=== PATIENT | female | born 1990 | race Caucasian/White ===

== ENCOUNTER → 2021-01-08 14:53 | Outpatient (CLI) | payer OTHER, SELFPAY ==
[2021-01-08 10:39] VITALS: BMI 29.3
[2021-01-08 16:30] LABS: Amphetamine Urine VISTA NEGATIVE (<1000 ng/mL); Barbiturate Urine VISTA NEGATIVE (< 200 ng/mL); Benzodiazepine Urine VISTA NEGATIVE (< 200 ng/mL); Cocaine Urine VISTA NEGATIVE (< 300 ng/mL); Ecstacy Urine VISTA NEGATIVE (< 500 ng/mL); Methadone Urine VISTA NEGATIVE (< 300 ng/mL); PCP Urine VISTA NEGATIVE (< 25 ng/mL); THC Urine VISTA NEGATIVE (< 50 ng/mL); Vista UDS pH Range 6
[2021-01-11 03:07] LABS: Chlamydia By Nucleic Acid AMP Negative (Negative)
[2021-01-11 13:29] LABS: Gonococcus By Nucleic Acid AMP Negative (Negative)
[2021-01-16 12:41] LABS: HPV APTIMA, High Risk Negative (Negative)
== END ==
PROVIDERS: Referring Provider Obstetrics & Gynecology; Visit Provider Obstetrics & Gynecology
DX: Z34.00 Encounter for supervision of normal first pregnancy, unspecified trimester (principal); Z12.4 Encounter for screening for malignant neoplasm of cervix
CPT/HCPCS: 80307; 87086; 87491; 87591; 87624; 88175; G0145

== ENCOUNTER → 2021-01-24 11:09 | Outpatient (CLI) | payer OTHER, SELFPAY ==
[2021-01-08 10:39] VITALS: BMI 29.3
[2021-01-24 11:37] LABS: Absolute Lymphocyte Count 1.15 X10^3/uL (0.83-4.51); Absolute Neutrophil Count 5.1 X10^3/uL (2.0-7.7); Basophil# 0.02 X10^3/uL; Basophil% 0.3 % (0-1); Eosinophil# 0.02 X10^3/uL; Eosinophils% 0.3 % (0-5); Hematocrit 39.3 % (37-47); Hemoglobin 13.4 g/dL (12.0-15.0); Lymphocyte # 1.15 X10^3/ul (0.83-4.51); Mean Corp Hgb Conc 34.1 g/dL (32-36); Mean Corpuscular Hgb 29.8 pg (27.0-32.0); Mean Corpuscular Volume 87.3 fL (81-99); Mean Platelet Vol. 9.5 fl (6.2-12.0); Monocyte# 0.46 X10^3/uL; Monocyte% 6.8 % (0-10); NRBC Flagged by Analyzer 0 % (0-5); Neutrophil % 75.2 % (47-70); Platelet Count 258 K/mm3 (150-450); RBC Distribution Width CV 12.1 % (11.6-14.6); RBC Distribution Width SD 38.8 fl (35.1-43.9); White Blood Count 6.8 K/mm3 (4.4-11.0)
[2021-01-24 12:20] LABS: NATERA MAILED SPECIMEN
[2021-01-24 12:38] LABS: HIV - WCH Non-Reactive (Nonreactive); Hepatitis B Surface Antigen Non-Reactive (Nonreactive); Hepatitis C Antibody Non-Reactive (Nonreactive); Rubella IgG Reactive (Nonreactive); Syphilis Antibodies Non-reactive
== END ==
PROVIDERS: Referring Provider Obstetrics & Gynecology; Visit Provider Obstetrics & Gynecology
DX: Z34.81 Encounter for supervision of other normal pregnancy, first trimester (principal)
CPT/HCPCS: 36415; 85025; 86703; 86762; 86780; 86803; 86850; 86900; 86901; 87340

== ENCOUNTER → 2021-05-17 09:03 | Outpatient (CLI) | payer OTHER, SELFPAY ==
[2021-05-17 09:23] LABS: Absolute Neutrophil Count 10.8 X10^3/uL (2.0-7.7); Basophil# 0.02 X10^3/uL; Basophil% 0.2 % (0-1); Eosinophil# 0.05 X10^3/uL; Eosinophils% 0.4 % (0-5); Hematocrit 36.3 % (37-47); Hemoglobin 12.4 g/dL (12.0-15.0); Mean Corp Hgb Conc 34.2 g/dL (32-36); Mean Corpuscular Hgb 30.8 pg (27.0-32.0); Mean Corpuscular Volume 90.3 fL (81-99); Mean Platelet Vol. 10.2 fl (6.2-12.0); Monocyte# 0.74 X10^3/uL; Monocyte% 5.7 % (0-10); NRBC Flagged by Analyzer 0 % (0-5); Neutrophil # 10.78 X10^3/uL (2.7-7.7); Neutrophil % 82.9 % (47-70); Platelet Count 214 K/mm3 (150-450); RBC Distribution Width CV 12.7 % (11.6-14.6); RBC Distribution Width SD 41.7 fl (35.1-43.9); Red Blood Count 4.02 M/mm3 (4.2-5.4)
[2021-05-17 09:32] LABS: Glucose Challenge Gest 1H 50g 91 mg/dL (70-140)
== END ==
PROVIDERS: Referring Provider Obstetrics & Gynecology; Visit Provider Obstetrics & Gynecology
DX: Z34.01 Encounter for supervision of normal first pregnancy, first trimester (principal)
CPT/HCPCS: 36415; 82950; 85025

== ENCOUNTER 2021-07-18 20:43 | Outpatient (CLI) | payer OTHER, MEDICAID, SELFPAY | END 2021-07-18 23:59 | disposition home or self-care (01) | LOC: LABSPEC 10-10 20:43 | PROVIDERS: Visit Provider Obstetrics & Gynecology | DX: Z34.93 Encounter for supervision of normal pregnancy, unspecified, third trimester (principal); Z3A.36 36 weeks gestation of pregnancy | CPT/HCPCS: 87081 ==

== ENCOUNTER 2021-07-23 16:28 | Inpatient (IN) | payer OTHER, MEDICAID, SELFPAY ==
[2021-07-23] VITALS (8 sets, daily range): BP systolic 119–134; BP diastolic 63–66; PULSE 73–127; TEMP 36.6–36.8; O2SAT 80–98; BMI 33.0
[2021-07-23 16:26] LABS: ROM Internal Control Test YES-OK TO RESULT pt. (Internal QC)
[2021-07-23 16:27] LABS: ROM Patient Test POSITIVE (Negative)
[2021-07-23] MEDS: Lactated Ringers 1,000 ML 50 ML IV (16:55)
[2021-07-23 17:29] LABS: Absolute Neutrophil Count 8.1 X10^3/uL (2.0-7.7); Basophil# 0.04 X10^3/uL; Basophil% 0.4 % (0-1); Eosinophil# 0.04 X10^3/uL; Eosinophils% 0.4 % (0-5); Hematocrit 33.7 % (37-47); Hemoglobin 11.2 g/dL (12.0-15.0); Lymphocyte % 9.3 % (19-41); Mean Corp Hgb Conc 33.2 g/dL (32-36); Mean Corpuscular Hgb 29.4 pg (27.0-32.0); Mean Corpuscular Volume 88.5 fL (81-99); Mean Platelet Vol. 11.7 fl (6.2-12.0); Monocyte# 0.46 X10^3/uL; Monocyte% 4.7 % (0-10); NRBC Flagged by Analyzer 0 % (0-5); Neutrophil # 8.13 X10^3/uL (2.7-7.7); Neutrophil % 83.7 % (47-70); Platelet Count 247 K/mm3 (150-450); RBC Distribution Width CV 13.3 % (11.6-14.6); RBC Distribution Width SD 42.7 fl (35.1-43.9); Red Blood Count 3.81 M/mm3 (4.2-5.4); White Blood Count 9.7 K/mm3 (4.4-11.0)
--- NOTE | 2021-07-23 17:57 | HP.PCM.OB_ITS ---
HPI - General General Date of Admission: 07/23/21 HPI Narrative RAYA AMANDA, is a 31 @ 36 weeks 5 days F who presents to L&D with permature rupture of membranes. Maternal Data Information SALMA Calculator Estimated Delivery Date Method Current WG Current Estimate 08/15/21 LMP (Certain) 36w 5d Other Estimates 08/11/21 Ultrasound #1 37w 2d PFSH PFSH Medical History (Updated 07/23/21 @ 17:[address] Mable Wong, DO) History of cleft lip Home Medications prenat.vits,franck,zcz-efse-vicid 1 tab PO DAILY 12/19/20 [History Last Taken 07/22/21 08:00] famotidine 20 mg tablet 20 mg PO BID #30 tab 06/27/21 [Rx Last Taken Unknown] Allergy/AdvReac Type Severity Reaction Status Date / Time No Known Allergies Allergy Verified 07/23/21 15:52 Family History Grandfather Cancer Surgical History (Updated 07/23/21 @ 17:10 by Roopa Francisco) H/O bone graft H/O cleft lip repair Social History adopted: No household members: significant other current occupational status: employed current occupation: [employer] pets and animals: Yes pets and animals: dog(s) and ferret(s) Smoking Status: Never smoker alcohol intake: current details: not while substance use type: does not use History 1 Elective abortions Hx Para 0 Spontaneous abortions Hx # Term Pregnancies Ectopic pregnancies Hx # Pregnancies Multiple births # of living children Visit Details Expected Delivery Route/Plan Labor Preferences- CB/BF classes: enc labor support person: Chris labor intervention preferences: [] pain management options preferred: epidural cut cord/dad catch: yes : yes PP control planned: discussed discussed possible routes of delivery and associated risks: [] special requests: [] Plans covid status: counseled regarding risk of covid in vs vaccination and declined vaccination flu vaccine: declines tdap vaccine: given rhogam: NA LARC form signed: yes movement and labor precautions reviewed. Problem list reviewed and updated with the most current plan of care details and appropriate orders placed. Relevant counseling for the gestational age provided. Continue routine care and follow up unless otherwise noted in visit notes/problem list details OB Flowsheet Initial Weight: 176 lb Date -?-?-?-?-?-?-?-?-?-?-?-?- EGA Weight BP Urine Prot -?-?-?-?-?-?-?-?-?-?-?-?- Glucose FHR FuHt Pres Dilation -?-?-?-?-?-?-?-?-?-?-?-?- Effaced St Visit Note 01/08/21 -?-?-?-?-?-?-?-?-?-?-?-?- 8w 5d 176 lb 6 oz (+6 oz) 144/92 -?-?-?-?-?-?-?-?-?-?-?-?- 168 -?-?-?-?-?-?-?-?-?-?-?-?- GP - CRL consist ent with LMP 02/05/21 -?-?-?-?-?-?-?-?-?-?-?-?- 12w 5d 175 lb 8 oz (-8 oz) 126/80 Negative -?-?-?-?-?-?-?-?-?-?-?-?- Negative 160 -?-?-?-?-?-?-?-?-?-?-?-?- GP - no cramping or bleeding. Anatomy ordered. Having a boy! 03/07/21 -?-?-?-?-?-?-?-?-?-?-?-?- 17w 0d 179 lb (+3 lb) 120/80 Negative -?-?-?-?-?-?-?-?-?-?-?-?- Negative 155 -?-?-?-?-?-?-?-?-?-?-?-?- GP - no cramping or bleeding. +FM. Has not heard from MFM about anatomy scan - order re-sent 03/30/21 -?-?-?-?-?-?-?-?-?-?-?-?- 20w 2d 182 lb (+6 lb) 112/62 Negative -?-?-?-?-?-?-?-?-?-?-?-?- Negative 140 -?-?-?-?-?-?-?-?-?-?-?-?- SM- no vb lof cr amping needs fu views for anatomy 04/25/21 -?-?-?-?-?-?-?-?-?-?-?-?- 24w 0d 189 lb 9 oz (+13 lb 9 oz) 122/80 Negative -?-?-?-?-?-?-?-?-?-?-?-?- Negative 150 -?-?-?-?-?-?-?-?-?-?-?-?- GP - no ctx, LOF , VB, DFM. Anatomy nl. GCT next visit. 05/17/21 -?-?-?-?-?-?-?-?-?-?-?-?- 27w 1d 193 lb 6 oz (+17 lb 6 oz) 136/84 Negative -?-?-?-?-?-?-?-?-?-?-?-?- Negative 154 28 -?-?-?-?-?-?-?-?-?-?-?-?- MH-No VB, LOF. G ood Fm. 28 wk labs reviewed-nl. Larc done. Considering tdap. declines flu vaccine 06/01/21 -?-?-?-?-?-?-?-?-?-?-?-?- 29w 2d 194 lb 4 oz (+18 lb 4 oz) 114/80 Negative -?-?-?-?-?-?-?-?-?-?-?-?- Negative -?-?-?-?-?-?-?-?-?-?-?-?- 06/14/21 -?-?-?-?-?-?-?-?-?-?-?-?- 31w 1d 198 lb 2 oz (+22 lb 2 oz) 120/78 Negative -?-?-?-?-?-?-?-?-?-?-?-?- Negative 155 32 -?-?-?-?-?-?-?-?-?-?-?-?- JV- no lof, vagi nal bleeding or dec fm. JV- no lof, vaginal bleeding or dec fm. normal GCT. (note from last week was erased, no conerns last visit) 06/27/21 -?-?-?-?-?-?-?-?-?-?-?-?- 33w 0d 198 lb (+22 lb) 100/80 Negative -?-?-?-?-?-?-?-?-?-?-?-?- Negative 159 33 -?-?-?-?-?-?-?-?-?-?-?-?- JV- no lof, vagi nal bleeding, or dec fm. pepcid for heart burn. pt has referred pain to middle of back. 07/12/21 -?-?-?-?-?-?-?-?-?-?-?-?- 35w 1d 195 lb 8 oz (+19 lb 8 oz) 118/72 Trace -?-?-?-?-?-?-?-?-?-?-?-?- Negative 154 35 -?-?--?-?-?-?-?-?-?-?-?-?- MH-No VB, LOF. G ood FM. tdap given. 07/18/21 -?-?-?-?-?-?-?-?-?-?-?-?- 36w 0d 199 lb 6 oz (+23 lb 6 oz) 118/88 -?-?-?-?-?-?-?-?-?-?-?-?- 140 36 Cephalic 1 -?-?-?-?-?-?-?-?-?-?-?-?- 20 -4 SM- no vb lof good fm no reuglar ctx gbs done 07/23/21 -?-?-?-?-?-?-?--?-?-?-?-?- 36w 5d 198 lb 3.129 oz (+22 lb 3.129 oz) 130/66 -?-?-?-?-?-?-?-?-?-?-?-?- -?-?-?-?-?-?-?-?-?-?-?-?- ROS Constitutional Constitutional: Denies change in weight, fatigue, fever(s), headache(s), poor a ppetite or weakness Eyes Eyes: Denies blurry vision, change in vision, seeing flashes or spots in vision ENT HEENT: Denies dizziness, headache(s), loss taste/smell or sore throat Cardiovascular Cardiovascular: Denies chest pain, dizziness, dyspnea, irregular heart rhythm, leg edema, palpitations, rapid heart rate or vomiting Respiratory/Chest Respiratory/Chest: Denies chest tightness, cough, dyspnea or breast pain Gastrointestinal Gastrointestinal: Denies abdominal pain, anorexia, constipation, cramping, diarrhea, hemorrhoids, vomiting or weight changes Genitourinary Genitourinary: Denies dysuria, flank pain, genital lesions, genital pain, urinary frequency or urinary urgency Musculoskeletal Musculoskeletal: Denies back pain, difficulty walking, joint pain, limited range of motion, muscle cramps or numbness Integumentary Integumentary: Denies lesions or unusual bruising Neurologic Neurologic: Denies abnormal movements, abnormal speech, dizziness, numbness, seizure-like activity or syncope Psychiatric Psychiatric: Denies anxiety, behavioral changes, change in appetite, change in libido, cognitive impairment, confusion, depression, difficulty concentrating, hallucinations or suicidal thoughts Endocrine Endocrinology: Denies excessive sweating, polydipsia or polyuria Hematologic/Lymphatic Hematologic/Lymphatic: Denies easy bleeding, easy bruising or lymphadenopathy Allergic/Immunologic Allergic/Immunologic: Denies itchy eyes, lip swelling, seasonal rhinorrhea, rhinitis, throat swelling, tongue swelling, eczemia, wheezing or asthma Vital Signs Vital Signs Vital Signs: 07/23/21 15:51 Pulse Rate 79 Blood Pressure 130/66 H BP Systolic 130 BP Diastolic 66 Pulse Ox 98 Weight Weight: 198 lb 3.129 oz Body Mass Index (BMI) 33.0 Physical Exam Const alert, oriented x3, no apparent distress and healthy appearing General Appearance: cooperative; Negative for anxious HEENT normocephalic Face and Sinus: normal facial exam Eyes EOMs intact bilaterally and no scleral icterus General Eye: normal appearance of both eyes Neck full ROM and supple Lymph Lymphatic: no lymphadenopathy noted Chest Chest: abnormal inspection of the chest Resp normal respiratory effort Effort and Inspection: able to speak in complete sentences Cardio regular rate GI soft to palpation and non-tender Inspection: gravid Palpation: soft; Negative for tender external exam normal Amniotic Fluid: ROM+plus positive + Back/Spine no CVA tenderness Extremity normal to inspection, full ROM and no clubbing, cyanosis or edema General Extremity: Negative for calf tenderness or edema Skin Lesions: no lesions Rashes: no rashes Psych mental status grossly normal Labs Labs Labs: Blood Type O POSITIVE Antibody Screen NEGATIVE Hct 33.7 % (37-47) L Hgb 11.2 g/dL (12.0-15.0) L Syphilis Total Ab Non-reactive Rubella IgG Antibody Reactive (Nonreactive) Hep Bs Antigen Non-Reactive (Nonreactive) Neisseria gonorrhoeae DNA (VAMSI) Negative (Negative) HIV 1&2 Antibody Non-Reactive (Nonreactive) Glucose 1 Hr 50 gm 91 mg/dL (70-140) Assessment & Plan (1) PROM (premature rupture of membranes): PLAN: Patient presents IOL, plan management for with cytoted (buccal) pitocin/AROM. Pain management: plans epidural. GBS negative. Management of any complications: none I have reviewed the [facility] and made any clinically relevant updates. (2) Supervision of normal first : QUALIFIERS: Trimester: first trimester Qualified Code(s): Z34.01 - Encounter for supervision of normal first , first trimester COMMENT: PRR SALMA 08/15/21 boy BF: Keri) (3) : QUALIFIERS: Weeks of gestation: 36 weeks Qualified Code(s): Z3A.36 - 36 weeks gestation of COMMENT: declines carrier and AFP, LR genetics Male; NL anatomy, nml 1 hr GCT (4) History of tetanus, diphtheria, and acellular pertussis booster vaccination (Tdap): COMMENT: 07/12/21 (5) History of cleft lip: COMMENT: unilateral with repair as , offered genetic counseling - declined
[2021-07-23] MEDS: miSOPROStol 25 MCG TABLET PO (20:06)
[2021-07-23] MEDS: 0.9% Saline Lock 10 ML Syringe IV (20:07)
[2021-07-24] VITALS (58 sets, daily range): BP systolic 100–153; BP diastolic 52–76; PULSE 44–116; RESP 16; TEMP 35.9–38.6; O2SAT 78–100
[2021-07-24] MEDS: miSOPROStol 25 MCG TABLET PO (00:07)
[2021-07-24] MEDS: 0.9% Saline Lock 10 ML Syringe IV (04:12)
[2021-07-24] MEDS: Oxytocin 30 units/NS 500 ml 30 UNITS/500 ML IV.SOLN IV (04:17)
[2021-07-24] MEDS: Lactated Ringers 500 ML 999 ML IV ×4 (06:35→16:47)
[2021-07-24] MEDS: Ondansetron 4 MG/2 ML Vial IV (06:47)
[2021-07-24] MEDS: fentaNYL-bupivacaine (epidural) 100 ML BAG EPIDURAL ×3 (09:00→17:29)
[2021-07-24] MEDS: Amnioinfusion- 0.9% NS 1,000 ML IV.SOLN. 1000 ML INTRA-UTER (10:39)
[2021-07-24] MEDS: Lactated Ringers 1,000 ML 200 ML IV (12:43)
[2021-07-24] MEDS: Acetaminophen 500 MG Tablet PO (13:31)
--- NOTE | 2021-07-24 17:47 | PLAC_PTH ---
PATIENT: RAYA AMANDA LOC: [facility] U#:[id number] AGE/SX: 31/F ROOM: WP017 RE07/23/[address]: Dr. Mable Wong DO : 1990 BED: 1 DIS: 07/26/2021 SPEC #: [id number] RECD: 07/24/21 21:16 STATUS: ROCKY BRIAN #: [id number] RE: 07/24/21 17:[address]: Mable Wong DEPT: SURGICAL PATHOLOGY RECD BY: Luann Guadarrama ENTERED: 07/25/21 09:29 SP TYPE: PLACENTA OTHR DR: No Primary Care Phys Tissues: Placenta, NOS Procedures: Surgery Specimen Level V HEADER OPERATION: Vaginal delivery PRE-OP DIAGNOSIS: Triple I TISSUE SUBMITTED: Placenta MICROSCOPIC DIAGNOSIS Placenta: Placental disc - third trimester placenta (511 gm). - A focal area of infarction (1 cm in diameter). - Focal acute vasculitis of subamniotic blood vessels. Membranes ? moderate acute chorioamnionitis. Umbilical cord - three blood vessels and moderate acute funisitis. TANYA:rebecca 07/27/2021 MICROSCOPIC DESCRIPTION Slides are reviewed. GROSS DESCRIPTION SPECIMEN: PLACENTA / CLINICAL INFORMATION: A. Weight: 3.13 kg B. Gestational Age: 36 weeks C. Sex: Male PLACENTAL WEIGHT (POST FIXATION): 511 gm PLACENTAL DIMENSIONS: 19 x 15 x 2.8 cm PLACENTAL SHAPE: Usual ovoid PLACENTAL WEIGHT FOR GESTATIONAL AGE: Within 10-99th percentile MEMBRANES - Present A. Insertion: Marginal B. Site of rupture from edge: 8 cm from edge of placental disc C. Color of membrane: Joshi-caballero D. Abnormalities: None UMBILICAL CORD - Present A. Color: Joshi-caballero B. Insertion: Paracentral C. Length: 31 cm D. Diameter: 1.2 cm E. Number of vessels: Three F. Abnormalities: None PLACENTAL DISC - Present A. Color of surface: Joshi-caballero B. surface abnormalities: None C. Maternal cotyledons: Intact with minimal tears D. Attached retro placental clot: No clot E. Cut surface: Dark red and spongy F. Lesions: Sections reveal a joshi, hemorrhagic lesion measuring 1 cm in diameter. G. Separate clot: Absent SECTIONS SUBMITTED: 1. Membrane roll 2. Cord, maternal end 3. Cord, end 4. Placental disc, and maternal surfaces, lesion 5. Placental disc, and maternal surfaces 6. Placental disc, and maternal surfaces SJ:rebecca 07/26/2021 TC:2 CPT: 88940
[2021-07-24] MEDS: Oxytocin 30 units/NS 500 ml 30 UNITS/500 ML IV.SOLN 334 UNITS IV (17:53)
--- NOTE | 2021-07-24 18:01 | OP.PCM_ITS ---
Assessment & Plan (1) Chorioamnionitis in third trimester: COMMENT: amp and gent given x 1 (2) PROM (premature rupture of membranes): (3) Supervision of normal first : QUALIFIERS: Trimester: first trimester Qualified Code(s): Z34.01 - Encounter for supervision of normal first , first trimester COMMENT: PRR SALMA 08/15/21 boy BF: Chris(Adelfo) (4) : QUALIFIERS: Weeks of gestation: 36 weeks Qualified Code(s): Z3A.36 - 36 weeks gestation of COMMENT: declines carrier and AFP, LR genetics Male; NL anatomy, nml 1 hr GCT (5) History of tetanus, diphtheria, and acellular pertussis booster vaccination (Tdap): COMMENT: 07/12/21 (6) History of cleft lip: COMMENT: unilateral with repair as infant, offered genetic counseling - declined (7) Vaginal delivery: COMMENT: SM PROM 36 boy davon chorio Maternal Data Information SALMA Calculator Estimated Delivery Date Method Current WG Current Estimate 08/15/21 LMP (Certain) 36w 6d Other Estimates 08/11/21 Ultrasound #1 37w 3d Vaginal Delivery Operative Information Date of Procedure: 07/24/21 Pre-Operative Diagnosis: IAL Post-Operative Diagnosis: same Surgery / Procedure Performed: Spontaneous Vaginal Delivery Type of Anesthesia: Epidural Special Medications: none Estimated Blood Loss: 100 Fluids Replaced: crystalloid Findings Description of Procedure: Patient began pushing and delivered the head in the L OA presentation. The head was delivered atraumatically and a loose nuchal cord ?1 was identified and the infant delivered through without complication. The anterior and posterior shoulders delivered without complication followed by the rest of the infant and the was placed on the maternal abdomen. body cord tight x 2 unraveled. Delayed cord clamping was employed for approximately 60 seconds. Cord was clamped and cut and gentle traction was applied to the cord and the placenta delivered spontaneously immediately following it was noted to be intact with three-vessel cord. The perineum and vagina were inspected and noted to have a small 1st degree perineal laceration repaired in the usual fashion 3-0 rapide. EBL was 100 cc. Patient and tolerated delivery well. Presentation: KARAN Amniotic Membrane Rupture Type: Artificial Amniotic Fluid Description: Clear Placental Delivery Description: Spontaneous Placenta Disposition: [facility] Cord Vessel Description: 3 Vessels Cord Entanglement: None Delayed Cord Clamping: Yes Post Vaginal Delivery Medications Given After Delivery: IV Pitocin Episiotomy Description: None Laceration: Perineal Extension/lac and 1st degree Complication Complications: None Procedures Urinary/Genital [id number]: [id number] Vaginal Delivery [facility]
--- NOTE | 2021-07-24 18:03 | PCM.DC ---
Discharge Instructions Diet Discharge Diet: No restrictions Activity Discharge Activity: Return to Normal Activity, May Not Drive (while taking narcotic pain medications.) and May Shower May resume sexual activity in: 4-6 weeks Dressing / Incision Call your doctor if your incision/area has: Continuous Slow Oozing, Sudden Increased Bleeding, Increased Pain/ Swelling, Increased Redness and Foul Smelling Discharge Follow Up Care Please Follow Up With: Stacey Hammonds MD When: Call [phone] to make an appointment with your doctor in 6 weeks. If you had elevated blood pressure or 4th degree laceration, you will need to be seen in 2 weeks. Test Results: Test results from this visit will be discussed in further detail at your follow-up appointment, if applicable. Discharge Plan Admission Admit Date/Time: 07/23/21 16:28 Attending Provider: Mable Wong Primary Care Provider: Care Rina Haines Primary Discharge Orders/Prescriptions Prescriptions: No Action prenat.vits,franck,ydl-xdvo-svcwc Tablet 1 tab PO DAILY RF: 0 famotidine [Pepcid] 20 mg tablet 20 mg PO BID Qty: 30 RF: 6 Referrals / Follow Up: Care Physician,No Primary [Primary Care Provider] - Disposition Disposition (needs filled in before D/C Order can be placed): Home, Self Care
[2021-07-24] MEDS: Naproxen 500 MG Tablet PO (19:32)
[2021-07-24 22:02] LABS: Pathology Specimen OB SEE PATHOLOGY REPORT
[2021-07-25] VITALS (11 sets, daily range): BP systolic 101–118; BP diastolic 54–60; PULSE 68–82; RESP 16–18; TEMP 36.2–36.6; O2SAT 93–98
[2021-07-25] MEDS: Naproxen 500 MG Tablet PO ×3 (04:27→21:05)
[2021-07-25] MEDS: Lactated Ringers 1,000 ML 999 ML IV (07:51)
--- NOTE | 2021-07-25 07:51 | PCM.PN.OB ---
Subjective Subjective Patient doing well without complaints. Tolerating PO. Ambulating and voiding without difficulty. Feeding well. Denies chest pain, shortness of breath, calf pain/swelling, fevers, chills, lightheadedness. Afebrile since delivery Objective Data Objective Data Vital Signs: Vital Signs Temp Pulse Resp BP Pulse Ox 97.2 F L 68 18 106/54 L 96 07/25/21 04:23 07/25/21 04:24 07/25/21 04:23 07/25/21 04:24 07/25/21 00:54 Oxygen Delivery Method Room Air Weight: 198 lb 3.129 oz Body Mass Index (BMI) 33.0 Intake & Output: Intake and Output for Last 24 Hours 07/23/21 07/24/21 07/25/21 23:59 23:59 23:59 Intake Total 162.5 / 162.5 4482.92 / 4482.92 Output Total 450 / 450 400 / 400 Balance 162.5 / 162.5 4032.92 / 4032.92 -400 / -400 Lab / Micro Data Result Diagrams: 07/23/21 16:55 Micro: Microbiology 07/23/21 16:55 Nasal Secretion SARS-CoV-2 Antigen (Rapid) - Final Physical Exam Const alert and oriented x3 HEENT normocephalic Eyes PERRL Neck full ROM Resp normal respiratory effort GI soft to palpation GI Narrative: FF below U Assessment & Plan (1) Vaginal delivery: COMMENT: SM PROM 36 boy davon chorio (2) Chorioamnionitis in third trimester: QUALIFIERS: Fetus number: single or unspecified fetus Qualified Code(s): O41.1230 - Chorioamnionitis, third trimester, not applicable or unspecified COMMENT: amp and gent given x 1 PLAN: s/p PPD #1 1. routine post delivery care 2. breast feeding- support given 3. rh positive 4. rubella immune 5. CBC, lactate and also give IV bolus LR.
[2021-07-25] MEDS: Acetaminophen 500 MG Tablet 1000 MG PO (08:13)
[2021-07-25 08:21] LABS: Absolute Lymphocyte Count 1.17 X10^3/uL (0.83-4.51); Absolute Neutrophil Count 27.8 X10^3/uL (2.0-7.7); Basophil# 0.05 X10^3/uL; Basophil% 0.2 % (0-1); Eosinophil# 0.01 X10^3/uL; Hematocrit 29.1 % (37-47); Hemoglobin 9.8 g/dL (12.0-15.0); Lymphocyte # 1.17 X10^3/ul (0.83-4.51); Lymphocyte % 3.8 % (19-41); Mean Corp Hgb Conc 33.7 g/dL (32-36); Mean Corpuscular Hgb 30.2 pg (27.0-32.0); Mean Corpuscular Volume 89.8 fL (81-99); Mean Platelet Vol. 11.9 fl (6.2-12.0); Monocyte# 1.34 X10^3/uL; Monocyte% 4.4 % (0-10); NRBC Flagged by Analyzer 0 % (0-5); Neutrophil # 27.82 X10^3/uL (2.7-7.7); Neutrophil % 90.8 % (47-70); POSITIVE COUNT YES; POSITIVE DIFFERENTIAL YES; Platelet Count 193 K/mm3 (150-450); RBC Distribution Width SD 45.3 fl (35.1-43.9); Red Blood Count 3.24 M/mm3 (4.2-5.4)
[2021-07-25 08:34] LABS: Differential Indicated SCAN CRITERIA MET; White Blood Count 30.6 K/mm3 (4.4-11.0)
[2021-07-25 08:59] LABS: Differential Comment SCANNED
[2021-07-25 09:21] LABS: Lactic Acid 1.5 mmol/L (0.4-1.9)
[2021-07-25] MEDS: Senna/Docusate Sodium 1 Tablet PO (11:12)
[2021-07-26 02:13] VITALS: BP 103/52; PULSE 77; RESP 18; TEMP 36.3
[2021-07-26 02:15] VITALS: BP 103/52; PULSE 77
[2021-07-26 07:55] VITALS: TEMP 36.4
[2021-07-26 07:56] VITALS: BP 115/55; PULSE 74
--- NOTE | 2021-07-26 07:56 | PCM.PN.OB ---
Subjective Subjective Patient doing well without complaints. Tolerating PO. Ambulating and voiding without difficulty. Feeding well. Denies chest pain, shortness of breath, calf pain/swelling, fevers, chills, lightheadedness. Noting elevated WBC today but afebrile. BP still slightly low. Objective Data Objective Data Vital Signs: Vital Signs Temp Pulse Resp BP Pulse Ox 97.3 F L 77 18 103/52 L 98 07/26/21 02:13 07/26/21 02:15 07/26/21 02:13 07/26/21 02:15 07/25/21 07:59 Oxygen Delivery Method Room Air Weight: 198 lb 3.129 oz Body Mass Index (BMI) 33.0 Intake & Output: Intake and Output for Last 24 Hours 07/24/21 07/25/21 07/26/21 23:59 23:59 23:59 Intake Total 4482.92 / 4482.92 Output Total 450 / 450 400 / 400 Balance 4032.92 / 4032.92 -400 / -400 Lab / Micro Data Result Diagrams: 07/25/21 07:45 Labs: Laboratory Results - last 24 hr 07/25/21 07:45: WBC 30.6 H*, RBC 3.24 L, Hgb 9.8 L, Hct 29.1 L, MCV 89.8, MCH 30.2, MCHC 33.7, RDW Std Deviation 45.3 H, RDW Coeff of Candice 14.0, Plt Count 193, MPV 11.9, Immature Gran % (Auto) 0.800, Neut % (Auto) 90.8 H, Lymph % (Auto) 3.8 L, [place] % (Auto) 4.4, Eos % (Auto) 0.0, Baso % (Auto) 0.2, Absolute Neuts (auto) 27.8 H, Absolute Lymphs (auto) 1.17, Nucleated RBC % 0, Differential Comment SCANNED, Diff Path Review November07/25/21 08:39: Lactic Acid 1.5 Micro: Microbiology 07/23/21 16:55 Nasal Secretion SARS-CoV-2 Antigen (Rapid) - Final Physical Exam Const alert and oriented x3 HEENT normocephalic Eyes PERRL Neck full ROM Resp normal respiratory effort GI soft to palpation GI Narrative: FF below U Assessment & Plan (1) Vaginal delivery: COMMENT: SM PROM 36 boy davon chorio (2) Chorioamnionitis in third trimester: QUALIFIERS: Fetus number: single or unspecified fetus Qualified Code(s): O41.1230 - Chorioamnionitis, third trimester, not applicable or unspecified COMMENT: amp and gent given x 1 PLAN: s/p PPD # 2 1. routine post delivery care 2. breast feeding- support given 3. rh positive 4. rubella immune 5. will recheck CBC and lactate 6. plans home today
[2021-07-26 08:15] VITALS: BP 115/55; PULSE 74; RESP 16; TEMP 36.4
[2021-07-26 08:28] LABS: Absolute Lymphocyte Count 1.38 X10^3/uL (0.83-4.51); Absolute Neutrophil Count 14.1 X10^3/uL (2.0-7.7); Basophil# 0.04 X10^3/uL; Basophil% 0.2 % (0-1); Eosinophil# 0.09 X10^3/uL; Eosinophils% 0.5 % (0-5); Hematocrit 27.6 % (37-47); Hemoglobin 9.2 g/dL (12.0-15.0); Lymphocyte # 1.38 X10^3/ul (0.83-4.51); Lymphocyte % 8.4 % (19-41); Mean Corp Hgb Conc 33.3 g/dL (32-36); Mean Corpuscular Hgb 30.2 pg (27.0-32.0); Mean Corpuscular Volume 90.5 fL (81-99); Mean Platelet Vol. 11.1 fl (6.2-12.0); Monocyte# 0.63 X10^3/uL; Monocyte% 3.8 % (0-10); NRBC Flagged by Analyzer 0 % (0-5); Neutrophil # 14.06 X10^3/uL (2.7-7.7); Neutrophil % 85.2 % (47-70); Platelet Count 195 K/mm3 (150-450); RBC Distribution Width CV 13.9 % (11.6-14.6); RBC Distribution Width SD 45.1 fl (35.1-43.9); Red Blood Count 3.05 M/mm3 (4.2-5.4); White Blood Count 16.5 K/mm3 (4.4-11.0)
[2021-07-26 08:53] LABS: Lactic Acid 1.3 mmol/L (0.4-1.9)
[2021-07-26 13:01] LABS: Pathologist Review Reviewed
== END 2021-07-26 12:07 | disposition home or self-care (01) | DRG 805 ==
LOC: WP 07-24 17:56 → WPOUT 07-27 12:37
PROVIDERS: Nurse Practitioner Women's Health; Obstetrics & Gynecology; Admitting Provider Obstetrics & Gynecology; Visit Provider Obstetrics & Gynecology
DX: O42.913 Preterm premature rupture of membranes, unspecified as to length of time between rupture and onset of labor, third trimester (principal); Z37.0 Single live birth; O41.1230 Chorioamnionitis, third trimester, not applicable or unspecified; O70.0 First degree perineal laceration during delivery; Z3A.36 36 weeks gestation of pregnancy
CPT/HCPCS: 59025; 59050; 83605; 84112; 85025; 86850; 86900; 86901; 87426; 88307; 99218; J7030; J7120; A4216; G0378; J2405

== ENCOUNTER → 2022-11-08 | Outpatient (CLI) | payer MEDICAID, SELFPAY | END | disposition home or self-care (01) | LOC: LABSPEC 16:53 | PROVIDERS: Referring Provider Obstetrics & Gynecology; Visit Provider Obstetrics & Gynecology | DX: N91.2 Amenorrhea, unspecified (principal) ==

== ENCOUNTER → 2022-11-09 | Outpatient (CLI) | payer MEDICAID, SELFPAY ==
[2022-11-09 12:05] LABS: hCG Titer Quant., Serum 1017 mIU/mL (1-3)
== END | disposition home or self-care (01) ==
LOC: LAB 11:03
PROVIDERS: Obstetrics & Gynecology; Referring Provider Nurse Practitioner Women's Health; Visit Provider Nurse Practitioner Women's Health
DX: N91.2 Amenorrhea, unspecified (principal)
CPT/HCPCS: 36415; 84702

== ENCOUNTER → 2022-11-15 | Outpatient (CLI) | payer MEDICAID, SELFPAY ==
--- NOTE | 2022-11-15 13:29 | US_ITS ---
STUDY: FIRST TRIMESTER OBSTETRICAL ULTRASOUND REASON FOR EXAM: Female, 32 years old RLQ pain w/early LMP: October 05, 2022 TECHNIQUE: Transvaginal TECHNICAL QUALITY: Adequate. PRIOR ULTRASOUND: None. FINDINGS: There is visualization of a single gestational sac in a normal intrauterine position. The mean sac diameter (MSD) measures 1.13 cm, indicating an estimated gestational age (EGA) of 5 weeks, 6 days. The gestational sac shape is within normal limits. There is a visualized yolk sac. The yolk sac measures 3.6. The placenta is non-visualized. There is no demonstrated embryo ( pole). The estimated gestation age (EGA) by LMP is 5 weeks, 6 days. The estimated date of delivery (SALMA) by LMP is July 12, 2023. The estimated gestation age (EGA) by US is 5 weeks, 6 days. The estimated date of delivery (SALMA) by US is July 12, 2023. The uterus measures 9.1 cm x 5.7 cm x 4.8 cm. There is no demonstrated uterine fibroid. The cervix is closed. The right ovary measures 3.2 cm x 2.9 cm x 2.9 cm. There is a 2.1 cm x 1.8 cm x 1.9 cm dominant follicle in the right ovary. There is no visualized right adnexal mass or complex lesion. The left ovary measures 2.9 cm x 2.6 cm x 1.6 cm.. There is no left ovarian cyst. There is no visualized left adnexal mass or complex lesion. There is no fluid in the cul de sac. US/Transvaginal w/Preg US IMPRESSION: Intrauterine gestation with a mean gestational age of 5 weeks and 6 days. No pole is seen at this time. Electronically Signed: Won Etienne MD at 14:46 EDT ,
== END | disposition home or self-care (01) ==
LOC: US 13:28
PROVIDERS: Referring Provider Nurse Practitioner Women's Health; Visit Provider Nurse Practitioner Women's Health
DX: R10.2 Pelvic and perineal pain (principal)
CPT/HCPCS: 76817

== ENCOUNTER → 2022-11-29 | Outpatient (CLI) | payer MEDICAID, SELFPAY ==
--- NOTE | 2022-11-29 14:06 | US_ITS ---
INDICATION: viability COMPARISON: ultrasound 11/15/2022. FINDINGS: 85 caballero scale ultrasound images demonstrate single live intrauterine measuring at 8 weeks +0 days average ultrasound age. This gives estimated date of delivery by current ultrasound of 07/11/2023. However, crown-rump length measures at 7 weeks +5 days. heart rate 150 bpm. Yolk sac is identified. Adequate amniotic fluid for gestational age. Placenta cannot be definitively identified at this gestational age. Uterine myometrium is unremarkable. Right ovarian hypoechoic lesion measuring up to 2.7 cm, consistent with corpus luteum cyst. Left ovary is suboptimally visualized, although no obvious abnormality. No significant free fluid. US/Transvaginal w/Preg US IMPRESSION: Single live intrauterine measuring at 8 weeks +0 days average ultrasound age. This gives estimated date of delivery by current ultrasound of 07/11/2023. However, crown-rump length measures at 7 weeks +5 days. Electronically Signed: Harsha Maurice MD at 4:04 EDT ,
== END | disposition home or self-care (01) ==
LOC: OPUS 14:05
PROVIDERS: Referring Provider Nurse Practitioner Women's Health; Visit Provider Nurse Practitioner Women's Health
DX: N91.2 Amenorrhea, unspecified (principal)
CPT/HCPCS: 76817

== ENCOUNTER → 2022-12-16 | Outpatient (CLI) | payer MEDICAID, SELFPAY ==
[2022-12-16 14:29] LABS: Absolute Lymphocyte Count 1.98 X10^3/uL (0.83-4.51); Absolute Neutrophil Count 5.1 X10^3/uL (2.0-7.7); Basophil# 0.03 X10^3/uL; Basophil% 0.4 % (0-1); Eosinophil# 0.04 X10^3/uL; Eosinophils% 0.5 % (0-5); Hematocrit 35.5 % (37-47); Hemoglobin 12.4 g/dL (12.0-15.0); Lymphocyte # 1.98 X10^3/ul (0.83-4.51); Lymphocyte % 26.2 % (19-41); Mean Corp Hgb Conc 34.9 g/dL (32-36); Mean Corpuscular Hgb 30.3 pg (27.0-32.0); Mean Corpuscular Volume 86.8 fL (81-99); Mean Platelet Vol. 9.4 fl (6.2-12.0); Monocyte# 0.42 X10^3/uL; Monocyte% 5.5 % (0-10); NRBC Flagged by Analyzer 0 % (0-5); Neutrophil # 5.07 X10^3/uL (2.7-7.7); Platelet Count 228 K/mm3 (150-450); RBC Distribution Width CV 12.3 % (11.6-14.6); RBC Distribution Width SD 38.8 fl (35.1-43.9); Red Blood Count 4.09 M/mm3 (4.2-5.4); White Blood Count 7.6 K/mm3 (4.4-11.0)
[2022-12-16 15:15] LABS: NATERA MAILED SPECIMEN
[2022-12-16 15:37] LABS: HIV - WCH Non-Reactive (Nonreactive); Hepatitis B Surface Antigen Non-Reactive (Nonreactive); Hepatitis C Antibody Non-Reactive (Nonreactive); Rubella IgG Reactive (Nonreactive); Syphilis Antibodies Non-reactive
[2022-12-18 22:06] LABS: Chlamydia By Nucleic Acid AMP Negative (Negative); Gonococcus By Nucleic Acid AMP Negative (Negative)
== END | disposition home or self-care (01) ==
PROVIDERS: Referring Provider Obstetrics & Gynecology; Visit Provider Obstetrics & Gynecology
DX: O09.90 Supervision of high risk pregnancy, unspecified, unspecified trimester (principal); Z3A.00 Weeks of gestation of pregnancy not specified
CPT/HCPCS: 36415; 85025; 86703; 86762; 86780; 86803; 86850; 86900; 86901; 87086; 87088; 87340; 87491; 87591

== ENCOUNTER → 2023-04-07 | Outpatient (CLI) | payer MEDICAID, SELFPAY ==
[2023-04-07 11:21] LABS: Absolute Lymphocyte Count 1.18 X10^3/uL (0.83-4.51); Absolute Neutrophil Count 6.2 X10^3/uL (2.0-7.7); Basophil# 0.02 X10^3/uL; Basophil% 0.3 % (0-1); Eosinophil# 0.05 X10^3/uL; Eosinophils% 0.6 % (0-5); Hematocrit 35.9 % (37-47); Lymphocyte # 1.18 X10^3/ul (0.83-4.51); Lymphocyte % 14.8 % (19-41); Mean Corp Hgb Conc 33.4 g/dL (32-36); Mean Corpuscular Hgb 30.7 pg (27.0-32.0); Mean Corpuscular Volume 91.8 fL (81-99); Mean Platelet Vol. 10.5 fl (6.2-12.0); Monocyte# 0.53 X10^3/uL; Monocyte% 6.6 % (0-10); NRBC Flagged by Analyzer 0 % (0-5); Neutrophil # 6.15 X10^3/uL (2.7-7.7); Neutrophil % 76.8 % (47-70); Platelet Count 194 K/mm3 (150-450); RBC Distribution Width CV 12.7 % (11.6-14.6); RBC Distribution Width SD 41.7 fl (35.1-43.9); Red Blood Count 3.91 M/mm3 (4.2-5.4)
[2023-04-07 11:48] LABS: Glucose Challenge Gest 1H 50g 77 mg/dL (70-140)
[2023-04-07 18:55] LABS: HIV - WCH Non-Reactive (Nonreactive); Syphilis Antibodies Non-reactive
== END | disposition home or self-care (01) ==
PROVIDERS: Referring Provider Obstetrics & Gynecology; Visit Provider Obstetrics & Gynecology
DX: Z34.90 Encounter for supervision of normal pregnancy, unspecified, unspecified trimester (principal)
CPT/HCPCS: 36415; 82950; 85025; 86703; 86780

== ENCOUNTER → 2023-06-17 | Outpatient (CLI) | payer MEDICAID, SELFPAY | END | disposition home or self-care (01) | PROVIDERS: Referring Provider Obstetrics & Gynecology; Visit Provider Obstetrics & Gynecology | DX: O09.90 Supervision of high risk pregnancy, unspecified, unspecified trimester (principal); Z3A.00 Weeks of gestation of pregnancy not specified | CPT/HCPCS: 87081 ==

== ENCOUNTER 2023-07-09 07:10 | Inpatient (IN) | payer MEDICAID, SELFPAY ==
[2023-07-09] VITALS (44 sets, daily range): BP systolic 103–138; BP diastolic 55–82; PULSE 62–102; RESP 16; TEMP 36.3–37.2; O2SAT 94–100; BMI 34.9
[2023-07-09 08:07] LABS: Absolute Lymphocyte Count 1.03 X10^3/uL (0.83-4.51); Absolute Neutrophil Count 8.1 X10^3/uL (2.0-7.7); Basophil# 0.02 X10^3/uL; Basophil% 0.2 % (0-1); Eosinophil# 0.03 X10^3/uL; Eosinophils% 0.3 % (0-5); Hematocrit 34.2 % (37-47); Hemoglobin 11.4 g/dL (12.0-15.0); Lymphocyte # 1.03 X10^3/ul (0.83-4.51); Lymphocyte % 10.5 % (19-41); Mean Corp Hgb Conc 33.3 g/dL (32-36); Mean Corpuscular Hgb 28.7 pg (27.0-32.0); Mean Corpuscular Volume 86.1 fL (81-99); Mean Platelet Vol. 11.2 fl (6.2-12.0); Monocyte% 5.1 % (0-10); NRBC Flagged by Analyzer 0 % (0-5); Platelet Count 193 K/mm3 (150-450); RBC Distribution Width CV 13.2 % (11.6-14.6); RBC Distribution Width SD 41.3 fl (35.1-43.9); Red Blood Count 3.97 M/mm3 (4.2-5.4); White Blood Count 9.8 K/mm3 (4.4-11.0)
[2023-07-09] MEDS: Oxytocin 15 Units/NS 250ml 15 UNITS/250 ML IV.SOLN 2 UNITS IV (08:07)
[2023-07-09] MEDS: Lactated Ringers 1,000 ML 50 ML IV (08:07)
--- NOTE | 2023-07-09 08:38 | HP.PCM.OB_ITS ---
HPI - General General Date of Admission: 07/09/23 HPI Narrative RAYA AMANDA, is a 33 F who presents for elective IOL. at 39+4. uncomplicated course. good fm. no consistent ctx, lof or vb. Maternal Data Information SALMA Calculator Estimated Delivery Date Method Current WG Current Estimate 07/12/23 LMP (Certain) 39w 4d Other Estimates 07/10/23 Ultrasound #1 39w 6d PFSH PFS Medical History (Updated 07/09/23 @ 08:43 by Flory Fernández CNM) History of cleft lip History of pre-term labor History of premature rupture of membranes (PPROM) Prolonged rupture of membranes, delivered Home Medications vitamin no.180-ferrous fumarate 27 mg-folic acid 1 mg tablet ( Plus Vitamin-Mineral) 1 tab PO DAILY 12/16/22 [History Last Taken 07/08/23 08:00] Allergy/AdvReac Type Severity Reaction Status Date / Time No Known Allergies Allergy Verified 07/09/23 07:42 Family History Grandfather Cancer Surgical History H/O bone graft H/O cleft lip repair Social History adopted: No household members: significant other current occupational status: employed current occupation: [employer] pets and animals: Yes pets and animals: dog(s) and ferret(s) Smoking Status: Never smoker alcohol intake: current details: not while substance use type: does not use History 2 Elective abortions Hx Para 1 Spontaneous abortions Hx # Term Pregnancies Ectopic pregnancies Hx # Pregnancies Multiple births # of living children 1 Past Pregnancies Del. Date Name GA/Weeks Outcome Route Bth Weight Gen Labor Lgth Anesthesia Del Locatn Provider FOB 07/24/21 Gulshan 36 live - full term Male [facility] Delivery Date: 07/24/21 Last Updated by: Geneva Pruitt PPROM [place] Visit Details Expected Delivery Route/Plan Labor Preferences- CB/BF classes: no labor support person: Chris labor intervention preferences: [] pain management options preferred: epidural cut cord/dad catch: cord : yes PP control planned: discussed discussed possible routes of delivery and associated risks: [] special requests: [] Plans Covid status: discussed Flu vaccine: discussed Tdap vaccine: given Rhogam: NA LARC form signed: yes Problem list reviewed and updated with the most current plan of care details and appropriate orders placed. Relevant counseling for the gestational age provided. Continue routine care and follow up unless otherwise noted in visit notes/problem list details OB Flowsheet Initial Weight: Not Recorded Date -?-?-?-?-?--?-?-?-?-?-?-?- EGA Weight BP Urine Prot -?-?-?-?-?-?-?-?-?-?-?-?- Glucose FHR FuHt Pres Dilation -?-?-?-?-?-?-?-?-?-?-?-?- Effaced St Visit Note 12/16/22 -?-?-?-?-?-?-?-?-?-?-?-?- 10w 2d 179 lb 2 oz 117/75 -?-?-?-?-?-?-?-?-?-?-?-?- 160 -?-?-?-?-?-?-?-?-?-?-?-?- Sm- CRL 3.3cm co ns with LMP 01/17/23 -?-?-?-?-?-?-?-?-?-?-?-?- 14w 6d 182 lb 6 oz 120/76 Trac e -?-?-?-?-?-?-?-?-?-?-?-?- Negative 160 -?-?-?-?-?-?-?-?-?-?-?-?- KW- +fm. no vb/c tx. discussed AFP. US ordered 02/13/23 -?-?-?-?-?-?-?-?-?-?-?-?- 18w 5d 185 lb 6 oz 120/76 Nega tive -?-?-?-?-?-?-?-?-?-?-?-?- Negative 149 -?-?-?-?-?-?-?-?-?-?-?-?- JV- no complaint s today had anatomy scan that was overall normal. final a/p mentioned coming back for additional views. pt states that the last time this happened it cost them $1500. They will call [facility] and ask what they need looked at and we can see if [facility] can do it 03/13/23 -?-?-?-?-?-?-?-?-?-?-?-?- 22w 5d 190 lb 6 oz 130/84 Nega tive -?-?-?-?-?-?-?-?-?-?-?-?- Negative 150 -?-?-?-?-?-?-?-?-?-?-?-?- JV- no lof, vagi nal bleeding. or cramping. no complaints. plans to do glucola at next visit. pt has decided not to do follow up with mfm. 04/07/23 -?-?-?-?-?-?-?-?-?-?-?-?- 26w 2d 196 lb 8 oz 106/69 -?-?-?-?-?-?-?-?-?-?-?-?- 138 26 -?-?-?-?-?-?-?-?-?-?-?-?- LC-no lof/vb/ctx . good fm. 28 week labs pending. 05/08/23 -?-?-?-?-?-?-?-?-?-?-?-?- 30w 5d 199 lb 4 oz 130/82 Nega tive -?-?-?-?-?-?-?-?-?-?-?-?- Negative 148 31 -?-?-?-?-?-?-?-?-?-?-?-?- MH-No VB, LOF. G ood FM. Larc, tdap 05/22/23 -?-?-?-?-?-?-?-?-?-?-?-?- 32w 5d 205 lb 120/84 Negative -?-?-?-?-?-?-?-?-?-?-?-?- Negative 141 33 -?-?-?-?-?-?-?-?-?-?-?-?- MH-No VB, LOF. G ood FM. Denies concerns 06/04/23 -?-?-?-?-?-?-?-?-?-?-?-?- 34w 4d 204 lb 8 oz 120/79 Nega tive -?-?-?-?-?-?-?-?-?-?-?-?- Negative 142 35 Cephalic -?-?-?-?-?-?-?-?-?-?-?-?- KW-no vb/lof/ctx . good fm. denies concerns 06/17/23 -?-?-?-?-?-?-?-?-?-?-?-?- 36w 3d 210 lb 2 oz 113/76 Nega tive -?-?-?-?-?-?-?-?-?-?-?-?- Negative 129 36 Cephalic 1 -?-?-?-?-?-?-?-?-?-?-?-?- 50 -2 JV- no lof , vaginal bleeding, or dec fm. gbs collected. 06/25/23 -?-?-?-?-?-?-?-?-?-?-?-?- 37w 4d 209 lb 104/76 Negative -?-?-?-?-?-?-?-?-?-?-?-?- Negative 135 37 Cephalic 2 -?-?-?-?-?-?-?-?-?-?-?-?- 70 -2 JV- no lof , vaginal bleeding, or dec fm. gbs is negative. 07/02/23 -?-?-?-?-?-?-?-?-?-?-?-?- 38w 4d 210 lb 128/84 Negative -?-?-?-?-?-?-?-?-?-?-?-?- Negative 140 38 Cephalic 2 .5 -?-?-?-?-?-?-?-?-?-?-?-?- 70 -2 JV- no lof vaginal bleeding, or dec fm. son having tonsillectomy on 07/20 and wondering if could have an elective IOL at 39 weeks. NST FHR Rate Baby A Baseline: 145 Variability:: Moderate Accelerations:: 15 x 15 Decelerations:: None NST Reactive:: Yes ROS Cardiovascular Cardiovascular: Denies abdominal pain, chest pain, diaphoresis or dyspnea Respiratory/Chest Respiratory/Chest: Denies change in mental status, chest congestion, chest tightness, cough, shortness of breath at rest, shortness of breath with exertion, breast mass, breast pain, breast skin changes, breast swelling, change in breast shape or nipple discharge Genitourinary Genitourinary: Reports change in urinary stream Musculoskeletal Musculoskeletal: Reports none Integumentary Integumentary: Reports none Neurologic Neurologic: Reports none Psychiatric Psychiatric: Reports none Endocrine Endocrinology: Reports none Hematologic/Lymphatic Hematologic/Lymphatic: Reports none Allergic/Immunologic Allergic/Immunologic: Reports none Vital Signs Vital Signs Vital Signs: 07/09/23 07:35 07/09/23 07:35 07/09/23 07:35 Temperature Temperature Source Temporal Pulse Rate 95 Blood Pressure 138/67 H BP Systolic 138 BP Diastolic 67 Pulse Ox 07/09/23 07:36 07/09/23 07:36 07/09/23 07:35 Temperature 97.6 F L Temperature Source Pulse Rate 102 H Blood Pressure BP Systolic BP Diastolic Pulse Ox 98 Weight Weight: 210 lb Body Mass Index (BMI) 34.9 Physical Exam Const alert, oriented x3 and no apparent distress General Appearance: cooperative, comfortable and well kempt Orientation / Consciousness: awake and oriented to person Exam Limitations: no limitations HEENT normocephalic Neck full ROM Chest inspection of chest normal Resp normal respiratory effort, normal air movement and no retractions Effort and Inspection: able to speak in complete sentences and symmetric chest movement Cardio regular rate Peripheral Pulses: pulses 2+ throughout GI normal to inspection, nondistended, normoactive bowel sounds Inspection: gravid no CVA tenderness and appearance of the vagina normal External Female Exam: normal appearance of the urethra; Negative for external lesion OB / External & Speculum: external exam normal Manual OB Exam: estimated gestational size appropriate and presentation cephalic Uterus Palpation: Negative for uterus tender Extremity normal to inspection Skin no rashes or lesions noted Neuro deep tendon reflexes 2+ bilaterally and gait normal Motor Exam: strength 5/5 throughout and clonus absent Psych Activity / Motor Behavior: appropriate eye contact Speech: normal speech Labs Labs Labs: Blood Type O POSITIVE Antibody Screen NEGATIVE Hct 34.2 % (37-47) L Hgb 11.4 g/dL (12.0-15.0) L Obstetrics Ultrasound Syphilis Total Ab Non-reactive Rubella IgG Antibody Reactive (Nonreactive) Hep Bs Antigen Non-Reactive (Nonreactive) Hepatitis C Antibody Non-Reactive (Nonreactive) Chlamydia DNA ([facility]SI) Negative (Negative) N.gonorrhoeae DNA ([facility]) Negative (Negative) HIV 1&2 Antibody Non-Reactive (Nonreactive) Glucose 1 Hr 50 gm 77 mg/dL (70-140) Assessment & Plan (1) Encounter for elective induction of labor: COMMENT: favorable cervix. PLAN: pitocin induction plan AROM once cervical change/consistent ctx. epidural when desires for pain management. (2) : QUALIFIERS: Weeks of gestation: 38 weeks Qualified Code(s): Z3A.38 - 38 weeks gestation of COMMENT: GBS neg, NIPT low risk, carrier and NTD screening declined, nl GCT (3) Supervision of high-risk : QUALIFIERS: Trimester: third trimester Qualified Code(s): O09.93 - Supervision of high risk , unspecified, third trimester COMMENT: [id number] SALMA 07/12/23 PC Gulshan Chris (4) History of cleft lip: COMMENT: unilateral with repair as infant, offered genetic counseling - declined. nl MFM anatomy US- limited views has fu ordered in 2 weeks which pt cancelled on 03/04 and did not reschedule PLAN: Plan Dr. Roberts updated on admission, exam and poc. agrees with iol method.
[2023-07-09 09:35] LABS: Syphilis Antibodies Non-reactive
[2023-07-09] MEDS: LACTATED RINGERS 500 ML 999 ML IV (12:24)
[2023-07-09] MEDS: fentaNYL-bupivacaine (epidural) 100 ML BAG EPIDURAL (14:01)
[2023-07-09] MEDS: Ondansetron 4 MG/2 ML Vial IV (15:34)
--- NOTE | 2023-07-09 17:02 | EX.PCM.OBRPT ---
Assessment & Plan (1) Vaginal delivery: COMMENT: LC 39weeks girl. adely (2) Encounter for elective induction of labor: COMMENT: favorable cervix. pitocin Maternal Data Information SALMA Calculator Estimated Delivery Date Method Current WG Current Estimate 07/12/23 LMP (Certain) 39w 4d Other Estimates 07/10/23 Ultrasound #1 39w 6d Final SALMA: 07/12/23 Final SALMA Source: LMP Vaginal Delivery Maternal Presentation Maternal Presentation: Elective Induction Maternal Presentation: at 39.4 presents for elective IOL. pitocin augmentation. AROMd and progressed quickly to fully dilated with urge to push Type of Induction: Pitocin Operative Information Date of Procedure: 07/09/23 Pre-Operative Diagnosis: see problem list Post-Operative Diagnosis: Surgery / Procedure Performed: Spontaneous Vaginal Delivery Type of Anesthesia: Epidural Drain: Cid to straight drain Estimated Blood Loss: 150 Time of Delivery: 16:43 Findings Description of Procedure: Patient began pushing and delivered the head in the KARAN presentation. The head was delivered atraumatically. The anterior and posterior shoulders delivered without complication followed by the rest of the and the was placed on the maternal abdomen. Delayed cord clamping was employed for approximately 5 minutes. Cord was clamped and cut and gentle traction was applied to the cord and the placenta delivered spontaneously immediately following it was noted to be intact with three-vessel cord. The perineum and vagina were inspected and noted to have no laceration. EBL was 150cc. Patient and infant tolerated delivery well, entered recovery phase bonding skin to skin. Presentation: Vertex Amniotic Membrane Rupture Type: Artificial Time of Membrane Rupture: 1447 Amniotic Fluid Description: Clear Placental Delivery Description: Spontaneous Placenta Disposition: [facility] Cord Vessel Description: 3 Vessels Cord Entanglement: None Infant A Gender: Female (1 minute): 9 (5 minute): 9 Delayed Cord Clamping: Yes Post Vaginal Delivery Medications Given After Delivery: IV Pitocin Episiotomy Description: None Laceration: None Complication Complications: None Procedures Urinary/Genital [id number]: [id number] Vaginal Delivery [facility]
[2023-07-09] MEDS: Oxytocin 15 Units/NS 250ml 15 UNITS/250 ML IV.SOLN 83 UNITS IV (17:28)
--- NOTE | 2023-07-09 19:19 | DCINST_ITS ---
Discharge Instructions Diet Discharge Diet: No restrictions Activity Discharge Activity: May Not Drive and May Shower May resume sexual activity in: 6 weeks Weight Bearing Status: Full weight bearing Dressing / Incision Call your doctor if your incision/area has: Sudden Increased Bleeding, Increased Pain/ Swelling and Foul Smelling Discharge Call your doctor if you observe: Fever of 101 or Higher, Numbness or Tingling, Change in Color, Inability to urinate, Inability to have a bowel movement, Using more than 1 pad per hour, Shortness of breath, Dizziness, Fainting spells, Chest pain, Calf discomfort and Uncontrolled pain Follow Up Care Please Follow Up With: Flory Fernández CNM When: 6 weeks , please call office to make an appointment. Congratulations on the of your baby! Test Results: Test results from this visit will be discussed in further detail at your follow- up appointment, if applicable. Discharge Plan Admission Admit Date/Time: 07/09/23 07:10 Attending Provider: Flory Fernández Primary Care Provider: Care Physician,No Primary Discharge Orders/Prescriptions Prescriptions: No Action Plus Vitamin-Mineral 27 mg iron- 1 mg tablet 1 tab PO DAILY Referrals / Follow Up: Care Physician,No Primary [Primary Care Provider] - Disposition Disposition (needs filled in before D/C Order can be placed): Home, Self Care
[2023-07-09] MEDS: Naproxen 500 MG Tablet PO (20:23)
[2023-07-10] VITALS (9 sets, daily range): BP systolic 116–126; BP diastolic 57–60; PULSE 72–97; RESP 15–17; TEMP 36.3–36.8; O2SAT 96–97
[2023-07-10] MEDS: Acetaminophen 500 MG Tablet 1000 MG PO (01:47)
[2023-07-10] MEDS: Naproxen 500 MG Tablet PO ×2 (07:52→16:48)
--- NOTE | 2023-07-10 07:59 | PN.OBGYN_ITS ---
Subjective Subjective Patient doing well without complaints. Tolerating PO. Ambulating and voiding without difficulty. Feeding well. Denies chest pain, shortness of breath, calf pain/swelling, fevers, chills, lightheadedness. Objective Data Objective Data Vital Signs: Vital Signs Temp Pulse Resp BP Pulse Ox O2 Del Method 97.4 F L 72 15 119/59 L 97 Room Air 07/10/23 04:30 07/10/23 07:37 07/10/23 04:30 07/10/23 07:37 07/10/23 04:30 07/10/23 04:30 Oxygen Delivery Method Room Air Weight: 210 lb Body Mass Index (BMI) 34.9 Intake & Output: Intake and Output for Last 24 Hours 07/08/23 07/09/23 07/10/23 23:59 23:59 23:59 Intake Total 2207.50 / 2207.50 Output Total 1150 / 1150 200 / 200 Balance 1057.50 / 1057.50 -200 / -200 Lab / Micro Data 07/09/23 07:45 Labs: Laboratory Results - last 24 hr 07/09/23 07:45: WBC 9.8, RBC 3.97 L, Hgb 11.4 L, Hct 34.2 L, MCV 86.1, MCH 28.7, MCHC 33.3, RDW Std Deviation 41.3, RDW Coeff of Candice 13.2, Plt Count 193, MPV 11.2, Immature Gran % (Auto) 0.900, Neut % (Auto) 83.0 H, Lymph % (Auto) 10.5 L, [place] % (Auto) 5.1, Eos % (Auto) 0.3, Baso % (Auto) 0.2, Absolute Neuts (auto) 8.1 H, Absolute Lymphs (auto) 1.03, Nucleated RBC % 0, Syphilis Total Ab Non- reactive, Blood Type O POSITIVE, Antibody Screen NEGATIVE Physical Exam Const alert and oriented x3 HEENT normocephalic Eyes PERRL Neck full ROM Resp normal respiratory effort GI soft to palpation GI Narrative: FF below U Assessment & Plan (1) Vaginal delivery: COMMENT: DAT 39weeks girl. adley PLAN: Plan s/p PPD # 1 1. routine post delivery care 2. breast feeding- support given 3. rh positive 4. rubella immune 5. home today
== END 2023-07-10 17:50 | disposition home or self-care (01) | DRG 560 ==
PROVIDERS: Admitting Provider Registered Nurse; Visit Provider Registered Nurse
DX: O75.89 Other specified complications of labor and delivery (principal); Z37.0 Single live birth; Z3A.39 39 weeks gestation of pregnancy; Z87.730 Personal history of (corrected) cleft lip and palate; Z87.51 Personal history of pre-term labor
CPT/HCPCS: 59025; 59050; 85025; 86780; 86850; 86900; 86901; 99221; J7120; G0378; J2405

== ENCOUNTER → 2023-08-20 | Outpatient (CLI) | payer MEDICAID, SELFPAY ==
[2023-08-27 11:08] LABS: HPV APTIMA, High Risk Positive (Negative)
== END | disposition home or self-care (01) ==
LOC: LABSPEC 15:59
PROVIDERS: Referring Provider Nurse Practitioner Women's Health; Visit Provider Nurse Practitioner Women's Health
DX: Z12.4 Encounter for screening for malignant neoplasm of cervix (principal)
CPT/HCPCS: 87624; 88175; G0145

== ENCOUNTER → 2024-12-15 | Outpatient (CLI) | payer MEDICAID, SELFPAY ==
--- OUTSIDE RECORDS SUMMARY | 2024-12-15 20:38 | XMS RPT_ITS | CCD ---
Author Organization [facility] Care Team Providers Care Floor Mechanic Name Role Phone Care Physician, No Primary Primary Care Provider Unavailable Care Physician, No Primary Referring Provider Un available Dr. Mable Wong Attending Provider 1([phone] Jese NESS, THI-Poncho Munroe Attending Provider 1(330 [phone] Dr. Stacey Barragan Attending Provider 1(330 [phone] Dr. Mable Wong Admit Provider Dr. Mable Wong Other Provider Indra SITE PROMOTION AGENT, THI-Poncho Fuller Attending Provider Care Physician, No Primary Primary Care Provider Unavailable Care Physician, No Primary Referring Provider Un available FUENTES Sawant NP Attending Provider 1(330 [phone] NO PRIMARY CARE, MD Primary Care Unavailable STACEY BARRAGAN Referring UnavailSTACEY Nicholas Attending Unavailabl e Care Physician, No Primary Primary Care Provider Unavailable Care Physician, No Primary Referring Provider Un available Dr. Stacey Barragan Attending Provider 1(330 [phone] ERIN Vera Attending Provider 1(330) Dr. Mable Wong Attending Provider 1(3 30) ERIN Fernández Attending Provider Care Physician, No Primary Primary Care Provider Unavailable Care Physician, No Primary Referring Provider Un available Dr. Mable Wong Attending Provider [phone] ERIN Fernández Attending Provider FUENTES Sawant NP Attending Provider 1(330 [phone] ERIN Vera Attending Provider [phone] Dr. Mable Wong Admit Provider Dr. Mable Wong Other Provider ERIN Fernández Admit Provider [phone] ERIN Fernández Other Provider Care Physician, No Primary Primary Care Provider Unavailable Care Physician, No Primary Referring Provider Un available Dr. Mable Wong Attending Provider [phone] ERIN Fernández Attending Provider [id number] Care Physician, No Primary Primary Care Unava ilable Care Physician, No Primary Referring Unava ilable Mobile SITE PROMOTION AGENT, Shaneka Attending Unavailable Care Physician, No Primary Referring Unava ilable Care Physician, No Primary Primary Care Unava ilable Stacey Barragan Attending Unavailable Care Physician, No Primary Referring Unava ilable Care Physician, No Primary Primary Care Unava ilable Jeanne Vera Attending Unavailable Care Physician, No Primary Primary Care Unava ilable Mable Wong Consulting Unavailabl e Mable Wong Admitting Unavailabl e Flory Fernández Attending Unavailable Care Physician, No Primary Primary Care Unava ilable Flory Fernández Attending Unavailable Flory Fernández Admitting Unavailable Care Physician, No Primary Primary Care Unava ilable Mobile SITE PROMOTION AGENT, Shaneka Referring Unavailable Mobile SITE PROMOTION AGENT, Shaneka Attending Unavailable Care Physician, No Primary Primary Care Unava ilable Jese SITE PROMOTION AGENT, Shaneka Attending Unavailable Jese SITE PROMOTION AGENT, Shaneka Referring Unavailable Care Physician, No Primary Primary Care Unava ilable Mable Wong Consulting Unavailabl e Mobile SITE PROMOTION AGENT, Shaneka Attending Unavailable Jese SITE PROMOTION AGENT, Shaneka Referring Unavailable Mable Wong Attending Unavailabl e Care Physician, No Primary Primary Care Unava ilable Care Physician, No Primary Referring Unava ilable Flory Fernández Consulting Unavailable Flory Fernández Admitting Unavailable Jese SITE PROMOTION AGENT, Shaneka Attending Unavailable Care Physician, No Primary Primary Care Unava ilable Care Physician, No Primary Referring Unava ilable Stacey Barragan Attending Unavailable Mable Wong Attending Unavailabl e Care Physician, No Primary Primary Care Unava ilable Care Physician, No Primary Referring Unava ilable Care Physician, No Primary Referring Unava ilable Mable Wong Attending Unavailabl e Care Physician, No Primary Primary Care Unava ilable Care Physician, No Primary Referring Unava ilable Care Physician, No Primary Primary Care Unava ilable Mobile SITE PROMOTION AGENT, Shaneka Attending Unavailable Care Physician, No Primary Referring Unava ilable Care Physician, No Primary Primary Care Unava ilable Jeanne Vera Attending Unavailable Care Physician, No Primary Referring Unava ilable Juliáne Mable Melendez Attending Unavailabl e Care Physician, No Primary Primary Care Unava ilable Care Physician, No Primary Primary Care Unava ilable Care Physician, No Primary Referring Unava ilable Jese SITE PROMOTION AGENT, Shaneka Attending Unavailable Care Physician, No Primary Primary Care Unava ilable Jese SITE PROMOTION AGENT, Shaneka Attending Unavailable Mobile SITE PROMOTION AGENT, Shaneka Referring Unavailable VandMable Ward Attending Unavailabl e Vande Velde, Mable Referring Unavailabl e Care Physician, No Primary Primary Care Unava ilable Care Physician, No Primary Primary Care Unava ilable Stacey Barragan Attending Unavailable MarcanthStacey ayers Referring Unavailable Vande VeldeMable Referring Unavailabl e Vande Velmelvin, Mable Attending Unavailabl e Care Physician, No Primary Primary Care Unava ilable Care Physician, No Primary Primary Care Unava ilable Juliáne VeldeMable Referring Unavailabl e Vande Velde, Mable Attending Unavailabl e Care Physician, No Primary Primary Care Unava ilable Care Physician, No Primary Referring Unava ilable Mable Wong Attending Unavailabl e Care Physician, No Primary Referring Unava ilable Flory Fernández Attending Unavailable Care Physician, No Primary Primary Care Unava ilable Care Physician, No Primary Referring Unava ilable Care Physician, No Primary Primary Care Unava ilable Jese SITE PROMOTION AGENT, Shaneka Attending Unavailable Medications Current Medications Medication Drug Class(es) Dates Sig (Normalized) Sig (Original) norethindrone 0.35 mg oral tablet (14 sources) Start: 08-20-2023 take 1 tablet by mouth once daily Norethindrone (Contraceptive) (Oumou) 0.35 mg tablet Active 0.35 MG PO daily August 20, 2023 12:00am start day 1 of menstrual cycle Start: 09-04-2021 End: 11-07-2022 take 1 tablet by mouth once daily Norethindrone (Contraceptive) (Ortho Micronor) 0.35 mg tablet Discontinued 0.35 MG PO DAILY September 18, 2022 10:52am November 07, 2022 8:30am start day 1 of menstrual cycle Prenat.Vits,Thompson,Ajg-Foam-Rbw ic (7 sources) Start: 12-19-2020 take 1 tablet by mouth once daily Prenat.Vits,Thompson,Yjn-Hoyz-Jajta Active 1 TABLET PO DAILY December 19, 2020 9:27am Start: 12-19-2020 End: 11-07-2022 take 1 tablet by mouth once daily Prenat.Vits,Thompson,Zne-Qcii-Ridnn Discontin ued 1 TABLET PO DAILY December 18, 2020 11:00pm November 07, 2022 8:17am Start: 12-19-2020 End: 11-07-2022 take 1 tablet by mouth once daily Prenat.Vits,Thompson,Mky-Wyar-Iargy Discontin ued 1 TABLET PO DAILY December 19, 2020 12:00am November 07, 2022 9:17am Vit No.953-Fyhz-Dfeys ( Plus Vitamin-Mineral) 27 mg iron- 1 mg tablet (3 sources) Start: 12-16-2022 take 1 tablet by mouth once daily Vit No.131-Hgwb-Qmehr ( Plus Vitamin-Mineral) 27 mg iron- 1 mg tablet Active 1 TABLET PO DAILY December 15, 2022 11:00pm Start: 12-16-2022 Vit N o.469-Fdqz-Emfef ( Plus Vitamin- Mineral) 27 mg iron- 1 mg tablet Active TABLET PO December 16, 2022 12:00am Completed/Discontinued Medications Medication Drug Class(es) Dates Sig (Normalized) Sig (Original) Norgestimate-Ethin yl Estradiol (6 sources) Progestin, Estrogen Start: 11-07-2022 End: 12-16-2022 take 1 tablet by mouth once daily Norgestimate-Ethiny l Estradiol (Sprintec (28)) 0.25-35 mg-mcg tablet Discontinued 1 TABLET PO daily November 06, 2022 11:00pm December 16, 2022 12:42pm Start: 11-07-2022 End: 12-16-2022 take 1 tablet by mouth once daily Norgestimate-Ethinyl Estradiol (Sprintec (28)) 0.25-35 mg-mcg tablet Discontinued 1 TABLET PO daily November 07, 2022 12:00am December 16, 2022 1:42pm Start: 11-07-2022 take 1 tablet by zuly th once daily Norgestimate-Ethinyl Estradiol (Sprintec (28)) 0.25-35 mg-mcg tablet Active 1 TABLET PO daily November 07, 2022 12:00am famotidine 20 mg oral tablet (7 sources) Histamine-2 Receptor Antagonist Start: 06-27-2021 End: 09-04-2021 take 1 tablet by mouth twice daily Famotidine (Pepcid) 20 mg tablet Discontinued 20 MG PO TWICE A DAY June 27, 2021 12:00am September 04, 2021 10:45am prochlorperazine 10 mg oral tablet (3 sources) Phenothiazine Start: 12-03-2022 End: 12-16-2022 take 1 tablet by mouth every eight hours Prochlorperazine Maleate (Compazine) 10 mg tablet Discontinued 10 MG PO Q8H December 02, 2022 11:00pm December 16, 2022 12:42pm promethazine hydrochloride 12.5 mg oral tablet (7 sources) Phenothiazine Start: 01-08-2021 End: 06-27-2021 take 12.5 mg by mouth every six hours Promethazine Discontinued 12.5 MG PO EVERY 6 HOURS January 07, 2021 11:00pm June 27, 2021 10:00am Problems Active Problems Problem Classification Problem Date Documented Date Episodic/Chronic Menstrual disorders (7 sources) Amenorrhea; Translations: [Amenorrhea, unspecified] Onset: 12-02-2022 11-08-2022 Chronic Other complications of (3 sources) High risk ; Translations: [Supervision of high risk , unspecified, unspecified trimester] 04-07-2023 Episodic Other complications of (6 sources) Supervision of high risk , unspecified, unspecified trimester; Translations: [Supervision of unspecified high-risk ] Onset: 06-20-2023 12-16-2022 Episodic Other complications of (2 sources) Supervision of high risk , unspecified, third trimester; Translations: [Supervision of high risk , unspecified, third trimester] Onset: 07-21-2023 Episodic Other congenital anomalies (7 sources) H/O: cleft lip; Translations: [Personal history of (corrected) cleft lip and palate] 03-30-2021 Episodic Other congenital anomalies (20 sources) Personal history of (corrected) cleft lip and palate; Translations: [Personal history of (corrected) congenital malformations of eye, ear, face and neck] Onset: 06-25-2023 Episodic Other and delivery including normal (20 sources) Vaginal delivery; Translations: [Encounter for full-term uncomplicated delivery] Onset: 04-11-2023 Episodic Other screening for suspected conditions (not mental disorders or infectious disease) (1 source) Encounter for screening for malignant neoplasm of cervix; Translations: [Encounter for screening for malignant neoplasm of cervix] Onset: 08-26-2023 Episodic Polyhydramnios and other problems of amniotic cavity (16 sources) Premature rupture of membranes; Translations: [Premature rupture of membranes, unspecified as to length of time between rupture and onset of labor, unspecified weeks of gestation] Episodic Residual codes; unclassified (1 source) 38 weeks gestation of ; Translations: [38 weeks gestation of ] Onset: 07-21-2023 Episodic Residual codes; unclassified (1 source) 37 weeks gestation of ; Translations: [37 weeks gestation of ] Onset: 06-25-2023 Episodic Residual codes; unclassified (1 source) 36 weeks gestation of ; Translations: [36 weeks gestation of ] Onset: 06-17-2023 Episodic Residual codes; unclassified (1 source) 34 weeks gestation of ; Translations: [34 weeks gestation of ] Onset: 06-04-2023 Episodic Past or Other Problems Problem Classification Problem Date Documented Da te Episodic/Chronic Abdominal pain (10 sources) Pain in pelvis; Translations: [Pelvic and perineal pain] Onset: 11-20-2022 11-07-2022 Episodic Immunizations and screening for infectious disease (1 source) Encounter for immunization; Translations: [Encounter for immunization] Onset: 05-08-2023 Episodic Residual codes; unclassified (1 source) 26 weeks gestation of ; Translations: [26 weeks gestation of ] Onset: 05-08-2023 Episodic Residual codes; unclassified (1 source) 22 weeks gestation of ; Translations: [22 weeks gestation of ] Onset: 03-13-2023 Episodic Residual codes; unclassified (1 source) 14 weeks gestation of ; Translations: [14 weeks gestation of ] Onset: 01-17-2023 Episodic Results Test Name Value Interpretation Reference Range Facility PAP IG HPV APTIMA 16/18,45on 08-27-2023 ADEQ Comment Normal . [facility] Comment on above: Order Comment: Speci men Comment: [id number] Comment: Source.............CervixSpecimen Comment: No. of containers..01 ThinPrep Vial Result Comment: Sati sfactory for evaluation. Endocervical and/or squamous metaplastic cells (endocervical component) are present. Performed By: #### L 7400.0280 ####[facility] [address] [place], [place], [id number] COMM . Normal . [facility] Comment on above: Order Comment: Speci men Comment: [id number] Comment: Source.............CervixSpecimen Comment: No. of containers..01 ThinPrep Vial Performed By: #### L 7400.0280 ####[facility] [address] [place], [place], [id number] COMMENT Comment Normal . [facility] Comment on above: Order Comment: Speci men Comment: [id number] Comment: Source.............CervixSpecimen Comment: No. of containers..01 ThinPrep Vial Result Comment: This liquid based ThinPrep(R) pap test was screened with the use of an image guided system. Performed By: #### L 7400.0280 ####[facility] [address] [place], [place], [id number] DIAG Comment Abnormal . [facility] Comment on above: Order Comment: Speci men Comment: [id number] Comment: Source.............CervixSpecimen Comment: No. of containers..01 ThinPrep Vial Result Comment: EPIT HELIAL CELL ABNORMALITY. ATYPICAL SQUAMOUS CELLS OF UNDETERMINED SIGNIFICANCE (ASC-US). Performed By: #### L 7400.0280 ####[facility] [address] [place], [place], [id number] HPV APTIMA, HR Positive Abnormal Negative [facility] Comment on above: Order Comment: Speci men Comment: [id number] Comment: Source.............CervixSpecimen Comment: No. of containers..01 ThinPrep Vial Result Comment: This nucleic acid amplification test detects fourteen high- risk HPV types (16,18,31,33,35,39,45,51,52,56,58,59,66,68) without differentiation. Performed By: #### L 7400.0280 ####[facility] [address] [place], [address] HPV [place] Rfx Comment Normal . [facility] Comment on above: Order Comment: Speci men Comment: [id number] Comment: Source.............CervixSpecimen Comment: No. of containers..01 ThinPrep Vial Result Comment: Crit eria not met, HPV Genotype not performed. Performed at: - [facility] [id number] Glaze Supervisor: Bella Douglas MD, Phone: [phone] Performed at: = - [facility] [id number] Glaze Supervisor: Bella Douglas MD, Phone: [phone] Performed By: #### L 7400.0280 ####[facility] [address] [place], [place], [id number] PAPSMR Comment Normal . [facility] Comment on above: Order Comment: Speci men Comment: [id number] Comment: Source.............CervixSpecimen Comment: No. of containers..01 ThinPrep Vial Result Comment: The Pap smear is a screening test designed to aid in the detection of premalignant and malignant conditions of the uterine cervix. It is not a diagnostic procedure and should not be used as the sole means of detecting cervical cancer. Both false-positive and false-negative reports do occur. Performed By: #### L 7400.0280 ####[facility] [address] [place], [place], [id number] Path.prov.IDC-9 Comment Normal . [facility] Comment on above: Order Comment: Lizzette cruz Comment: [id number] Comment: Source.............CervixSpecimen Comment: No. of containers..01 ThinPrep Vial Result Comment: [id number] Performed By: #### L 7400.0280 ####[facility] [address] [place], [place], [id number] PERFORM Comment Normal . [facility] Comment on above: Order Comment: Joaquini men Comment: [id number] Comment: Source.............CervixSpecimen Comment: No. of containers..01 ThinPrep Vial Result Comment: Terrell Avery Paper Plate Machine Tender (ASCP) Performed By: #### L 7400.0280 ####[facility] [address] [place], [place], [id number] RECOMM Comment Abnormal . [facility] Comment on above: Order Comment: Speci men Comment: [id number] Comment: Source.............CervixSpecimen Comment: No. of containers..01 ThinPrep Vial Result Comment: Sugg est follow up as clinically appropriate. Performed By: #### L 7400.0280 ####[facility] [address] [place], [address] SIGN Comment Normal . [facility] Comment on above: Order Comment: Speci men Comment: [id number] Comment: Source.............CervixSpecimen Comment: No. of containers..01 ThinPrep Vial Result Comment: Elana Douglas MD, Pathologist Performed By: #### L 7400.0280 ####[facility] [address] [place], [address] Coin Teller Office Visit Reporton 08-20-2023 Coin [facility]eller Office Visit Report [facility] [address] [place] [address] OFFICE VISIT Date of Service: 08/20/23 MR#: [id number] Acct: [id number] Name: RAYA AMANDA Rep #: [id number] : 1990 Provider: FUENTES cabrera Age/Sex: 33/F [place] [facility] [place]: [place] Intake Vital Signs 07/09/23 07:44 08/20/23 10:43 08/20/23 10:50 Height 5 ft 5 in 5 ft 5 in 5 ft 5 in Weight: 193 lb 2 oz BMI 32.1 BP 130/72 H Intake Visit Reasons: visit (obstetrics) Chief Complaint: 6 Week PP Duty Manager Required: No Is patient in pain?: No Allergies No Known Allergies Allergy (Verified 08/20/23 10:43) Medications vitamin no.180-ferrous fumarate 27 mg-folic acid 1 mg tablet ( Plus Vitamin- Mineral) 1 tab PO DAILY 12/16/22 [History Confirmed 08/20/23] norethindrone (contraceptive) 0.35 mg tablet (Oumou) 0.35 mg PO QDAY #84 tabs 08/20/23 [Rx Confirmed 08/20/23] Last Menstrual Period: 08/12/23 : [facility] History (Updated 08/20/23 @ 12:16 by Shaneka Sawant SITE PROMOTION AGENT, SITE PROMOTION AGENT-C) Encounter for elective induction of labor History of cleft lip History of pre-term labor History of premature rupture of membranes (PPROM) Prolonged rupture of membranes, delivered Supervision of high-risk Vaginal delivery Surgical History H/O bone graft H/O cleft lip repair Family History Grandfather Cancer Social History adopted: No household members: significant other current occupational status: employed current occupation: [employer] pets and animals: Yes pets and animals: dog(s) and ferret(s) Smoking Status: Never smoker alcohol intake: current details: not while substance use type: does not use History 2 Elective abortions Hx Para 2 Spontaneous abortions Hx # Term Pregnancies Ectopic pregnancies Hx # Pregnancies Multiple births # of living children 2 Past Pregnancies Del. 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 nthony 08/09/23 Blancaey 39 live - full term 7lbs 3oz Female epidural [facility] LC Chris Delivery Date: 07/24/21 Last Updated by: Geneva Pruitt PPROM [place] Delivery Date: 08/09/23 Last Updated by: Eileen Mccarty, RN see problem list for complications Depression Screen PHQ-2/9 PHQ-2 Over the last 2 weeks, how often have you been bothered by any of the following problems? 1. Little interest or pleasure in doing things: not at all 2. Feeling down, depressed, or hopeless: not at all Total score: 0 Post HPI Routine Follow-Up: Details: RAYA AMANDA is a 33 year old who presents for her post visit. Feeding: Both Menses resumed: Yes [place] since delivery: Yes (condoms) Emotional Support: Yes Last Pap:: 2020 ROS Const Reports system reviewed and no additional complaints, except as documented Eyes Reports system reviewed and no additional complaints, except as documented GI Denies abdominal pain and Denies change in bowel habits Reports as per HPI Exam Const General: cooperative, no acute distress and well developed Nutritional Appearance: average body habitus Orientation: oriented x3 Chest Chest palpation inspection: abnormal inspection of the chest Breast inspection: normal inspection of the breasts Breast palpation: normal palpation of the breasts, normal palpation of the axillae and no axillary lymphadenopathy GI Palpation: soft, no masses and nontender General: bladder normal to palpation External Female Exam: normal external appearance and normal appearance of the urethra Urethra: normal appearance of the urethra Speculum Exam - Vagina: normal appearance of the vagina and normal vaginal discharge Speculum Exam - Cervix: normal appearance of the cervix Bimanual Exam- Vagina Uterus: normal bimanual exam, uterine size normal, bladder normal to palpation, uterine shape normal, uterine mobility normal and non-tender Bimanual Exam- Adnexa, other: normal adnexae, no masses, normal and non-tender Pelvic Support: normal Coding Level of Care Code Off vis,est,level 3 Diagnoses Routine Follow-Up Z39.2 Assessment and Plan Assessment and Plan (1) Routine Follow-Up: Orders: Orders PAP IG HPV APTIMA 16/18,45 Today Medications: New norethindrone (contraceptive) (Oumou) start day 1 of menstrual cycle 0.35 mg PO QDAY 84 tabs 4RF (more content not included)... Normal [facility] Absolute lymphocyte countOrd ered By: Flory Fernández on 07-09-2023 Lymphocytes Auto (Unsp spec) [#/Vol] 1.03 10*3/uL 0.83-4.51 [facility] Basophil percentageOrdered B y: Flory Fernández on 07-09-2023 Basophils/100 WBC (Bld) 0.2 % 0-1 [facility] Eosinophils/100 WBC (Bld) 0.3 % 0-5 [facility] Neutrophils (Bld) [#/Vol] 8.1 10*3/uL 2.0-7.7 [facility] Neutrophils/100 WBC (Bld) 83.0 % 47-70 [facility] WBC (Bld) [#/Vol] 9.8 10*3/uL 4.4-11.0 [facility] Blood erythrocytes count (nu mber/volume)Ordered By: Flory Fernández on 07-09-2023 RBC (Bld) [#/Vol] 3.97 10*6/uL 4.2-5.4 [facility] Blood hemoglobin measurement (mass/volume)Ordered By: Flory Fernández on 07-09-2023 Hemoglobin (Bld) [Mass/Vol] 11.4 g/dL 12.0-15.0 [facility] Blood lymphocytes/100 leukoc ytesOrdered By: Flory Fernández on 07-09-2023 Lymphocytes/100 WBC (Bld) 10.5 % 19-41 [facility] Blood monocytes/100 leukocyt esOrdered By: Flory Fernández on 07-09-2023 Monocytes/100 WBC (Bld) 5.1 % 0-10 [facility] Blood platelet mean volumeOr dered By: Flory Fernández on 07-09-2023 Platelet mean volume (Bld) [Entitic vol] 11.2 fL 6.2-12.0 [facility] CBC W/Diff, Automatedon 06-14 Absolute Lymph 1.03 X10 3/uL Normal 0.83-4.51 [facility] Comment on above: Performed By: #### L 100.0100, BTS ####[facility] [address] [place], [address] Absolute Neut 8.1 X10 3/uL High 2.0-7.7 [facility] Comment on above: Performed By: #### L 100.0100, BTS ####[facility] [address] [place], [address] Basophils/100 WBC (Bld) 0.2 % Normal 0-1 [facility] Comment on above: Performed By: #### L 100.0100, BTS ####[facility] [address] [place], [address] Eosinophils/100 WBC (Bld) 0.3 % Normal 0-5 [facility] Comment on above: Performed By: #### L 100.0100, BTS ####[facility] [address] [place], [address] Erythrocyte distribution width (RBC) [Ratio] 13.2 % Normal 11.6-14.6 [facility] Comment on above: Performed By: #### L 100.0100, BTS ####[facility] [address] [place], [address] Hematocrit (Bld) [Volume fraction] 34.2 % Low 37-47 [facility] Comment on above: Performed By: #### L 100.0100, BTS ####[facility] [address] [place], [address] Hemoglobin (Bld) [Mass/Vol] 11.4 g/dL Low 12.0-15.0 [facility] Comment on above: Performed By: #### L 100.0100, BTS ####[facility] [address] [place], [address] IG% 0.900 Normal 0.0-0.9 [facility] Comment on above: Result Comment: IG% - Immature Granulocytes (promyelocytes, myelocytes and metamyelocytes) > 1% indicates that a LEFT SHIFT is Present. Performed By: #### L 100.0100, BTS ####[facility] [address] [place], [address] Lymphocytes/100 WBC (Bld) 10.5 % Low 19-41 [facility] Comment on above: Performed By: #### L 100.0100, BTS ####[facility] [address] [place], [address] MCH (RBC) [Entitic mass] 28.7 pg Normal 27.0-32.0 [facility] Comment on above: Performed By: #### L 100.0100, BTS ####[facility] [address] [place], [address] MCHC (RBC) [Mass/Vol] 33.3 g/dL Normal 32-36 [facility] Comment on above: Performed By: #### L 100.0100, BTS ####[facility] [address] [place], [address] MCV (RBC) [Entitic vol] 86.1 fL Normal 81-99 [facility] Comment on above: Performed By: #### L 100.0100, BTS ####[facility] [address] [place], [address] Monocytes/100 WBC (Bld) 5.1 % Normal 0-10 [facility] Comment on above: Performed By: #### L 100.0100, BTS ####[facility] [address] [place], [address] Neutrophils/100 WBC (Bld) 83.0 % High 47-70 [facility] Comment on above: Performed By: #### L 100.0100, BTS ####[facility] [address] [place], [address] Nucleated RBC (Bld) [#/Vol] 0 10*3/uL Normal 0-5 [facility] Comment on above: Performed By: #### L 100.0100, BTS ####[facility] [address] [place], [address] Platelet mean volume (Bld) [Entitic vol] 11.2 fL Normal 6.2-12.0 [facility] Comment on above: Performed By: #### L 100.0100, BTS ####[facility] [address] [place], [address] Platelets (Bld) [#/Vol] 193 10*3/uL Normal 150-450 [facility] Comment on above: Performed By: #### L 100.0100, BTS ####[facility] [address] [place], [address] RBC (Bld) [#/Vol] 3.97 10*6/uL Low 4.2-5.4 [facility] Comment on above: Performed By: #### L 100.0100, BTS ####[facility] [address] [place], [address] RDW SD 41.3 fl Normal 35.1-43.9 [facility] Comment on above: Performed By: #### L 100.0100, BTS ####[facility] [address] [place], [address] WBC (Bld) [#/Vol] 9.8 10*3/uL Normal 4.4-11.0 [facility] Comment on above: Performed By: #### L 100.0100, BTS ####[facility] [address] [place], [address] Determination of erythrocyte mean corpuscular volume (MCV)Ordered By: Flory Fernández on 07-09-2023 MCV (RBC) [Entitic vol] 86.1 fL 81-99 [facility] Discharge Instructionon 06-14 Discharge Instruction [facility] Medical Records Department [address] [place] [address] Instructions for Home/Discharge Instructions 07/09/231918 MR#: [id number] Acct: [id number] Name: RAYA AMANDA Rep #: [id number] : 1990 33 From: Flory Fernández CNM PCP: Care Physician,No Primary Status:ADM IN Discharge Instructions Diet Discharge Diet: No restrictions Activity Discharge Activity: May Not Drive and May Shower May resume sexual activity in: 6 weeks Weight Bearing Status: Full weight bearing Dressing / Incision Call your doctor if your incision/area has: Sudden Increased Bleeding, Increased Pain/ Swelling and Foul Smelling Discharge Call your doctor if you observe: Fever of 101 or Higher, Numbness or Tingling, Change in Color, Inability to urinate, Inability to have a bowel movement, Using more than 1 pad per hour, Shortness of breath, Dizziness, Fainting spells, Chest pain, Calf discomfort and Uncontrolled pain Follow Up Care Please Follow Up With: Flory Fernández CNM When: 6 weeks , please call office to make an appointment. Congratulations on the of your baby! Test Results: Test results from this visit will be discussed in further detail at your follow-up appointment, if applicable. Discharge Plan Admission Admit Date/Time: 07/09/23 07:10 Attending Provider: Flory Fernández Primary Care Provider: Care Physician,Rina Primary Discharge Orders/Prescriptions Prescriptions: No Action Plus Vitamin-Mineral 27 mg iron- 1 mg tablet 1 tab PO DAILY Referrals / Follow Up: Care Physician,No Primary [Primary Care Provider] - Disposition Disposition (needs filled in before D/C Order can be placed): Home, Self Care 07/09/231918 Flory Fernández CNM CC: No Primary Care Physician Signed Normal [facility] H AND P Exam - OB/GYNon 06-14 H&P Exam - [facility] Medical Records Department [address] [place] [address] H P Exam - [facility] 07/09/23 0838 MR#: [id number] Acct: [id number] Name: RAYA AMANDA Rep #: [id number] : 1990 33 From: Flory Fernández CNM PCP: Care Physician,No Primary Status:ADM IN Location: [id number] [facility] - General General Date of Admission: 07/09/23 HPI Narrative RAYA AMANDA, is a 33 F who presents for elective IOL. at 39+4. uncomplicated course. good fm. no consistent ctx, lof or vb. Maternal Data Information SALMA Calculator Estimated Delivery Date Method Current WG Current Estimate 07/12/23 LMP (Certain) 39w 4d Other Estimates 07/10/23 Ultrasound #1 39w 6d PFSH PFSH Medical History (Updated 07/09/23 @ 08:43 by Flory Fernández CNM) History of cleft lip History of pre-term labor History of premature rupture of membranes (PPROM) Prolonged rupture of membranes, delivered Home Medications vitamin no.180-ferrous fumarate 27 mg-folic acid 1 mg tablet ( Plus Vitamin- Mineral) 1 tab PO DAILY 12/16/22 [History Last Taken 07/08/23 08:00] Allergy/AdvReac Type Severity Reaction Status Date / Time No Known Allergies Allergy Verified 07/09/23 07:42 Family History Grandfather Cancer Surgical History H/O bone graft H/O cleft lip repair Social History adopted: No household members: significant other current occupational status: employed current occupation: [employer] pets and animals: Yes pets and animals: dog(s) and ferret(s) Smoking Status: Never smoker alcohol intake: current details: not while substance use type: does not use History 2 Elective abortions Hx Para 1 Spontaneous abortions Hx # Term Pregnancies Ectopic pregnancies Hx # Pregnancies Multiple births # of living children 1 Past Pregnancies Del. 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 Delivery Date: 07/24/21 Last Updated by: Geneva Pruitt PPROM [facility] Visit Details Expected Delivery Route/Plan Labor Preferences- CB/BF classes: no labor support person: Chris labor intervention preferences: [] pain management options preferred: epidural cut cord/dad catch: cord : yes PP control planned: discussed discussed possible routes of delivery and associated risks: [] special requests: [] Plans Covid status: discussed Flu vaccine: discussed Tdap vaccine: given Rhogam: NA LARC form signed: yes Problem list reviewed and updated with the most current plan of care details and appropriate orders placed. Relevant counseling for the gestational age provided. Continue routine care and follow up unless otherwise noted in visit notes/problem list details OB Flowsheet Initial Weight: Not Recorded Date -???-???-???-???-??? -???-???-???-???-??? -???-???- EGA Weight BP Urine Prot -???-???-???-???-??? -???-???-???-???-??? -???-???- Glucose FHR FuHt Pres Dilation -???-???-???-???-??? -???-???-???-???-??? -???-???- Effaced St Visit Note 12/16/22 -???-???-???-???-??? -???-???-???-???-??? -???-???- 10w 2d 179 lb 2 oz 117/75 -???-???-???-???-??? -???-???-???-???-??? -???-???- 160 -???-???-???-???-??? -???-???-???-???-??? -???-???- Sm- CRL 3.3c m cons with LMP 01/17/23 -???-???-???-???-??? -???-???-???-???-??? -???-???- 14w 6d 182 lb 6 oz 120/76 Trace -???-???-???-???-??? -???-???-???-???-??? -???-???- Negative 160 -???-???-???-???-??? -???-???-???-???-??? -???-???- KW- +fm. no vb/ctx. discussed AFP. US ordered 02/13/23 -???-???-???-???-??? -???-???-???-???-??? -???-???- 18w 5d 185 lb 6 oz 120/76 Negative -???-???-???-???-??? -???-???-???-???-??? -???-???- Negative 149 -???-???-???-???-??? -???-???-???-???-??? -???-???- JV- no compl aints today had anatomy scan that was overall normal. final a/p mentioned coming back for additional views. pt states that the last time this happened it cost them $1500. They will call mfm and ask what they need looked at and we can see if [facility] can do it 03/13/23 -???-???-???-???-??? -???-???-???-???-??? -???-???- 22w 5d 190 lb 6 oz 130/84 Negative -???-???-???-???-??? -???-???-???-???-??? -???-???- Negative 150 -???-???-???-???-??? -???-???-???-???-??? -???-???- JV- no lof, vaginal bleeding. or cramping. no complaints. plans to do glucola at next visit. pt has decided not to do follow up with mfm. 04/07/23 -???-???-???-???-??? -???-???-???-???-??? -???-???- 26w 2d 196 lb 8 o (more content not included)... Normal [facility] Hematocrit Auto (Bld) [Volum e fraction]Ordered By: Flory Fernández on 07-09-2023 Hematocrit (Bld) [Volume fraction] 34.2 % 37-47 [facility] L509.8000on 07-09-2023 Syphilis Abs Non-Reactive Normal [facility] Comment on above: Performed By: #### L 509.8000 #### [facility] [address] [place], [address] Laboratory - Hematology and Cell countsOrdered By: Flory Fernández on 07-09-2023 Erythrocyte distribution width (RBC) [Entitic vol] 41.3 fL 35.1-43.9 [facility] Erythrocyte distribution width (RBC) [Ratio] 13.2 % 11.6-14.6 [facility] Immature granulocytes/100 WBC (Bld) 0.900 % 0.0-0.9 [facility] Comment on above: IG% - Immature Granu locytes (promyelocytes, myelocytes and metamyelocytes) > 1% indicates that a LEFT SHIFT is Present. MCH (RBC) [Entitic mass] 28.7 pg 27.0-32.0 [facility] Nucleated RBC/100 WBC (Bld) [Ratio] 0 % 0-5 [facility] MCHC Auto (RBC) [Mass/Vol]Or dered By: Flory Fernández on 07-09-2023 MCHC (RBC) [Mass/Vol] 33.3 g/dL 32-36 [facility] Operative Reporton 3 Operative Report [facility] Medical Records Department [address] [place] [address] Operative Report 07/09/23 1702 MR#: [id number] Acct: [id number] Name: RAYA AMANDA Rep #: [id number] : 1990 33 From: Flory Fernández CNM PCP: Care Physician,No Primary Status:ADM IN Location: [id number] Assessment Plan (1) Vaginal delivery: COMMENT: LC 39weeks girl. adely (2) Encounter for elective induction of labor: COMMENT: favorable cervix. pitocin Maternal Data Information SALMA Calculator Estimated Delivery Date Method Current WG Current Estimate 07/12/23 LMP (Certain) 39w 4d Other Estimates 07/10/23 Ultrasound #1 39w 6d Final SALMA: 07/12/23 Final SALMA Source: LMP Vaginal Delivery Maternal Presentation Maternal Presentation: Elective Induction Maternal Presentation: at 39.4 presents for elective IOL. pitocin augmentation. AROMd and progressed quickly to fully dilated with urge to push Type of Induction: Pitocin Operative Information Date of Procedure: 07/09/23 Pre-Operative Diagnosis: see problem list Post-Operative Diagnosis: Surgery / Procedure Performed: Spontaneous Vaginal Delivery Type of Anesthesia: Epidural Drain: Cid to straight drain Estimated Blood Loss: 150 Time of Delivery: 16:43 Findings Description of Procedure: Patient began pushing and delivered the head in the KARAN presentation. The head was delivered atraumatically. The anterior and posterior shoulders delivered without complication followed by the rest of the and the was placed on the maternal abdomen. Delayed cord clamping was employed for approximately 5 minutes. Cord was clamped and cut and gentle traction was applied to the cord and the placenta delivered spontaneously immediately following it was noted to be intact with three-vessel cord. The perineum and vagina were inspected and noted to have no laceration. EBL was 150cc. Patient and tolerated delivery well, entered recovery phase bonding skin to skin. Presentation: Vertex Amniotic Membrane Rupture Type: Artificial Time of Membrane Rupture: 1447 Amniotic Fluid Description: Clear Placental Delivery Description: Spontaneous Placenta Disposition: [facility] Cord Vessel Description: 3 Vessels Cord Entanglement: None A Gender: Female (1 minute): 9 (5 minute): 9 Delayed Cord Clamping: Yes Post Vaginal Delivery Medications Given After Delivery: IV Pitocin Episiotomy Description: None Laceration: None Complication Complications: None Procedures Urinary/Genital 52xxx-59xxx: [id number] Vaginal Delivery [facility] 07/09/23 1717 Cosigner Signature (if applicable): CC: ERIN Fernández; No Primary Care Physician Signed Normal [facility] Platelets bldOrdered By: Jessica Fernández on 07-09-2023 Platelets (Bld) [#/Vol] 193 10*3/uL 150-450 [facility] Serum Treponema species anti body detectionOrdered By: Flory Fernández on 07-09-2023 Treponema sp Ab Ql (S) Non-Reactive [facility] Type AND Screenon 07-09-2023 ABO and Rh group Nom (Bld) Blood group O Rh(D) positive Normal [facility] Comment on above: Order Comment: Labor Performed By: #### L 100.0100, BTS ####[facility] [address] [place], [address] Laboratory - Chemistry and C hemistry - challengeon 07-02-2023 Glucose Ql (U) Negative [facility] - Urinalysison Protein Ql (U) Negative [facility] Office Visit Reporton 07-02-2023 [facility] Office Visit Report [facility] [address] [place] [address] OFFICE VISIT Date of Service: 07/02/23 MR#: [id number] Acct: [id number] Name: RAYA AMANDA Rep #: [id number] : 1990 Provider: Dr. Mable Abrams DO Age/Sex: 33/F [place] [facility] [place]: Signed Intake Vital Signs 05/08/23 10:40 06/25/23 09:47 07/02/23 09:37 07/02/23 09:38 Height 5 ft 5 in 5 ft 5 in 5 ft 5 in 5 ft 5 in Weight: 210 lb BMI 34.9 BP 128/84 H Intake Visit Reasons: 38 WK OB Duty Manager Required: No Is patient in pain?: No Allergies No Known Allergies Allergy (Verified 07/02/23 09:37) Medications vitamin no.180-ferrous fumarate 27 mg-folic acid 1 mg tablet ( Plus Vitamin- Mineral) tab PO 12/16/22 [History Confirmed 07/02/23] Last Menstrual Period: 10/06/22 Zika: Zika virus screening: Negative : No PFSH PFSH Medical History History of cleft lip Surgical History H/O bone graft H/O cleft lip repair Family History Grandfather Cancer Social History adopted: No household members: significant other current occupational status: employed current occupation: [employer] pets and animals: Yes pets and animals: dog(s) and ferret(s) Smoking Status: Never smoker alcohol intake: current details: not while substance use type: does not use History 2 Elective abortions Hx Para 1 Spontaneous abortions Hx # Term Pregnancies Ectopic pregnancies Hx # Pregnancies Multiple births # of living children 1 Past Pregnancies Del. Date Name GA/Weeks Outcome Route Bth Weight Gen Labor Lgth Anesthesia Del Locatn Provider FOB 07/24/21 Gulshan 36 live - full term Male [facility] Jaclyn painter Delivery Date: 07/24/21 Last Updated by: Geneva Pruitt PPROM [facility] HPI 38 WK OB Details: RAYA AMANDA is a 33 year old who presents for routine OB visit. OB Visit SALMA Calculator Estimated Delivery Date Method Current WG Current Estimate 07/12/23 LMP (Certain) 38w 4d Other Estimates 07/10/23 Ultrasound #1 38w 6d Expected Delivery Route/Plan Labor Preferences- CB/BF classes: no labor support person: Chris labor intervention preferences: [] pain management options preferred: epidural cut cord/dad catch: cord : yes PP control planned: discussed discussed possible routes of delivery and associated risks: [] special requests: [] Specific Issue/Plans Covid status: discussed Flu vaccine: discussed Tdap vaccine: given Rhogam: NA LARC form signed: yes Problem list reviewed and updated with the most current plan of care details and appropriate orders placed. Relevant counseling for the gestational age provided. Continue routine care and follow up unless otherwise noted in visit notes/problem list details Initial Weight: Not Recorded Date -???-???-???-???-??? -???-???-???-???-??? -???-???- EGA Weight BP Urine Prot -???-???-???-???-??? -???-???-???-???-??? -???-???- Glucose FHR FuHt Pres Dilation -???-???-???-???-??? -???-???-???-???-??? -???-???- Effaced St Visit Note 12/16/22 -???-???-???-???-??? -???-???-???-???-??? -???-???- 10w 2d 179 lb 2 oz 117/75 -???-???-???-???-??? -???-???-???-???-??? -???-???- 160 -???-???-???-???-??? -???-???-???-???-??? -???-???- Sm- CRL 3.3c m cons with LMP 01/17/23 -???-???-???-???-??? -???-???-???-???-??? -???-???- 14w 6d 182 lb 6 oz 120/76 Trace -???-???-???-???-??? -???-???-???-???-??? -???-???- Negative 160 -???-???-???-???-??? -???-???-???-???-??? -???-???- KW- +fm. no vb/ctx. discussed AFP. US ordered 02/13/23 -???-???-???-???-??? -???-???-???-???-??? -???-???- 18w 5d 185 lb 6 oz 120/76 Negative -???-???-???-???-??? -???-???-???-???-??? -???-???- Negative 149 -???-???-???-???-??? -???-???-???-???-??? -???-???- JV- no compl aints today had anatomy scan that was overall normal. final a/p mentioned coming back for additional views. pt states that the last time this happened it cost them $1500. They will call mfm and ask what they need looked at and we can see if [facility] can do it 03/13/23 -???-???-???-???-??? -???-???-???-???-??? -???-???- 22w 5d 190 lb 6 oz 130/84 Negative -???-???-???-???-??? -???-???-???-???-??? -???-???- Negative 150 -???-???-???-???-??? -???-???-???-???-??? -???-???- JV- no lof, vaginal bleeding. or cramping. no complaints. plans to do glucola at next visit. pt has decided not to do follow up with mfm. 04/07/23 -???-???-???-???-??? -???-???-? (more content not included)... Normal [facility] Laboratory - Chemistry and C hemistry - challengeon 06-25-2023 Glucose Ql (U) Negative [facility] - Urinalysison Protein Ql (U) Negative [facility] Office Visit Reporton 06-25-2023 Coin Teller Office Visit Report [facility] [address] [place] [address] OFFICE VISIT Date of Service: 06/25/23 MR#: [id number] Acct: [id number] Name: TREASURERAYA MANDIE Rep #: [id number] : 1990 Provider: Dr. Mable Abrams, DO Age/Sex: 33/F [place] [facility] [place]: Signed Intake Vital Signs 05/08/23 10:40 06/17/23 09:40 06/25/23 09:45 06/25/23 09:47 Height 5 ft 5 in 5 ft 5 in 5 ft 5 in 5 ft 5 in Weight: 209 lb BMI 34.7 BP 104/76 Intake Visit Reasons: 37 WK OB Duty Manager Required: No Is patient in pain?: No Allergies No Known Allergies Allergy (Verified 06/25/23 09:46) Medications vitamin no.180-ferrous fumarate 27 mg-folic acid 1 mg tablet ( Plus Vitamin- Mineral) tab PO 12/16/22 [History Confirmed 06/25/23] Last Menstrual Period: 10/06/22 Zika: Zika virus screening: Negative : No PFSH PFSH Medical History History of cleft lip Surgical History H/O bone graft H/O cleft lip repair Family History Grandfather Cancer Social History adopted: No household members: significant other current occupational status: employed current occupation: [employer] pets and animals: Yes pets and animals: dog(s) and ferret(s) Smoking Status: Never smoker alcohol intake: current details: not while substance use type: does not use History 2 Elective abortions Hx Para 1 Spontaneous abortions Hx # Term Pregnancies Ectopic pregnancies Hx # Pregnancies Multiple births # of living children 1 Past Pregnancies Del. 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 mickieshawn Delivery Date: 07/24/21 Last Updated by: Geneva Pruitt PPROM Chorio HPI 37 WK OB Details: RAYA AMANDA is a 33 year old who presents for routine OB visit. OB Visit SALMA Calculator Estimated Delivery Date Method Current WG Current Estimate 07/12/23 LMP (Certain) 37w 4d Other Estimates 07/10/23 Ultrasound #1 37w 6d Expected Delivery Route/Plan Labor Preferences- CB/BF classes: no labor support person: Chris labor intervention preferences: [] pain management options preferred: epidural cut cord/dad catch: cord : yes PP control planned: discussed discussed possible routes of delivery and associated risks: [] special requests: [] Specific Issue/Plans Covid status: discussed Flu vaccine: discussed Tdap vaccine: given Rhogam: NA LARC form signed: yes Problem list reviewed and updated with the most current plan of care details and appropriate orders placed. Relevant counseling for the gestational age provided. Continue routine care and follow up unless otherwise noted in visit notes/problem list details Initial Weight: Not Recorded Date -???-???-???-???-??? -???-???-???-???-??? -???-???- EGA Weight BP Urine Prot -???-???-???-???-??? -???-???-???-???-??? -???-???- Glucose FHR FuHt Pres Dilation -???-???-???-???-??? -???-???-???-???-??? -???-???- Effaced St Visit Note 12/16/22 -???-???-???-???-??? -???-???-???-???-??? -???-???- 10w 2d 179 lb 2 oz 117/75 -???-???-???-???-??? -???-???-???-???-??? -???-???- 160 -???-???-???-???-??? -???-???-???-???-??? -???-???- Sm- CRL 3.3c m cons with LMP 01/17/23 -???-???-???-???-??? -???-???-???-???-??? -???-???- 14w 6d 182 lb 6 oz 120/76 Trace -???-???-???-???-??? -???-???-???-???-??? -???-???- Negative 160 -???-???-???-???-??? -???-???-???-???-??? -???-???- KW- +fm. no vb/ctx. discussed AFP. US ordered 02/13/23 -???-???-???-???-??? -???-???-???-???-??? -???-???- 18w 5d 185 lb 6 oz 120/76 Negative -???-???-???-???-??? -???-???-???-???-??? -???-???- Negative 149 -???-???-???-???-??? -???-???-???-???-??? -???-???- JV- no compl aints today had anatomy scan that was overall normal. final a/p mentioned coming back for additional views. pt states that the last time this happened it cost them $1500. They will call [facility] and ask what they need looked at and we can see if [facility] can do it 03/13/23 -???-???-???-???-??? -???-???-???-???-??? -???-???- 22w 5d 190 lb 6 oz 130/84 Negative -???-???-???-???-??? -???-???-???-???-??? -???-???- Negative 150 -???-???-???-???-??? -???-???-???-???-??? -???-???- JV- no lof, vaginal bleeding. or cramping. no complaints. plans to do glucola at next visit. pt has decided not to do follow up with mfm. 04/07/23 -???-???-???-???-??? -???-???-???-???-??? -???-??? (more content not included)... Normal [facility] Rule out Beta Strep (Grp. B) on 06-19-2023 [facility] B Beta Streptococcus is not isolated. Normal [facility] Comment on above: Performed By: #### M 100.3400 #### [facility] [address] [place], [address] Laboratory - Chemistry and C hemistry - challengeon 06-17-2023 Glucose Ql (U) Negative [facility] - Urinalysison Protein Ql (U) Negative [facility] No Panel InformationOrdered By: Mable Melendez on 06-17-2023 Group B Streptococcus Culture Group B Beta Streptococcus is not isolated. [facility] Office Visit Reporton 06-17-2023 Coin Teller Office Visit Report [facility] [address] [place] [address] OFFICE VISIT Date of Service: 06/17/23 MR#: [id number] Acct: [id number] Name: TREASURERAYA MANDIE Rep #: [id number] : 1990 Provider: Dr. Mable Abrams DO Age/Sex: 33/F Location: [facility] [place] Status: Signed Intake Vital Signs 05/08/23 10:40 06/04/23 09:40 06/17/23 09:39 06/17/23 09:40 Height 5 ft 5 in 5 ft 5 in 5 ft 5 in 5 ft 5 in Weight: 210 lb 2 oz BMI 34.9 BP 113/76 Intake Visit Reasons: 36 WK OB Duty Manager Required: No Is patient in pain?: No Allergies No Known Allergies Allergy (Verified 06/17/23 09:39) Medications vitamin no.180-ferrous fumarate 27 mg-folic acid 1 mg tablet ( Plus Vitamin- Mineral) tab PO 12/16/22 [History Confirmed 06/17/23] Last Menstrual Period: 10/06/22 Zika: Zika virus screening: Negative : No PFSH PFSH Medical History History of cleft lip Surgical History H/O bone graft H/O cleft lip repair Family History Grandfather Cancer Social History adopted: No household members: significant other current occupational status: employed current occupation: [employer] pets and animals: Yes pets and animals: dog(s) and ferret(s) Smoking Status: Never smoker alcohol intake: current details: not while substance use type: does not use History 2 Elective abortions Hx Para 1 Spontaneous abortions Hx # Term Pregnancies Ectopic pregnancies Hx # Pregnancies Multiple births # of living children 1 Past Pregnancies Del. Date Name GA/Weeks Outcome Route Bth Weight Gen Labor Lgth Anesthesia Del Locatn Provider FOB 07/24/21 Gulshan 36 live - full term Male [facility] Jaclyn painter Delivery Date: 07/24/21 Last Updated by: Geneva Pruitt PPROM Chorio HPI 36 WK OB Details: RAYA AMANDA is a 33 year old who presents for routine OB visit. OB Visit SALMA Calculator Estimated Delivery Date Method Current WG Current Estimate 07/12/23 LMP (Certain) 36w 3d Other Estimates 07/10/23 Ultrasound #1 36w 5d Expected Delivery Route/Plan Labor Preferences- CB/BF classes: no labor support person: Chris labor intervention preferences: [] pain management options preferred: epidural cut cord/dad catch: cord : yes PP control planned: discussed discussed possible routes of delivery and associated risks: [] special requests: [] Specific Issue/Plans Covid status: discussed Flu vaccine: discussed Tdap vaccine: given Rhogam: NA LARC form signed: yes Problem list reviewed and updated with the most current plan of care details and appropriate orders placed. Relevant counseling for the gestational age provided. Continue routine care and follow up unless otherwise noted in visit notes/problem list details Initial Weight: Not Recorded Date -???-???-???-???-??? -???-???-???-???-??? -???-???- EGA Weight BP Urine Prot -???-???-???-???-??? -???-???-???-???-??? -???-???- Glucose FHR FuHt Pres Dilation -???-???-???-???-??? -???-???-???-???-??? -???-???- Effaced St Visit Note 12/16/22 -???-???-???-???-??? -???-???-???-???-??? -???-???- 10w 2d 179 lb 2 oz 117/75 -???-???-???-???-??? -???-???-???-???-??? -???-???- 160 -???-???-???-???-??? -???-???-???-???-??? -???-???- Sm- CRL 3.3c m cons with LMP 01/17/23 -???-???-???-???-??? -???-???-???-???-??? -???-???- 14w 6d 182 lb 6 oz 120/76 Trace -???-???-???-???-??? -???-???-???-???-??? -???-???- Negative 160 -???-???-???-???-??? -???-???-???-???-??? -???-???- KW- +fm. no vb/ctx. discussed AFP. US ordered 02/13/23 -???-???-???-???-??? -???-???-???-???-??? -???-???- 18w 5d 185 lb 6 oz 120/76 Negative -???-???-???-???-??? -???-???-???-???-??? -???-???- Negative 149 -???-???-???-???-??? -???-???-???-???-??? -???-???- JV- no compl aints today had anatomy scan that was overall normal. final a/p mentioned coming back for additional views. pt states that the last time this happened it cost them $1500. They will call mf and ask what they need looked at and we can see if [facility] can do it 03/13/23 -???-???-???-???-??? -???-???-???-???-??? -???-???- 22w 5d 190 lb 6 oz 130/84 Negative -???-???-???-???-??? -???-???-???-???-??? -???-???- Negative 150 -???-???-???-???-??? -???-???-???-???-??? -???-???- JV- no lof, vaginal bleeding. or cramping. no complaints. plans to do glucola at next visit. pt has decided not to do follow up with mfm. 04/07/23 -???-???-???-???-??? -???-?? (more content not included)... Normal [facility] - Chemistry and C hemistry - challengeon 06-04-2023 Glucose Ql (U) Negative [facility] - Urinalysison Protein Ql (U) Negative [facility] Office Visit Reporton 06-04-2023 [facility] Office Visit Report [facility] [address] [place] [address] OFFICE VISIT Date of Service: 06/04/23 MR#: [id number] Acct: [id number] Name: RAYA AMANDA Rep #: [id number] : 1990 Provider: ERIN Rojas ams Age/Sex: 33/F [place] [facility] [place]: Signed Intake Vital Signs 05/08/23 10:40 05/22/23 09:23 06/04/23 09:39 06/04/23 09:40 Height 5 ft 5 in 5 ft 5 in 5 ft 5 in 5 ft 5 in Weight: 204 lb 8 oz BMI 34.0 BP 120/79 Intake Visit Reasons: 34 WK OB Duty Manager Required: No Is patient in pain?: No Allergies No Known Allergies Allergy (Verified 06/04/23 09:40) Medications vitamin no.180-ferrous fumarate 27 mg-folic acid 1 mg tablet ( Plus Vitamin- Mineral) tab PO 12/16/22 [History Confirmed 06/04/23] Last Menstrual Period: 10/06/22 Zika: Zika virus screening: Negative : No PFSH PFSH Medical History History of cleft lip Surgical History H/O bone graft H/O cleft lip repair Family History Grandfather Cancer Social History adopted: No household members: significant other current occupational status: employed current occupation: [employer] pets and animals: Yes pets and animals: dog(s) and ferret(s) Smoking Status: Never smoker alcohol intake: current details: not while substance use type: does not use History 2 Elective abortions Hx Para 1 Spontaneous abortions Hx # Term Pregnancies Ectopic pregnancies Hx # Pregnancies Multiple births # of living children 1 Past Pregnancies Del. 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 Delivery Date: 07/24/21 Last Updated by: Geneva Pruitt PPROM Chorio HPI 34 WK OB Details: RAYA AMANDA is a 33 year old who presents for routine OB visit. OB Visit SALMA Calculator Estimated Delivery Date Method Current WG Current Estimate 07/12/23 LMP (Certain) 34w 4d Other Estimates 07/10/23 Ultrasound #1 34w 6d Expected Delivery Route/Plan Labor Preferences- CB/BF classes: no labor support person: Chris labor intervention preferences: [] pain management options preferred: epidural cut cord/dad catch: cord : yes PP control planned: discussed discussed possible routes of delivery and associated risks: [] special requests: [] Specific Issue/Plans Covid status: discussed Flu vaccine: discussed Tdap vaccine: given Rhogam: NA LARC form signed: yes Problem list reviewed and updated with the most current plan of care details and appropriate orders placed. Relevant counseling for the gestational age provided. Continue routine care and follow up unless otherwise noted in visit notes/problem list details Initial Weight: Not Recorded Date -???-???-???-???-??? -???-???-???-???-??? -???-???- EGA Weight BP Urine Prot -???-???-???-???-??? -???-???-???-???-??? -???-???- Glucose FHR FuHt Pres Dilation -???-???-???-???-??? -???-???-???-???-??? -???-???- Effaced St Visit Note 12/16/22 -???-???-???-???-??? -???-???-???-???-??? -???-???- 10w 2d 179 lb 2 oz 117/75 -???-???-???-???-??? -???-???-???-???-??? -???-???- 160 -???-???-???-???-??? -???-???-???-???-??? -???-???- Sm- CRL 3.3c m cons with LMP 01/17/23 -???-???-???-???-??? -???-???-???-???-??? -???-???- 14w 6d 182 lb 6 oz 120/76 Trace -???-???-???-???-??? -???-???-???-???-??? -???-???- Negative 160 -???-???-???-???-??? -???-???-???-???-??? -???-???- KW- +fm. no vb/ctx. discussed AFP. US ordered 02/13/23 -???-???-???-???-??? -???-???-???-???-??? -???-???- 18w 5d 185 lb 6 oz 120/76 Negative -???-???-???-???-??? -???-???-???-???-??? -???-???- Negative 149 -???-???-???-???-??? -???-???-???-???-??? -???-???- JV- no compl aints today had anatomy scan that was overall normal. final a/p mentioned coming back for additional views. pt states that the last time this happened it cost them $1500. They will call mfm and ask what they need looked at and we can see if [facility] can do it 03/13/23 -???-???-???-???-??? -???-???-???-???-??? -???-???- 22w 5d 190 lb 6 oz 130/84 Negative -???-???-???-???-??? -???-???-???-???-??? -???-???- Negative 150 -???-???-???-???-??? -???-???-???-???-??? -???-???- JV- no lof, vaginal bleeding. or cramping. no complaints. plans to do glucola at next visit. pt has decided not to do follow up with mfm. 04/07/23 -???-???-???-???-??? -???-???-???- (more content not included)... Normal [facility] - Chemistry and C hemistry - challengeon 05-22-2023 Glucose Ql (U) Negative [facility] - Urinalysison Protein Ql (U) Negative [facility] Office Visit Reporton 05-22-2023 Coin Teller Office Visit Report [facility] [address] [place] [address] OFFICE VISIT Date of Service: 05/22/23 MR#: [id number] Acct: [id number] Name: RAYA AMANDA Rep #: [id number] : 1990 Provider: FUENTES cabrera Age/Sex: 32/F Location: [facility] [place] Status: Signed Intake Vital Signs 05/08/23 10:40 05/22/23 09:23 Height 5 ft 5 in 5 ft 5 in Weight: 205 lb BMI 34.1 BP 120/84 H Intake Visit Reasons: 32 WK OB Chief Complaint: 32 Week OB Duty Manager Required: No Is patient in pain?: No Allergies No Known Allergies Allergy (Verified 05/22/23 09:23) Medications vitamin no.180-ferrous fumarate 27 mg-folic acid 1 mg tablet ( Plus Vitamin- Mineral) tab PO 12/16/22 [History Confirmed 05/22/23] Last Menstrual Period: 10/06/22 Zika: Zika virus screening: Negative : No PFSH PFSH Medical History History of cleft lip Surgical History H/O bone graft H/O cleft lip repair Family History Grandfather Cancer Social History adopted: No household members: significant other current occupational status: employed current occupation: [employer] pets and animals: Yes pets and animals: dog(s) and ferret(s) Smoking Status: Never smoker alcohol intake: current details: not while substance use type: does not use History 2 Elective abortions Hx Para 1 Spontaneous abortions Hx # Term Pregnancies Ectopic pregnancies Hx # Pregnancies Multiple births # of living children 1 Past Pregnancies Del. 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 ntshalininy Delivery Date: 07/24/21 Last Updated by: Geneva Pruitt PPROM Chorio HPI 32 WK OB Details: RAYA AMANDA is a 32 year old who presents for routine OB visit. OB Visit SALMA Calculator Estimated Delivery Date Method Current WG Current Estimate 07/12/23 LMP (Certain) 32w 5d Other Estimates 07/10/23 Ultrasound #1 33w 0d Expected Delivery Route/Plan Labor Preferences- CB/BF classes: no labor support person: Chris labor intervention preferences: [] pain management options preferred: epidural cut cord/dad catch: cord : yes PP control planned: discussed discussed possible routes of delivery and associated risks: [] special requests: [] Specific Issue/Plans Covid status: discussed Flu vaccine: discussed Tdap vaccine: given Rhogam: NA LARC form signed: yes Problem list reviewed and updated with the most current plan of care details and appropriate orders placed. Relevant counseling for the gestational age provided. Continue routine care and follow up unless otherwise noted in visit notes/problem list details Initial Weight: Not Recorded Date -???-???-???-???-??? -???-???-???-???-??? -???-???- EGA Weight BP Urine Prot -???-???-???-???-??? -???-???-???-???-??? -???-???- Glucose FHR FuHt Pres Dilation -???-???-???-???-??? -???-???-???-???-??? -???-???- Effaced St Visit Note 12/16/22 -???-???-???-???-??? -???-???-???-???-??? -???-???- 10w 2d 179 lb 2 oz 117/75 -???-???-???-???-??? -???-???-???-???-??? -???-???- 160 -???-???-???-???-??? -???-???-???-???-??? -???-???- Sm- CRL 3.3c m cons with LMP 01/17/23 -???-???-???-???-??? -???-???-???-???-??? -???-???- 14w 6d 182 lb 6 oz 120/76 Trace -???-???-???-???-??? -???-???-???-???-??? -???-???- Negative 160 -???-???-???-???-??? -???-???-???-???-??? -???-???- KW- +fm. no vb/ctx. discussed AFP. US ordered 02/13/23 -???-???-???-???-??? -???-???-???-???-??? -???-???- 18w 5d 185 lb 6 oz 120/76 Negative -???-???-???-???-??? -???-???-???-???-??? -???-???- Negative 149 -???-???-???-???-??? -???-???-???-???-??? -???-???- JV- no compl aints today had anatomy scan that was overall normal. final a/p mentioned coming back for additional views. pt states that the last time this happened it cost them $1500. They will call mf and ask what they need looked at and we can see if [facility] can do it 03/13/23 -???-???-???-???-??? -???-???-???-???-??? -???-???- 22w 5d 190 lb 6 oz 130/84 Negative -???-???-???-???-??? -???-???-???-???-??? -???-???- Negative 150 -???-???-???-???-??? -???-???-???-???-??? -???-???- JV- no lof, vaginal bleeding. or cramping. no complaints. plans to do glucola at next visit. pt has decided not to do follow up with mfm. 04/07/23 -???-???-???-???-??? -???-???-???-???-??? -???-???- 26w 2d (more content not included)... Normal [facility] - Chemistry and C hemistry - challengeon 05-08-2023 Glucose Ql (U) Negative [facility] - Urinalysison Protein Ql (U) Negative [facility] Coin Teller Office Visit Reporton 05-08-2023 Coin Teller Office Visit Report [facility] [address] [place] [address]. [address] [place] [address] OFFICE VISIT Date of Service: 05/08/23 MR#: [id number] Acct: [id number] Name: RAYA AMANDA Rep #: [id number] : 1990 Provider: FUENTES cabrera Age/Sex: 32/F [place] [facility] [place] Signed Intake Vital Signs 04/07/23 10:48 05/08/23 10:40 Height 5 ft 5 in 5 ft 5 in Weight: 199 lb 4 oz BMI 33.1 BP 130/82 H Intake Visit Reasons: 30 WK OB Chief Complaint: 30 Week OB Duty Manager Required: No Is patient in pain?: No Allergies No Known Allergies Allergy (Verified 05/08/23 10:39) Medications vitamin no.180-ferrous fumarate 27 mg-folic acid 1 mg tablet ( Plus Vitamin- Mineral) tab PO 12/16/22 [History Confirmed 05/08/23] Last Menstrual Period: 10/06/22 Zika: Zika virus screening: Negative : No PFSH PFSH Medical History History of cleft lip Surgical History H/O bone graft H/O cleft lip repair Family History Grandfather Cancer Social History adopted: No household members: significant other current occupational status: employed current occupation: [employer] pets and animals: Yes pets and animals: dog(s) and ferret(s) Smoking Status: Never smoker alcohol intake: current details: not while substance use type: does not use History 2 Elective abortions Hx Para 1 Spontaneous abortions Hx # Term Pregnancies Ectopic pregnancies Hx # Pregnancies Multiple births # of living children 1 Past Pregnancies Del. 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 nthoshawn Delivery Date: 07/24/21 Last Updated by: Geneva Pruitt PPROM Chorio HPI 30 WK OB Details: RAYA AMANDA is a 32 year old who presents for routine OB visit. OB Visit SALMA Calculator Estimated Delivery Date Method Current WG Current Estimate 07/12/23 LMP (Certain) 30w 5d Other Estimates 07/10/23 Ultrasound #1 31w 0d Expected Delivery Route/Plan Labor Preferences- CB/BF classes: no labor support person: Chris labor intervention preferences: [] pain management options preferred: epidural cut cord/dad catch: cord : yes PP control planned: discussed discussed possible routes of delivery and associated risks: [] special requests: [] Specific Issue/Plans Covid status: discussed Flu vaccine: discussed Tdap vaccine: given Rhogam: NA LARC form signed: yes Problem list reviewed and updated with the most current plan of care details and appropriate orders placed. Relevant counseling for the gestational age provided. Continue routine care and follow up unless otherwise noted in visit notes/problem list details Initial Weight: Not Recorded Date -???-???-???-???-??? -???-???-???-???-??? -???-???- EGA Weight BP Urine Prot -???-???-???-???-??? -???-???-???-???-??? -???-???- Glucose FHR FuHt Pres Dilation -???-???-???-???-??? -???-???-???-???-??? -???-???- Effaced St Visit Note 12/16/22 -???-???-???-???-??? -???-???-???-???-??? -???-???- 10w 2d 179 lb 2 oz 117/75 -???-???-???-???-??? -???-???-???-???-??? -???-???- 160 -???-???-???-???-??? -???-???-???-???-??? -???-???- Sm- CRL 3.3c m cons with LMP 01/17/23 -???-???-???-???-??? -???-???-???-???-??? -???-???- 14w 6d 182 lb 6 oz 120/76 Trace -???-???-???-???-??? -???-???-???-???-??? -???-???- Negative 160 -???-???-???-???-??? -???-???-???-???-??? -???-???- KW- +fm. no vb/ctx. discussed AFP. US ordered 02/13/23 -???-???-???-???-??? -???-???-???-???-??? -???-???- 18w 5d 185 lb 6 oz 120/76 Negative -???-???-???-???-??? -???-???-???-???-??? -???-???- Negative 149 -???-???-???-???-??? -???-???-???-???-??? -???-???- JV- no compl aints today had anatomy scan that was overall normal. final a/p mentioned coming back for additional views. pt states that the last time this happened it cost them $1500. They will call mfm and ask what they need looked at and we can see if [facility] can do it 03/13/23 -???-???-???-???-??? -???-???-???-???-??? -???-???- 22w 5d 190 lb 6 oz 130/84 Negative -???-???-???-???-??? -???-???-???-???-??? -???-???- Negative 150 -???-???-???-???-??? -???-???-???-???-??? -???-???- JV- no lof, vaginal bleeding. or cramping. no complaints. plans to do glucola at next visit. pt has decided not to do follow up with mfm. 04/07/23 -???-???-???-???-??? -???-???-???-???-??? -???-???- 26 (more content not included)... Normal [facility] Absolute lymphocyte countOrd ered By: Mable Melendez on 04-07-2023 Lymphocytes Auto (Unsp spec) [#/Vol] 1.18 10*3/uL 0.83-4.51 [facility] Basophil percentageOrdered B y: Mable Melendez on 04-07-2023 Basophils/100 WBC (Bld) 0.3 % 0-1 [facility] Eosinophils/100 WBC (Bld) 0.6 % 0-5 [facility] Neutrophils (Bld) [#/Vol] 6.2 10*3/uL 2.0-7.7 [facility] Neutrophils/100 WBC (Bld) 76.8 % 47-70 [facility] WBC (Bld) [#/Vol] 8.0 10*3/uL 4.4-11.0 [facility] Blood erythrocytes count (nu mber/volume)Ordered By: Mable Melendez on 04-07-2023 RBC (Bld) [#/Vol] 3.91 10*6/uL 4.2-5.4 [facility] Blood hemoglobin measurement (mass/volume)Ordered By: Mable Melendez on 04-07-2023 Hemoglobin (Bld) [Mass/Vol] 12.0 g/dL 12.0-15.0 [facility] Blood lymphocytes/100 leukoc ytesOrdered By: Mable Melendez on 04-07-2023 Lymphocytes/100 WBC (Bld) 14.8 % 19-41 [facility] Blood monocytes/100 leukocyt esOrdered By: Mable Melendez on 04-07-2023 Monocytes/100 WBC (Bld) 6.6 % 0-10 [facility] Blood platelet mean volumeOr dered By: Mable Melendez on 04-07-2023 Platelet mean volume (Bld) [Entitic vol] 10.5 fL 6.2-12.0 [facility] CBC W/Diff, Automatedon 03-15 Absolute Lymph 1.18 X10 3/uL Normal 0.83-4.51 [facility] Comment on above: Performed By: #### L 100.0100, L509.8000, L3890.6005, L501.0250 ####[facility] [address] [place], [address] Absolute Neut 6.2 X10 3/uL Normal 2.0-7.7 [facility] Comment on above: Performed By: #### L 100.0100, L509.8000, L3890.6005, L501.0250 ####[facility] [address] [place], [address] Basophils/100 WBC (Bld) 0.3 % Normal 0-1 [facility] Comment on above: Performed By: #### L 100.0100, L509.8000, L3890.6005, L501.0250 ####[facility] [address] [place], [address] Eosinophils/100 WBC (Bld) 0.6 % Normal 0-5 [facility] Comment on above: Performed By: #### L 100.0100, L509.8000, L3890.6005, L501.0250 ####[facility] [address] [place], [address] Erythrocyte distribution width (RBC) [Ratio] 12.7 % Normal 11.6-14.6 [facility] Comment on above: Performed By: #### L 100.0100, L509.8000, L3890.6005, L501.0250 ####[facility] [address] [place], [address] Hematocrit (Bld) [Volume fraction] 35.9 % Low 37-47 [facility] Comment on above: Performed By: #### L 100.0100, L509.8000, L3890.6005, L501.0250 ####[facility] [address] [place], [address] Hemoglobin (Bld) [Mass/Vol] 12.0 g/dL Normal 12.0-15.0 [facility] Comment on above: Performed By: #### L 100.0100, L509.8000, L3890.6005, L501.0250 ####[facility] [address] [place], [address] IG% 0.900 Normal 0.0-0.9 [facility] Comment on above: Result Comment: IG% - Immature Granulocytes (promyelocytes, myelocytes and metamyelocytes) > 1% indicates that a LEFT SHIFT is Present. Performed By: #### L 100.0100, L509.8000, L3890.6005, L501.0250 ####[facility] [address] [place], [address] Lymphocytes/100 WBC (Bld) 14.8 % Low 19-41 [facility] Comment on above: Performed By: #### L 100.0100, L509.8000, L3890.6005, L501.0250 ####[facility] [address] [place], [address] MCH (RBC) [Entitic mass] 30.7 pg Normal 27.0-32.0 [facility] Comment on above: Performed By: #### L 100.0100, L509.8000, L3890.6005, L501.0250 ####[facility] [address] [place], [address] MCHC (RBC) [Mass/Vol] 33.4 g/dL Normal 32-36 [facility] Comment on above: Performed By: #### L 100.0100, L509.8000, L3890.6005, L501.0250 ####[facility] [address] [place], [address] MCV (RBC) [Entitic vol] 91.8 fL Normal 81-99 [facility] Comment on above: Performed By: #### L 100.0100, L509.8000, L3890.6005, L501.0250 ####[facility] [address] [place], [address] Monocytes/100 WBC (Bld) 6.6 % Normal 0-10 [facility] Comment on above: Performed By: #### L 100.0100, L509.8000, L3890.6005, L501.0250 ####[facility] [address] [place], [address] Neutrophils/100 WBC (Bld) 76.8 % High 47-70 [facility] Comment on above: Performed By: #### L 100.0100, L509.8000, L3890.6005, L501.0250 ####[facility] [address] [place], [address] Nucleated RBC (Bld) [#/Vol] 0 10*3/uL Normal 0-5 [facility] Comment on above: Performed By: #### L 100.0100, L509.8000, L3890.6005, L501.0250 ####[facility] [address] [place], [address] Platelet mean volume (Bld) [Entitic vol] 10.5 fL Normal 6.2-12.0 [facility] Comment on above: Performed By: #### L 100.0100, L509.8000, L3890.6005, L501.0250 ####[facility] [address] [place], [address] Platelets (Bld) [#/Vol] 194 10*3/uL Normal 150-450 [facility] Comment on above: Performed By: #### L 100.0100, L509.8000, L3890.6005, L501.0250 ####[facility] [address] [place], [address] RBC (Bld) [#/Vol] 3.91 10*6/uL Low 4.2-5.4 [facility] Comment on above: Performed By: #### L 100.0100, L509.8000, L3890.6005, L501.0250 ####[facility] [address] [place], [address] RDW SD 41.7 fl Normal 35.1-43.9 [facility] Comment on above: Performed By: #### L 100.0100, L509.8000, L3890.6005, L501.0250 ####[facility] [address] [place], [address] WBC (Bld) [#/Vol] 8.0 10*3/uL Normal 4.4-11.0 [facility] Comment on above: Performed By: #### L 100.0100, L509.8000, L3890.6005, L501.0250 ####[facility] [address] [place], [place], [id number] Determination of erythrocyte mean corpuscular volume (MCV)Ordered By: Mable Melendez on 04-07-2023 MCV (RBC) [Entitic vol] 91.8 fL 81-99 [facility] Gestational diabetes screen 1-hour screen with 50g oral glucose loadOrdered By: Mable Melendez on 04-07-2023 Glucose 1 Hr post 50 g glucose PO [Mass/Vol] 77 mg/dL 70-140 [facility] Glucose Challenge Gest 1H 50 awais 04-07-2023 GLU GEST 50g 1H 77 mg/dL Normal 70-140 [facility] Comment on above: Performed By: #### L 100.0100, L509.8000, L3890.6005, L501.0250 ####[facility] [address] [place], [address] HIV - WCHon 04-07-2023 HIV Non-Reactive Normal Nonreactive [facility] Comment on above: Performed By: #### L 100.0100, L509.8000, L3890.6005, L501.0250 ####[facility] [address] [place], [address] HIV 1 and HIV-2 antibody ass ay with HIV-1 p24 antigen detectionOrdered By: Mable Melendez on 04-07-2023 HIV 1+2 Ab+HIV1 p24 Ag IA Ql Non-Reactive Nonreactive [facility] Hematocrit Auto (Bld) [Volum e fraction]Ordered By: Mable Melendez on 04-07-2023 Hematocrit (Bld) [Volume fraction] 35.9 % 37-47 [facility] L509.8000on 04-07-2023 Syphilis Abs Non-Reactive Normal [facility] Comment on above: Performed By: #### L 100.0100, L509.8000, L3890.6005, L501.0250 ####[facility] [address] [place], [address] Laboratory - Hematology and Cell countsOrdered By: Mable Melendez on 04-07-2023 Erythrocyte distribution width (RBC) [Entitic vol] 41.7 fL 35.1-43.9 [facility] Erythrocyte distribution width (RBC) [Ratio] 12.7 % 11.6-14.6 [facility] Immature granulocytes/100 WBC (Bld) 0.900 % 0.0-0.9 [facility] Comment on above: IG% - Immature Granu locytes (promyelocytes, myelocytes and metamyelocytes) > 1% indicates that a LEFT SHIFT is Present. MCH (RBC) [Entitic mass] 30.7 pg 27.0-32.0 [facility] Nucleated RBC/100 WBC (Bld) [Ratio] 0 % 0-5 [facility] MCHC Auto (RBC) [Mass/Vol]Or dered By: Mable Melendez on 04-07-2023 MCHC (RBC) [Mass/Vol] 33.4 g/dL 32-36 [facility] Coin Teller Office Visit Reporton 04-07-2023 Coin Teller Office Visit Report [facility] [address] [place], [place] [address] OFFICE VISIT Date of Service: 04/07/23 MR#: [id number] Acct: [id number] Name: RAYA AMANDA Rep #: [id number] : 1990 Provider: ERIN claudio Age/Sex: 32/F [place] [facility] [place]: Signed Intake Vital Signs 03/13/23 11:34 04/07/23 10:45 04/07/23 10:48 Height 5 ft 5 in 5 ft 5 in 5 ft 5 in Weight: 196 lb 8 oz BMI 32.7 BP 106/69 Intake Visit Reasons: 26 WK OB / GLUCOSE Duty Manager Required: No Is patient in pain?: No Allergies No Known Allergies Allergy (Verified 04/07/23 10:47) Medications vitamin no.180-ferrous fumarate 27 mg-folic acid 1 mg tablet ( Plus Vitamin- Mineral) tab PO 12/16/22 [History Confirmed 04/07/23] Last Menstrual Period: 10/06/22 Zika: Zika virus screening: Negative : No PFSH PFSH Medical History History of cleft lip Surgical History H/O bone graft H/O cleft lip repair Family History Grandfather Cancer Social History adopted: No household members: significant other current occupational status: employed current occupation: [employer] pets and animals: Yes pets and animals: dog(s) and ferret(s) Smoking Status: Never smoker alcohol intake: current details: not while substance use type: does not use History 2 Elective abortions Hx Para 1 Spontaneous abortions Hx # Term Pregnancies Ectopic pregnancies Hx # Pregnancies Multiple births # of living children 1 Past Pregnancies Del. 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 nthony Delivery Date: 07/24/21 Last Updated by: Geneva Pruitt PPROM Chorio HPI 26 WK OB / GLUCOSE Details: RAYA AMANDA is a 32 year old who presents for routine OB visit. OB Visit SALMA Calculator Estimated Delivery Date Method Current WG Current Estimate 07/12/23 LMP (Certain) 26w 2d Other Estimates 07/10/23 Ultrasound #1 26w 4d Expected Delivery Route/Plan Labor Preferences- CB/BF classes: [] labor support person: [] labor intervention preferences: [] pain management options preferred: [] cut cord/dad catch: [] : [] PP control planned: [] discussed possible routes of delivery and associated risks: [] special requests: [] Specific Issue/Plans Covid status: discussed Flu vaccine: discussed Tdap vaccine: [] Rhogam: [] LARC form signed: [] Problem list reviewed and updated with the most current plan of care details and appropriate orders placed. Relevant counseling for the gestational age provided. Continue routine care and follow up unless otherwise noted in visit notes/problem list details Initial Weight: Not Recorded Date -???-???-???-???-??? -???-???-???-???-??? -???-???- EGA Weight BP Urine Prot -???-???-???-???-??? -???-???-???-???-??? -???-???- Glucose FHR FuHt Pres Dilation -???-???-???-???-??? -???-???-???-???-??? -???-???- Effaced St Visit Note 12/16/22 -???-???-???-???-??? -???-???-???-???-??? -???-???- 10w 2d 179 lb 2 oz 117/75 -???-???-???-???-??? -???-???-???-???-??? -???-???- 160 -???-???-???-???-??? -???-???-???-???-??? -???-???- Sm- CRL 3.3c m cons with LMP 01/17/23 -???-???-???-???-??? -???-???-???-???-??? -???-???- 14w 6d 182 lb 6 oz 120/76 Trace -???-???-???-???-??? -???-???-???-???-??? -???-???- Negative 160 -???-???-???-???-??? -???-???-???-???-??? -???-???- KW- +fm. no vb/ctx. discussed AFP. US ordered 02/13/23 -???-???-???-???-??? -???-???-???-???-??? -???-???- 18w 5d 185 lb 6 oz 120/76 Negative -???-???-???-???-??? -???-???-???-???-??? -???-???- Negative 149 -???-???-???-???-??? -???-???-???-???-??? -???-???- JV- no compl aints today had anatomy scan that was overall normal. final a/p mentioned coming back for additional views. pt states that the last time this happened it cost them $1500. They will call [facility] and ask what they need looked at and we can see if [facility] can do it 03/13/23 -???-???-???-???-??? -???-???-???-???-??? -???-???- 22w 5d 190 lb 6 oz 130/84 Negative -???-???-???-???-??? -???-???-???-???-??? -???-???- Negative 150 -???-???-???-???-??? -???-???-???-???-??? -???-???- JV- no lof, vaginal bleeding. or cramping. no complaints. plans to do glucola at next visit. pt has decided not to do follow up with [facility]fm. 04/07/23 -???-???-???-???-??? -???-???-???-???-??? -???-???- 26w 2d 19 (more content not included)... Normal [facility] Platelets bldOrdered By: Sarah Melendez on 04-07-2023 Platelets (Bld) [#/Vol] 194 10*3/uL 150-450 [facility] Serum Treponema species anti body detectionOrdered By: Mable Melendez on 04-07-2023 Treponema sp Ab Ql (S) Non-Reactive [facility] - Chemistry and C hemistry - challengeon 03-13-2023 Glucose Ql (U) Negative [facility] - Urinalysison Protein Ql (U) Negative [facility] Coin Teller Office Visit Reporton 03-13-2023 Coin Teller Office Visit Report [facility] [address] [place], [place] [address] OFFICE VISIT Date of Service: 03/13/23 MR#: [id number] Acct: [id number] Name: RAYA AMANDA Rep #: [id number] : 1990 Provider: Dr. Mable Abrams DO Age/Sex: 32/F Location: [facility] [place] Status: Signed Intake Vital Signs 02/13/23 09:34 03/13/23 11:34 Height 5 ft 5 in 5 ft 5 in Weight: 190 lb 6 oz BMI 31.6 BP 130/84 H Intake Visit Reasons: 22 WK OB Chief Complaint: 22 Week OB Duty Manager Required: No Is patient in pain?: No Allergies No Known Allergies Allergy (Verified 03/13/23 11:32) Medications vitamin no.180-ferrous fumarate 27 mg-folic acid 1 mg tablet ( Plus Vitamin- Mineral) tab PO 12/16/22 [History Confirmed 03/13/23] Last Menstrual Period: 10/06/22 Zika: Zika virus screening: Negative : No PFSH PFSH Medical History History of cleft lip Surgical History H/O bone graft H/O cleft lip repair Family History Grandfather Cancer Social History adopted: No household members: significant other current occupational status: employed current occupation: [employer] pets and animals: Yes pets and animals: dog(s) and ferret(s) Smoking Status: Never smoker alcohol intake: current details: not while substance use type: does not use History 2 Elective abortions Hx Para 1 Spontaneous abortions Hx # Term Pregnancies Ectopic pregnancies Hx # Pregnancies Multiple births # of living children 1 Past Pregnancies Del. 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 OB Visit SALMA Calculator Estimated Delivery Date Method Current WG Current Estimate 07/12/23 LMP (Certain) 22w 5d Other Estimates 07/10/23 Ultrasound #1 23w 0d Expected Delivery Route/Plan Labor Preferences- CB/BF classes: [] labor support person: [] labor intervention preferences: [] pain management options preferred: [] cut cord/dad catch: [] : [] PP control planned: [] discussed possible routes of delivery and associated risks: [] special requests: [] Specific Issue/Plans Covid status: discussed Flu vaccine: discussed Tdap vaccine: [] Rhogam: [] LARC form signed: [] Problem list reviewed and updated with the most current plan of care details and appropriate orders placed. Relevant counseling for the gestational age provided. Continue routine care and follow up unless otherwise noted in visit notes/problem list details Initial Weight: Not Recorded Date -???-???-???-???-??? -???-???-???-???-??? -???-???- EGA Weight BP Urine Prot -???-???-???-???-??? -???-???-???-???-??? -???-???- Glucose FHR FuHt Pres Dilation -???-???-???-???-??? -???-???-???-???-??? -???-???- Effaced St Visit Note 12/16/22 -???-???-???-???-??? -???-???-???-???-??? -???-???- 10w 2d 179 lb 2 oz 117/75 -???-???-???-???-??? -???-???-???-???-??? -???-???- 160 -???-???-???-???-??? -???-???-???-???-??? -???-???- Sm- CRL 3.3c m cons with LMP 01/17/23 -???-???-???-???-??? -???-???-???-???-??? -???-???- 14w 6d 182 lb 6 oz 120/76 Trace -???-???-???-???-??? -???-???-???-???-??? -???-???- Negative 160 -???-???-???-???-??? -???-???-???-???-??? -???-???- KW- +fm. no vb/ctx. discussed AFP. US ordered 02/13/23 -???-???-???-???-??? -???-???-???-???-??? -???-???- 18w 5d 185 lb 6 oz 120/76 Negative -???-???-???-???-??? -???-???-???-???-??? -???-???- Negative 149 -???-???-???-???-??? -???-???-???-???-??? -???-???- JV- no compl aints today had anatomy scan that was overall normal. final a/p mentioned coming back for additional views. pt states that the last time this happened it cost them $1500. They will call [facility] and ask what they need looked at and we can see if [facility] can do it 03/13/23 -???-???-???-???-??? -???-???-???-???-??? -???-???- 22w 5d 190 lb 6 oz 130/84 Negative -???-???-???-???-??? -???-???-???-???-??? -???-???- Negative 150 -???-???-???-???-??? -???-???-???-???-??? -???-???- JV- no lof, vaginal bleeding. or cramping. no complaints. plans to do glucola at next visit. pt has decided not to do follow up with mfm. ACOG First Trimester First Trimester: Desire for , Alcohol, T (more content not included)... Normal [facility] - Chemistry and C hemistry - challengeon 02-13-2023 Glucose Ql (U) Negative [facility] - Urinalysison Protein Ql (U) Negative [facility] Coin Teller Office Visit Reporton 02-13-2023 Coin Teller Office Visit Report [facility] [address] [place] [address] OFFICE VISIT Date of Service: 02/13/23 MR#: [id number] Acct: [id number] Name: RAYA MAANDA Rep #: [id number] : 1990 Provider: Dr. Mable Abrams DO Age/Sex: 32/F [place] [facility] [place]: Signed Intake Vital Signs 01/17/23 10:09 02/13/23 09:33 02/13/23 09:34 Height 5 ft 5 in 5 ft 5 in 5 ft 5 in Weight: 185 lb 6 oz BMI 30.8 BP 120/76 Intake Visit Reasons: 18 WK OB Duty Manager Required: No Is patient in pain?: No Allergies No Known Allergies Allergy (Verified 02/13/23 09:32) Medications vitamin no.180-ferrous fumarate 27 mg-folic acid 1 mg tablet ( Plus Vitamin- Mineral) tab PO 12/16/22 [History Confirmed 02/13/23] Last Menstrual Period: 10/06/22 Zika: Zika virus screening: Negative : No PFSH PFSH Medical History History of cleft lip Surgical History H/O bone graft H/O cleft lip repair Family History Grandfather Cancer Social History adopted: No household members: significant other current occupational status: employed current occupation: [employer] pets and animals: Yes pets and animals: dog(s) and ferret(s) Smoking Status: Never smoker alcohol intake: current details: not while substance use type: does not use History 2 Elective abortions Hx Para 1 Spontaneous abortions Hx # Term Pregnancies Ectopic pregnancies Hx # Pregnancies Multiple births # of living children 1 Past Pregnancies Del. 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 OB Visit SALMA Calculator Estimated Delivery Date Method Current WG Current Estimate 07/12/23 LMP (Certain) 18w 5d Other Estimates 07/10/23 Ultrasound #1 19w 0d Expected Delivery Route/Plan Labor Preferences- CB/BF classes: [] labor support person: [] labor intervention preferences: [] pain management options preferred: [] cut cord/dad catch: [] : [] PP control planned: [] discussed possible routes of delivery and associated risks: [] special requests: [] Specific Issue/Plans Covid status: discussed Flu vaccine: discussed Tdap vaccine: [] Rhogam: [] LARC form signed: [] Problem list reviewed and updated with the most current plan of care details and appropriate orders placed. Relevant counseling for the gestational age provided. Continue routine care and follow up unless otherwise noted in visit notes/problem list details Initial Weight: Not Recorded Date -???-???-???-???-??? -???-???-???-???-??? -???-???- EGA Weight BP Urine Prot -???-???-???-???-??? -???-???-???-???-??? -???-???- Glucose FHR FuHt Pres Dilation -???-???-???-???-??? -???-???-???-???-??? -???-???- Effaced St Visit Note 12/16/22 -???-???-???-???-??? -???-???-???-???-??? -???-???- 10w 2d 179 lb 2 oz 117/75 -???-???-???-???-??? -???-???-???-???-??? -???-???- 160 -???-???-???-???-??? -???-???-???-???-??? -???-???- Sm- CRL 3.3c m cons with LMP 01/17/23 -???-???-???-???-??? -???-???-???-???-??? -???-???- 14w 6d 182 lb 6 oz 120/76 Trace -???-???-???-???-??? -???-???-???-???-??? -???-???- Negative 160 -???-???-???-???-??? -???-???-???-???-??? -???-???- KW- +fm. no vb/ctx. discussed AFP. US ordered 02/13/23 -???-???-???-???-??? -???-???-???-???-??? -???-???- 18w 5d 185 lb 6 oz 120/76 Negative -???-???-???-???-??? -???-???-???-???-??? -???-???- Negative 149 -???-???-???-???-??? -???-???-???-???-??? -???-???- JV- no compl aints today had anatomy scan that was overall normal. final a/p mentioned coming back for additional views. pt states that the last time this happened it cost them $1500. They will call [facility] and ask what they need looked at and we can see if [facility] can do it ACOG First Trimester First Trimester: Desire for , Alcohol, Tobacco Cessation, Illicit/Recreational Drug/Substance Use, Intimate Partner Violence, Barriers to care, Unstable Housing, Communication Barriers, Environmental/Work Hazards, Anticipated Course of Care, Toxoplasmosis Precations, Use of Any medications, Sexual activity, Exercise, Dental Care, Sauna/Hot tub use, Seat Belt use, Childbirth classes/Hospital facil (more content not included)... Normal [facility] - Chemistry and C hemistry - challengeon 01-17-2023 Glucose Ql (U) Negative [facility] - Urinalysison Protein Ql (U) Trace [facility] Coin Teller Office Visit Reporton 01-17-2023 Coin Teller Office Visit Report [facility] [address] [place] [address] OFFICE VISIT Date of Service: 01/17/23 MR#: [id number] Acct: [id number] Name: RAYA AMANDA Rep #: [id number] : 1990 Provider: ERIN Rojas ams Age/Sex: 32/F [place] [facility] [place]: Signed Intake Vital Signs 12/16/22 13:41 01/17/23 10:09 Height 5 ft 5 in 5 ft 5 in Weight: 182 lb 6 oz BMI 30.3 BP 120/76 Intake Visit Reasons: 14 WK OB Duty Manager Required: No Is patient in pain?: No Allergies No Known Allergies Allergy (Verified 01/17/23 10:06) Medications vitamin no.180-ferrous fumarate 27 mg-folic acid 1 mg tablet ( Plus Vitamin- Mineral) tab PO 12/16/22 [History Confirmed 01/17/23] Last Menstrual Period: 10/06/22 Zika: Zika virus screening: Negative [facility] Medical History History of cleft lip Surgical History H/O bone graft H/O cleft lip repair Family History Grandfather Cancer Social History adopted: No household members: significant other current occupational status: employed current occupation: [employer] pets and animals: Yes pets and animals: dog(s) and ferret(s) Smoking Status: Never smoker alcohol intake: current details: not while substance use type: does not use History 2 Elective abortions Hx Para 1 Spontaneous abortions Hx # Term Pregnancies Ectopic pregnancies Hx # Pregnancies Multiple births # of living children 1 Past Pregnancies Del. 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 OB Visit SALMA Calculator Estimated Delivery Date Method Current WG Current Estimate 07/12/23 LMP (Certain) 14w 6d Other Estimates 07/10/23 Ultrasound #1 15w 1d Expected Delivery Route/Plan Labor Preferences- CB/BF classes: [] labor support person: [] labor intervention preferences: [] pain management options preferred: [] cut cord/dad catch: [] : [] PP control planned: [] discussed possible routes of delivery and associated risks: [] special requests: [] Specific Issue/Plans Covid status: discussed Flu vaccine: discussed Tdap vaccine: [] Rhogam: [] LARC form signed: [] Problem list reviewed and updated with the most current plan of care details and appropriate orders placed. Relevant counseling for the gestational age provided. Continue routine care and follow up unless otherwise noted in visit notes/problem list details Initial Weight: Not Recorded Date -???-???-???-???-??? -???-???-???-???-??? -???-???- EGA Weight BP Urine Prot -???-???-???-???-??? -???-???-???-???-??? -???-???- Glucose FHR FuHt Pres Dilation -???-???-???-???-??? -???-???-???-???-??? -???-???- Effaced St Visit Note 12/16/22 -???-???-???-???-??? -???-???-???-???-??? -???-???- 10w 2d 179 lb 2 oz 117/75 -???-???-???-???-??? -???-???-???-???-??? -???-???- 160 -???-???-???-???-??? -???-???-???-???-??? -???-???- Sm- CRL 3.3c m cons with LMP 01/17/23 -???-???-???-???-??? -???-???-???-???-??? -???-???- 14w 6d 182 lb 6 oz 120/76 Trace -???-???-???-???-??? -???-???-???-???-??? -???-???- Negative 160 -???-???-???-???-??? -???-???-???-???-??? -???-???- KW- +fm. no vb/ctx. discussed AFP. US ordered ACOG First Trimester First Trimester: Desire for , Alcohol, Tobacco Cessation, Illicit/Recreational Drug/Substance Use, Intimate Partner Violence, Barriers to care, Unstable Housing, Communication Barriers, Environmental/Work Hazards, Anticipated Course of Care, Toxoplasmosis Precations, Use of Any medications, Sexual activity, Exercise, Dental Care, Sauna/Hot tub use, Seat Belt use, Childbirth classes/Hospital facilities, Travel, Indications for Ultrasound and Screening for Aneuploidy; Discussed Second Trimester Second Trimester: Signs and Symptoms of Labor, Selecting a care provider, Reproductive Life Planning Contreception, Care Planning, Depression/Anxiety and Intimate Partner Violence; Discussed Tobacco Cessation Third Trimester Third Trimester: Pain Management Plans, Labor support person(s), Immediate Larc, Circumcision preference, Feeding No and Family Medical Leave or Disability For (more content not included)... Normal [facility] Chlamydia/GC VAMSI aptimaon CHLAMY,NUC ACID Negative Normal Negative [facility] Comment on above: Performed By: #### L 7000.1800, M1.0 ####[facility] [address] [place], [place], [id number] GC BY NUC ACID Negative Normal Negative [facility] Comment on above: Result Comment: Perf ormed at: =G - [facility] [address] [id number] Glaze Supervisor: Bella Douglas MD, Phone: [phone] Performed By: #### L 7000.1800, ####[facility] [address] [place], [address] Urine Cultureon 12-18-2022 [facility] Mixed Gram Positive Organisms [place] Count 1000-10,000 MIXC Mixed contaminants. Submit a new specimen if indicated. [facility] Comment on above: Performed By: #### L 7000.1800, M100.2200 ####[facility] [address] [place], [address] Absolute lymphocyte countOrd ered By: Stacey Barragan on 12-16-2022 Lymphocytes Auto (Unsp spec) [#/Vol] 1.98 10*3/uL 0.83-4.51 [facility] Basophil percentageOrdered B y: Stacey Barragan on 12-16-2022 Basophils/100 WBC (Bld) 0.4 % 0-1 [facility] Eosinophils/100 WBC (Bld) 0.5 % 0-5 [facility] Neutrophils (Bld) [#/Vol] 5.1 10*3/uL 2.0-7.7 [facility] Neutrophils/100 WBC (Bld) 67.0 % 47-70 [facility] WBC (Bld) [#/Vol] 7.6 10*3/uL 4.4-11.0 [facility] Blood erythrocytes count (nu mber/volume)Ordered By: Stacey Barragan on 12-16-2022 RBC (Bld) [#/Vol] 4.09 10*6/uL 4.2-5.4 [facility] Blood hemoglobin measurement (mass/volume)Ordered By: Stacey Barragan on 12-16-2022 Hemoglobin (Bld) [Mass/Vol] 12.4 g/dL 12.0-15.0 [facility] Blood lymphocytes/100 leukoc ytesOrdered By: Stacey Barragan on 12-16-2022 Lymphocytes/100 WBC (Bld) 26.2 % 19-41 [facility] Blood monocytes/100 leukocyt esOrdered By: Stacey Barragan on 12-16-2022 Monocytes/100 WBC (Bld) 5.5 % 0-10 [facility] Blood platelet mean volumeOr dered By: Stacey Barragan on 12-16-2022 Platelet mean volume (Bld) [Entitic vol] 9.4 fL 6.2-12.0 [facility] CBC W/Diff, Automatedon Absolute Lymph 1.98 X10 3/uL Normal 0.83-4.51 [facility] Comment on above: Performed By: #### B TS, L3890.6100, L3890.6005, L100.0100, L3890.6300, L509.4005, L509.8000, L900.0098 #### [facility] [address] [place], [address] Absolute Neut 5.1 X10 3/uL Normal 2.0-7.7 [facility] Comment on above: Performed By: #### B TS, L3890.6100, L3890.6005, L100.0100, L3890.6300, L509.4005, L509.8000, L900.0098 #### [facility] [address] [place], [address] Basophils/100 WBC (Bld) 0.4 % Normal 0-1 [facility] Comment on above: Performed By: #### B TS, L3890.6100, L3890.6005, L100.0100, L3890.6300, L509.4005, L509.8000, L900.0098 #### [facility] [address] [place], [address] Eosinophils/100 WBC (Bld) 0.5 % Normal 0-5 [facility] Comment on above: Performed By: #### B TS, L3890.6100, L3890.6005, L100.0100, L3890.6300, L509.4005, L509.8000, L900.0098 #### [facility] [address] [place], [address] Erythrocyte distribution width (RBC) [Ratio] 12.3 % Normal 11.6-14.6 [facility] Comment on above: Performed By: #### B TS, L3890.6100, L3890.6005, L100.0100, L3890.6300, L509.4005, L509.8000, L900.0098 #### [facility] [address] [place], [address] Hematocrit (Bld) [Volume fraction] 35.5 % Low 37-47 [facility] Comment on above: Performed By: #### B TS, L3890.6100, L3890.6005, L100.0100, L3890.6300, L509.4005, L509.8000, L900.0098 #### [facility] [address] [place], [address] Hemoglobin (Bld) [Mass/Vol] 12.4 g/dL Normal 12.0-15.0 [facility] Comment on above: Performed By: #### B TS, L3890.6100, L3890.6005, L100.0100, L3890.6300, L509.4005, L509.8000, L900.0098 #### [facility] [address] [place], [address] IG% 0.400 Normal 0.0-0.9 [facility] Comment on above: Result Comment: IG% - Immature Granulocytes (promyelocytes, myelocytes and metamyelocytes) > 1% indicates that a LEFT SHIFT is Present. Performed By: #### B TS, L3890.6100, L3890.6005, L100.0100, L3890.6300, L509.4005, L509.8000, L900.0098 #### [facility] [address] [place], [address] Lymphocytes/100 WBC (Bld) 26.2 % Normal 19-41 [facility] Comment on above: Performed By: #### B TS, L3890.6100, L3890.6005, L100.0100, L3890.6300, L509.4005, L509.8000, L900.0098 #### [facility] [address] [place], [address] MCH (RBC) [Entitic mass] 30.3 pg Normal 27.0-32.0 [facility] Comment on above: Performed By: #### B TS, L3890.6100, L3890.6005, L100.0100, L3890.6300, L509.4005, L509.8000, L900.0098 #### [facility] [address] [place], [address] MCHC (RBC) [Mass/Vol] 34.9 g/dL Normal 32-36 [facility] Comment on above: Performed By: #### B TS, L3890.6100, L3890.6005, L100.0100, L3890.6300, L509.4005, L509.8000, L900.0098 #### [facility] [address] [place], [address] MCV (RBC) [Entitic vol] 86.8 fL Normal 81-99 [facility] Comment on above: Performed By: #### B TS, L3890.6100, L3890.6005, L100.0100, L3890.6300, L509.4005, L509.8000, L900.0098 #### [facility] [address] [place], [address] Monocytes/100 WBC (Bld) 5.5 % Normal 0-10 [facility] Comment on above: Performed By: #### B TS, L3890.6100, L3890.6005, L100.0100, L3890.6300, L509.4005, L509.8000, L900.0098 #### [facility] [address] [place], [address] Neutrophils/100 WBC (Bld) 67.0 % Normal 47-70 [facility] Comment on above: Performed By: #### B TS, L3890.6100, L3890.6005, L100.0100, L3890.6300, L509.4005, L509.8000, L900.0098 #### [facility] [address] [place], [address] Nucleated RBC (Bld) [#/Vol] 0 10*3/uL Normal 0-5 [facility] Comment on above: Performed By: #### B TS, L3890.6100, L3890.6005, L100.0100, L3890.6300, L509.4005, L509.8000, L900.0098 #### [facility] [address] [place], [address] Platelet mean volume (Bld) [Entitic vol] 9.4 fL Normal 6.2-12.0 [facility] Comment on above: Performed By: #### B TS, L3890.6100, L3890.6005, L100.0100, L3890.6300, L509.4005, L509.8000, L900.0098 #### [facility] [address] [place], [address] Platelets (Bld) [#/Vol] 228 10*3/uL Normal 150-450 [facility] Comment on above: Performed By: #### B TS, L3890.6100, L3890.6005, L100.0100, L3890.6300, L509.4005, L509.8000, L900.0098 #### [facility] [address] [place], [address] RBC (Bld) [#/Vol] 4.09 10*6/uL Low 4.2-5.4 [facility] Comment on above: Performed By: #### B TS, L3890.6100, L3890.6005, L100.0100, L3890.6300, L509.4005, L509.8000, L900.0098 #### [facility] [address] [place], [address] RDW SD 38.8 fl Normal 35.1-43.9 [facility] Comment on above: Performed By: #### B TS, L3890.6100, L3890.6005, L100.0100, L3890.6300, L509.4005, L509.8000, L900.0098 #### [facility] [address] [place], [address] WBC (Bld) [#/Vol] 7.6 10*3/uL Normal 4.4-11.0 [facility] Comment on above: Performed By: #### B TS, L3890.6100, L3890.6005, L100.0100, L3890.6300, L509.4005, L509.8000, L900.0098 #### [facility] [address] [facility] [place], [address] Chlamydia trachomatis rRNA d etection by probe and target amplification methodOrdered By: Stacey Barragan on 12-16-2022 C. trachomatis rRNA VAMSI+probe Ql (Unsp spec) Negative Negative [facility] Culture, urineOrdered By: Aracely Barragan on 12-16-2022 Bacteria identified Cx Nom (U) Positive [facility] Determination of erythrocyte mean corpuscular volume (MCV)Ordered By: Stacey Barragan on 12-16-2022 MCV (RBC) [Entitic vol] 86.8 fL 81-99 [facility] HIV - WCHon 12-16-2022 HIV Non-Reactive Normal Nonreactive [facility] Comment on above: Order Comment: Reaso n for Exam: Performed By: #### B TS, L3890.6100, L3890.6005, L100.0100, L3890.6300, L509.4005, L509.8000, L900.0098 ####[facility] [id number] [facility] [place], [address] HIV 1 and HIV-2 antibody ass ay with HIV-1 p24 antigen detectionOrdered By: Stacey Barragan on 12-16-2022 HIV 1+2 Ab+HIV1 p24 Ag IA Ql Non-Reactive Nonreactive [facility] Hematocrit Auto (Bld) [Volum e fraction]Ordered By: Stacey Barragan on 12-16-2022 Hematocrit (Bld) [Volume fraction] 35.5 % 37-47 [facility] Hepatitis B Surface Antigeno n 12-16-2022 HEP B Surf Ag Non-Reactive Normal Nonreactive [facility] Comment on above: Order Comment: Reaso n for Exam: Performed By: #### B TS, L3890.6100, L3890.6005, L100.0100, L3890.6300, L509.4005, L509.8000, L900.0098 ####[facility] [address] [place], [address] Hepatitis C Antibodyon 12-16 Hepatitis C Ab Non-Reactive Normal Nonreactive [facility] Comment on above: Order Comment: Reaso n for Exam: Result Comment: Non Reactive: < 0.8 Equivocal: >/= 0.8 to < 1.0 Reactive: >/= 1.0 The CDC recommends that a reactive/equivocal HCV antibody result be followed up by the HCV Nucleic Acid Amplification test (896311) Performed By: #### B TS, L3890.6100, L3890.6005, L100.0100, L3890.6300, L509.4005, L509.8000, L900.0098 ####[facility] [address] [place], [address] L509.8000on 12-16-2022 Syphilis Abs Non-Reactive Normal [facility] Comment on above: Order Comment: Reaso n for Exam: Performed By: #### B TS, L3890.6100, L3890.6005, L100.0100, L3890.6300, L509.4005, L509.8000, L900.0098 ####[facility] [address] [place], [address] Laboratory - Hematology and Cell countsOrdered By: Stacey Barragan on 12-16-2022 Erythrocyte distribution width (RBC) [Entitic vol] 38.8 fL 35.1-43.9 [facility] Erythrocyte distribution width (RBC) [Ratio] 12.3 % 11.6-14.6 [facility] Immature granulocytes/100 WBC (Bld) 0.400 % 0.0-0.9 [facility] Comment on above: IG% - Immature Granu locytes (promyelocytes, myelocytes and metamyelocytes) > 1% indicates that a LEFT SHIFT is Present. MCH (RBC) [Entitic mass] 30.3 pg 27.0-32.0 [facility] Nucleated RBC/100 WBC (Bld) [Ratio] 0 % 0-5 [facility] - Microbiology an d Antimicrobial susceptibilityOrdered By: Stacey Barragan on 12-16-2022 N. gonorrhoeae DNA VAMSI+probe Ql (Unsp spec) Negative Negative [facility] Comment on above: Performed at: [address] [id number] Director: Bella Douglas MD, Phone: [phone] MCHC Auto (RBC) [Mass/Vol]Or dered By: Stacey Barragan on 12-16-2022 MCHC (RBC) [Mass/Vol] 34.9 g/dL 32-36 [facility] NATERAon 12-16-2022 NATURA MAILED SPECIMEN Normal [facility] Comment on above: Performed By: #### B TS, L3890.6100, L3890.6005, L100.0100, L3890.6300, L509.4005, L509.8000, L900.0098 #### [facility] [address] [place], [address] No Panel InformationOrdered By: Stacey Barragan on 12-16-2022 Hepatitis B Surface Antigen Non-Reactive Nonreactive [facility] Hepatitis C Antibody Non-Reactive Nonreactive [facility] Comment on above: Non Reactive: < 0.8 Equivocal: >/= 0.8 to < 1.0 Reactive: >/= 1.0The CDC recommends that a reactive/equivocal HCV antibody result be followed up by the HCV Nucleic Acid Amplificationtest (558561) Miscellaneous Test Comment MAILED SPECIMEN [facility] Rubella IgG Antibody Reactive Nonreactive [facility] Comment on above: Antibody Results Int erpretation of Immune Status Non Reactive Presumed Non-Immune Equivocal Equivocal Reactive Presumed Immune [facility] Office Visit Reporton 12-16-2022 [facility] Office Visit Report [facility] [address] [place] [address] OFFICE VISIT Date of Service: 12/16/22 MR#: [id number] Acct: [id number] Name: RAYA AMANDA Rep #: [id number] : 1990 Provider: Dr. Stacey painter MD Age/Sex: 32/F [place] [facility] [place]: Signed Intake Vital Signs 11/07/22 09:14 12/16/22 13:31 12/16/22 13:41 Height 5 ft 5 in 5 ft 5 in 5 ft 5 in Weight: 179 lb 2 oz BMI 29.7 BP 117/75 Intake Visit Reasons: 10 WK OB Duty Manager Required: No Is patient in pain?: No Allergies No Known Allergies Allergy (Verified 12/16/22 13:42) Medications vitamin no.180-ferrous fumarate 27 mg-folic acid 1 mg tablet ( Plus Vitamin- Mineral) tab PO 12/16/22 [History Confirmed 12/16/22] Last Menstrual Period: 10/06/22 Zika: Zika virus screening: Negative : No PFSH PFSH Medical History History of cleft lip Surgical History H/O bone graft H/O cleft lip repair Family History Grandfather Cancer Social History adopted: No household members: significant other current occupational status: employed current occupation: [employer] pets and animals: Yes pets and animals: dog(s) and ferret(s) Smoking Status: Never smoker alcohol intake: current details: not while substance use type: does not use History 2 Elective abortions Hx Para 1 Spontaneous abortions Hx # Term Pregnancies Ectopic pregnancies Hx # Pregnancies Multiple births # of living children 1 Past Pregnancies Del. 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 OB Visit SALMA Calculator Estimated Delivery Date Method Current WG Current Estimate 07/12/23 LMP (Certain) 10w 2d Other Estimates 07/10/23 Ultrasound #1 10w 4d Expected Delivery Route/Plan Labor Preferences- CB/BF classes: [] labor support person: [] labor intervention preferences: [] pain management options preferred: [] cut cord/dad catch: [] : [] PP control planned: [] discussed possible routes of delivery and associated risks: [] special requests: [] Specific Issue/Plans Covid status: discussed Flu vaccine: discussed Tdap vaccine: [] Rhogam: [] LARC form signed: [] Problem list reviewed and updated with the most current plan of care details and appropriate orders placed. Relevant counseling for the gestational age provided. Continue routine care and follow up unless otherwise noted in visit notes/problem list details Initial Weight: Not Recorded Date -???-???-???-???-??? -???-???-???-???-??? -???-???- EGA Weight BP Urine Prot -???-???-???-???-??? -???-???-???-???-??? -???-???- Glucose FHR FuHt Pres Dilation -???-???-???-???-??? -???-???-???-???-??? -???-???- Effaced St Visit Note 12/16/22 -???-???-???-???-??? -???-???-???-???-??? -???-???- 10w 2d 179 lb 2 oz 117/75 -???-???-???-???-??? -???-???-???-???-??? -???-???- 160 -???-???-???-???-??? -???-???-???-???-??? -???-???- Sm- CRL 3.3c m cons with LMP Menstrual History Last Menstrual Period: 10/06/22 Reported LMP: definite Normal amount/duration: Yes On hormonal BC at conception: No Antepartum Record Genetic Screening: Congenital Heart Defect: Other, Neural Tube Defect: Other, Hemoglobinopathy Or Carrier: Other, Cystic Fibrosis: Other, Chromosome Abnormality: Other, Duran-Sachs: Other, Hemophilia: Other, Intellectual Disability/Autism: Other, Recurrent Loss/Stillbirth: Other, Other Structural Defect: Other, Other Genetic Disease: Other and Maternal Metabolic Disorder: Other Infection History: Live with someone with TB or Exposed to TB: No, Patient or Partner has history of Genital Herpes: No, Rash or Viral illness since last mentrual period: No, Prior GBS-Infected child: No, History of STD: No, HIV Infection: No, History of Hepatitis: No, Recent travel outside of [place]: No, Concern for hepatitis exposure: No and Varicella immune: Yes Medical History Medical History: Negative: Diabetes, Hypertension, Heart disease, Auto-immune disorder, Kidney disease/UTI, Neurologic/epilepsy, Psychiatric, Depression/postpartu m depression, Hepatitis/liver disease, Varicosities/phlebit is, Thyroid dysfunction, Trauma/domestic vi (more content not included)... Normal [facility] Platelets bldOrdered By: John Barragan on 12-16-2022 Platelets (Bld) [#/Vol] 228 10*3/uL 150-450 [facility] Rubella IgGon 12-16-2022 Rubella IgG Reactive Normal Nonreactive [facility] Comment on above: Order Comment: Reaso n for Exam: Result Comment: Anti body Results Interpretation of Immune Status Non Reactive Presumed Non-Immune Equivocal Equivocal Reactive Presumed Immune Performed By: #### B TS, L3890.6100, L3890.6005, L100.0100, L3890.6300, L509.4005, L509.8000, L900.0098 ####[facility] [address] [place], [address] Serum Treponema species anti body detectionOrdered By: Stacey Barragan on 12-16-2022 Treponema sp Ab Ql (S) Non-Reactive [facility] Type AND Screenon 12-16-2022 Ab SCREEN GEL Negative Normal [facility] Comment on above: Order Comment: PN Performed By: #### B TS, L3890.6100, L3890.6005, L100.0100, L3890.6300, L509.4005, L509.8000, L900.0098 #### [facility] [address] [place], [address] ABO and Rh group Nom (Bld) Blood group O Rh(D) positive Normal [facility] Comment on above: Order Comment: PN Performed By: #### B TS, L3890.6100, L3890.6005, L100.0100, L3890.6300, L509.4005, L509.8000, L900.0098 #### [facility] [address] [place], [address] Transvaginal w/Preg USon Transvaginal w/Preg US [facility] [address] [place] [address] Transvaginal w/Preg US MR#: [id number] Acct: [id number] Name: TREASURERAYA LOCKWOOD Rep #: [id number] : 1990 F 32 From: Harsha Maurice MD PCP: Care Physician,No Primary Status: REG CLI Study: Transvaginal w/Preg US Date of Exam: 11/29/22 Exam# [id number] Ordering Dr: Shaneka Sawatn SITE PROMOTION AGENT SITE PROMOTION AGENT -C INDICATION: viability COMPARISON: ultrasound 11/15/2022. ____ FINDINGS: 85 caballero scale ultrasound images demonstrate single live intrauterine measuring at 8 weeks +0 days average ultrasound age. This gives estimated date of delivery by current ultrasound of 07/11/2023. However, crown-rump length measures at 7 weeks +5 days. heart rate 150 bpm. Yolk sac is identified. Adequate amniotic fluid for gestational age. Placenta cannot be definitively identified at this gestational age. Uterine myometrium is unremarkable. Right ovarian hypoechoic lesion measuring up to 2.7 cm, consistent with corpus luteum cyst. Left ovary is suboptimally visualized, although no obvious abnormality. No significant free fluid. US/Transvaginal w/Preg US IMPRESSION: Single live intrauterine measuring at 8 weeks +0 days average ultrasound age. This gives estimated date of delivery by current ultrasound of 07/11/2023. However, crown-rump length measures at 7 weeks +5 days. Electronically Signed: Harsha Maurice MD at 4:04 EDT , CC: FUENTES Sawant; No Primary Care Physician Director Of Casino: Signed Normal [facility] Transvaginal w/Preg USon Transvaginal w/Preg US [facility] [address] [place] [address] Transvaginal w/Preg US MR#: [id number] Acct: [id number] Name: RAYA AMANDA Rep #: [id number] : 1990 F 32 From: Won finley MD PCP: Care Physician,No Primary Status: REG CLI Study: Transvaginal w/Preg US Date of Exam: 11/15/22 Exam# [id number] Ordering Dr: Shaneka Sawant NP, NP -C STUDY: FIRST TRIMESTER OBSTETRICAL ULTRASOUND REASON FOR EXAM: Female, 32 years old RLQ pain w/early LMP: October 05, 2022 TECHNIQUE: Transvaginal TECHNICAL QUALITY: Adequate. PRIOR ULTRASOUND: None. FINDINGS: There is visualization of a single gestational sac in a normal intrauterine position. The mean sac diameter (MSD) measures 1.13 cm, indicating an estimated gestational age (EGA) of 5 weeks, 6 days. The gestational sac shape is within normal limits. There is a visualized yolk sac. The yolk sac measures 3.6. The placenta is non-visualized. There is no demonstrated embryo ( pole). The estimated gestation age (EGA) by LMP is 5 weeks, 6 days. The estimated date of delivery (SALMA) by LMP is July 12, 2023. The estimated gestation age (EGA) by US is 5 weeks, 6 days. The estimated date of delivery (SALMA) by US is July 12, 2023. The uterus measures 9.1 cm x 5.7 cm x 4.8 cm. There is no demonstrated uterine fibroid. The cervix is closed. The right ovary measures 3.2 cm x 2.9 cm x 2.9 cm. There is a 2.1 cm x 1.8 cm x 1.9 cm dominant follicle in the right ovary. There is no visualized right adnexal mass or complex lesion. The left ovary measures 2.9 cm x 2.6 cm x 1.6 cm.. There is no left ovarian cyst. There is no visualized left adnexal mass or complex lesion. There is no fluid in the cul de sac. US/Transvaginal w/Preg US IMPRESSION: Intrauterine gestation with a mean gestational age of 5 weeks and 6 days. No pole is seen at this time. Electronically Signed: Won Etienne MD at 14:46 EDT , CC: FUENTES Sawant; No Primary Care Physician Director Of Casino: Signed Normal [facility] Serum or plasma choriogonado tropin detectionOrdered By: Dr. Melendez on 11-09-2022 HCG ( test) Ql 1017 mIU/mL <4 [facility] Comment on above: hCG levels with Gest ational AgeGestational Age hCG mIU/mL (IU/L)0.2 - 1 week 5 - 501-2 weeks 50 - 5002-3 weeks 100 - 33566-3 weeks 500 - 230361-3 weeks 1000 - 097159-6 weeks 93847 - 100,0006-8 weeks 90141 - 200,0002-3 months 59313 - 100,000 hCG Titer Quant., Serumon HCG QUANT. 1017 mIU/mL High 1-3 [facility] Comment on above: Result Comment: hCG levels with Gestational Age Gestational Age hCG mIU/mL (IU/L) 0.2 - 1 week 5 - 50 1-2 weeks 50 - 500 2-3 weeks 100 - 5000 3-4 weeks 500 - 42469 4-5 weeks 1000 - 14276 5-6 weeks 88319 - 100,000 6-8 weeks 61373 - 200,000 2-3 months 60023 - 100,000 Performed By: #### L 700.8000 #### [facility] [address] [place], [address] Coin Teller Office Visit Reporton 11-07-2022 Coin Teller Office Visit Report [facility] [address] [place] [address] OFFICE VISIT Date of Service: 11/07/22 MR#: [id number] Acct: [id number] Name: RAYA AMANDA Rep #: [id number] : 1990 Provider: FUENTES cabrera Age/Sex: 32/F [place] [facility] [place]: Signed Intake Vital Signs 09/04/21 10:45 11/07/22 09:13 11/07/22 09:14 Height 5 ft 5 in 5 ft 5 in 5 ft 5 in Weight: 177 lb 8 oz BMI 29.5 BP 100/64 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) Duty Manager Required: No Is patient in pain?: No Feel stressed/tense/nervo us/anxious/difficult y sleeping: not at all Allergies No Known Allergies Allergy (Verified 11/07/22 09:17) Medications norgestimate 0.25 mg-ethinyl estradiol 35 mcg tablet (Sprintec (28)) 1 tab PO QDAY #84 tabs 11/07/22 [Rx Confirmed 11/07/22] Is last menstrual period known: Yes Last Menstrual Period: 10/06/22 Post menopausal: No Patient : No : No [facility] Medical History History of cleft lip Surgical History H/O bone graft H/O cleft lip repair Family History Grandfather Cancer Social History adopted: No household members: significant other current occupational status: employed current occupation: [employer] pets and animals: Yes pets and animals: dog(s) and ferret(s) Smoking Status: Never smoker alcohol intake: current details: not while substance use type: does not use History 1 Elective abortions Hx Para 1 Spontaneous abortions Hx # Term Pregnancies Ectopic pregnancies Hx # Pregnancies Multiple births # of living children 1 Past Pregnancies Del. Date Name GA/Weeks Outcome Route Bth Weight Gen Labor Lgth Anesthesia Del Locatn Provider FOB 07/24/21 Gulshan 36 live - full term Male [facility] Jaclyn painter Delivery Date: 07/24/21 Last Updated by: Geneva Pruitt PPROM Chorio HPI Encounter for routine gynecological examination Details: RAYA AMANDA is a 32 year old who presents for annual exam. Off and on pain lower right pelvis channing with intercourse X 5 months. Same sexual partner. No longer breast feeding and wants to change to combination OCP. Last PAP: 2020 History of abnormal PAP: no Last mammogram: age 39 Colon cancer screenin Female Reproductive History Last Menstrual Period: 10/06/22 Cycle Length: 21-35 Control Method: OCP Questions: metorrhagia: No, sexually active: Yes, dyspareunia: Yes (LRQ) and PCB: No ROS Const Constitutional: Denies fatigue, weight gain or weight loss Cardio Card: Denies chest pain Resp Resp: Denies cough or dyspnea on exertion GI GI: Denies abdominal pain, bloating, change in stool character, constipation or vomiting : Reports as per HPI; Denies difficulty voiding, pelvic pain, urinary frequency, urinary incontinence, urinary urgency, vaginal discharge or vaginal pruritus Exam Const General: cooperative, healthy appearing, no acute distress and well developed Orientation: alert, oriented to person and oriented to place HENMD Head: normal to inspection Neck Neck: normal visual inspection Thyroid: thyroid normal Lymphatic: no lymphadenopathy noted Chest Breast inspection: normal inspection of the breasts and normal inspection of the axillae Breast palpation: normal palpation of the breasts, normal palpation of the axillae and no axillary lymphadenopathy Resp Effort Inspection: normal respiratory effort GI Palpation: soft, no masses and nontender Rectal Exam: deferred External Female Exam: normal external appearance and normal appearance of the urethra Urethra: normal appearance of the urethra and normal palpation Speculum Exam - Vagina: normal appearance of the vagina and normal vaginal discharge Speculum Exam - Cervix: normal appearance of the cervix Bimanual Exam- Vagina Uterus: normal bimanual exam, uterine size normal, uterine shape normal and non-tender Bimanual Exam- Adnexa, other: normal adnexae, no masses, normal and non-tender Pelvic Support: normal Neuro General: patient alert and patient oriented x3 Psych Affect: normal affect Coding Level of Care Code Off vis,new,prev 18-39yrs Diagnoses Encounter for routine gynecological examination Z01.419 Pelvic pain R10.2 Assessment and Plan Assessment and Plan (1) Encounter for routine gynecological examination: (2) Pelvic pain: Status: Acute Comment: RLQ Orders: Orders Pelvic (Non ) Today R10.2 - Pelvic and perineal pain Transvaginal Non- Today R10.2 - Pelvic (more content not included)... Normal [facility] Absolute lymphocyte counton 07-26-2021 Lymphocytes Auto (Unsp spec) [#/Vol] 1.38 10*3/uL 0.83-4.51 [facility] Work Phone: Basophil percentageon 2021 Basophils/100 WBC (Bld) 0.2 % 0-1 [facility] Work Phone: [phone] Eosinophils/100 WBC (Bld) 0.5 % 0-5 [facility] Work Phone: [phone] Lactate [Moles/Vol] 1.3 mmol/L 0.4-2.0 [facility] Work Phone: [phone] Neutrophils (Bld) [#/Vol] 14.1 10*3/uL 2.0-7.7 [facility] Work Phone: [phone] Neutrophils/100 WBC (Bld) 85.2 % 47-70 [facility] Work Phone: [phone] WBC (Bld) [#/Vol] 16.5 10*3/uL 4.4-11.0 [facility] Work Phone: [phone] Blood erythrocytes count (nu mber/volume)on 07-26-2021 RBC (Bld) [#/Vol] 3.05 10*6/uL 4.2-5.4 [facility] Work Phone: [phone] Blood hemoglobin measurement (mass/volume)on 07-26-2021 Hemoglobin (Bld) [Mass/Vol] 9.2 g/dL 12.0-15.0 [facility] Work Phone: [phone] Blood lymphocytes/100 leukoc yteson 07-26-2021 Lymphocytes/100 WBC (Bld) 8.4 % 19-41 [facility] Work Phone: [phone] Blood monocytes/100 leukocyt eson 07-26-2021 Monocytes/100 WBC (Bld) 3.8 % 0-10 [facility] Work Phone: [phone] Blood platelet mean volumeon 07-26-2021 Platelet mean volume (Bld) [Entitic vol] 11.1 fL 6.2-12.0 [facility] Work Phone: [phone] Determination of erythrocyte mean corpuscular volume (MCV)on 07-26-2021 MCV (RBC) [Entitic vol] 90.5 fL 81-99 [facility] Work Phone: Hematocrit Auto (Bld) [Volum e fraction]on 07-26-2021 Hematocrit (Bld) [Volume fraction] 27.6 % 37-47 [facility] Work Phone: [phone] Laboratory - Hematology and Cell countson 07-26-2021 Erythrocyte distribution width (RBC) [Entitic vol] 45.1 fL 35.1-43.9 [facility] Work Phone: [phone] Erythrocyte distribution width (RBC) [Ratio] 13.9 % 11.6-14.6 [facility] Work Phone: [phone] Immature granulocytes/100 WBC (Bld) 1.900 % 0.0-0.9 [facility] Work Phone: [phone] Comment on above: IG% - Immature Granu locytes (promyelocytes, myelocytes and metamyelocytes) > 1% indicates that a LEFT SHIFT is Present. MCH (RBC) [Entitic mass] 30.2 pg 27.0-32.0 [facility] Work Phone: [phone] Nucleated RBC/100 WBC (Bld) [Ratio] 0 % 0-5 [facility] Work Phone: [phone] MCHC Auto (RBC) [Mass/Vol]on 07-26-2021 MCHC (RBC) [Mass/Vol] 33.3 g/dL 32-36 [facility] Work Phone: [phone] Platelets bldon 07-26-2021 Platelets (Bld) [#/Vol] 195 10*3/uL 150-450 [facility] Work Phone: [phone] Blood manual differential co mment interpretation (narrative result)on 07-25-2021 Manual differential comment Jesse (Bld) [Interp] SCANNED [facility] Work Phone: [phone] Comment on above: NEUTROPHILIA Review by pathologiston 07-14 Pathologist review Jesse (Unsp spec) [Interp] Reviewed [facility] Work Phone: [phone] Comment on above: Previous reported re sult: November justin Edited by: ANITHA on 07/26/21:1301Neutrophilic leukocytosis.Normocytic anemia.Clinical correlation necessary.Neftali De Anda M.D. 07/26/21 AMENDED REPORT 07/26/21 1301 PATH REV previously reported as: November No Panel Informationon 07-23 Vaginal Amniotic Fluid Detection Positive Negative [facility] Work Phone: Comment on above: Amniotic fluid prese nt indicates rupture of Membranes. RESULTS CALLED TO VAIBHAV ZAMORANO 07/23/21 1626 Tobin Friedman.REPORT READ BACK BY SAME . SARS-CoV-2 Antigen (Rapid) [facility] Work Phone: No Panel Informationon 07-18 Group B Streptococcus Culture Group B Beta Streptococcus is not isolated. [facility] Work Phone: Laboratory - Chemistry and C hemistry - challengeon 07-12-2021 Glucose Ql (U) Negative [facility] Work Phone: Laboratory - Urinalysison Protein Ql (U) Trace [facility] Work Phone: Laboratory - Chemistry and C hemistry - challengeon 06-27-2021 Glucose Ql (U) Negative [facility] Work Phone: Laboratory - Urinalysison Protein Ql (U) Negative [facility] Work Phone: CNPNon 09-15-2020 CNPN Telephone (FAMDNA) RAYA AMANDA ([id number]) 1990 F Date Time Provider Department 09/15/20 NAVEED GARCIA I (HIST) SHIRA During your visit today, we recorded the following information about you: Fawad Edmond RN 09/15/2020 10:29 AM Signed Please sign order for Hep B third dose Allergies As of Date: 09/15/2020 (No Known Allergies) Date Reviewed: 04/24/2020 Reviewed by: Sylvain (Rn) DESTINY Harper - Fully Assessed Reason for Visit: Orders [681] Order(s):HEPATITIS B VACCINE, ADULT AGE 20+, IM [[id number]] Order #: [id number] Problem List As Of Date 09/15/2020 Noted Resolved MALOCCLUSION NOS [M26.4] 11/20/2005 Encounter Status:Closed by FAWAD EDMOND RN on 09/18/20 Normal [facility] Vital Signs Date Time Vital Sign Value Performing Clinician Lyle cam 08-20-2023 10:50-0500 Body height 165.1 cm No Primary Care Physician [facility] 08-20-2023 10:43-0500 Body mass index (BMI) [Ratio] 32.1 kg/m2 No Primary Care Physician [facility] 08-20-2023 10:43-0500 Body weight 87.6 kg No Primary Care Physician [facility] 08-20-2023 10:43-0500 Diastolic blood pressure 72 mm[Hg] No Primary Care Physician [facility] 08-20-2023 10:43-0500 Systolic blood pressure 130 mm[Hg] No Primary Care Physician [facility] 07-10-2023 16:07-0500 Body temperature 97.6 [degF] No Primary Care Physician [facility] 07-10-2023 16:07-0500 Diastolic blood pressure 60 mm[Hg] No Primary Care Physician [facility] 07-10-2023 16:07-0500 Heart rate 82 /min No Primary Care Physician [facility] 07-10-2023 16:07-0500 Respiratory rate 16 /min No Primary Care Physician [facility] 07-10-2023 16:07-0500 Systolic blood pressure 121 mm[Hg] No Primary Care Physician [facility] 07-10-2023 04:30-0500 SaO2% (BldA) [Mass fraction] 97 % No Primary Care Physician [facility] 07-09-2023 07:44-0500 Body height 165.1 cm No Primary Care Physician [facility] 07-09-2023 07:44-0500 Body mass index (BMI) [Ratio] 34.9 kg/m2 No Primary Care Physician [facility] 07-09-2023 07:44-0500 Body weight 95.25 kg No Primary Care Physician [facility] 07-02-2023 09:37-0500 Body mass index (BMI) [Ratio] 34.9 kg/m2 No Primary Care Physician [facility] 07-02-2023 09:37-0500 Body weight 95.25 kg No Primary Care Physician [facility] 07-02-2023 09:37-0500 Diastolic blood pressure 84 mm[Hg] No Primary Care Physician [facility] 07-02-2023 09:37-0500 Systolic blood pressure 128 mm[Hg] No Primary Care Physician [facility] 06-25-2023 09:45-0500 Body mass index (BMI) [Ratio] 34.7 kg/m2 No Primary Care Physician [facility] 06-25-2023 09:45-0500 Body weight 94.8 kg No Primary Care Physician [facility] 06-25-2023 09:45-0500 Diastolic blood pressure 76 mm[Hg] No Primary Care Physician [facility] 06-25-2023 09:45-0500 Systolic blood pressure 104 mm[Hg] No Primary Care Physician [facility] 06-17-2023 09:39-0500 Body mass index (BMI) [Ratio] 34.9 kg/m2 No Primary Care Physician [facility] 06-17-2023 09:39-0500 Body weight 95.31 kg No Primary Care Physician [facility] 06-17-2023 09:39-0500 Diastolic blood pressure 76 mm[Hg] No Primary Care Physician [facility] 06-17-2023 09:39-0500 Systolic blood pressure 113 mm[Hg] No Primary Care Physician [facility] 06-04-2023 09:39-0500 Body mass index (BMI) [Ratio] 34 kg/m2 No Primary Care Physician [facility] 06-04-2023 09:39-0500 Body weight 92.75 kg No Primary Care Physician [facility] 06-04-2023 09:39-0500 Diastolic blood pressure 79 mm[Hg] No Primary Care Physician [facility] 06-04-2023 09:39-0500 Systolic blood pressure 120 mm[Hg] No Primary Care Physician [facility] 05-22-2023 09:23-0500 Body mass index (BMI) [Ratio] 34.1 kg/m2 No Primary Care Physician [facility] 05-22-2023 09:23-0500 Body weight 92.98 kg No Primary Care Physician [facility] 05-22-2023 09:23-0500 Diastolic blood pressure 84 mm[Hg] No Primary Care Physician [facility] 05-22-2023 09:23-0500 Systolic blood pressure 120 mm[Hg] No Primary Care Physician [facility] 05-08-2023 10:40-0400 Body mass index (BMI) [Ratio] 33.1 kg/m2 No Primary Care Physician [facility] 05-08-2023 10:40-0400 Body weight 90.37 kg No Primary Care Physician [facility] 05-08-2023 10:40-0400 Diastolic blood pressure 82 mm[Hg] No Primary Care Physician [facility] 05-08-2023 10:40-0400 Systolic blood pressure 130 mm[Hg] No Primary Care Physician [facility] 04-07-2023 10:48-0400 Body height 165.1 cm No Primary Care Physician [facility] 04-07-2023 10:45-0400 Body mass index (BMI) [Ratio] 32.7 kg/m2 No Primary Care Physician [facility] 04-07-2023 10:45-0400 Body weight 89.13 kg No Primary Care Physician [facility] 04-07-2023 10:45-0400 Diastolic blood pressure 69 mm[Hg] No Primary Care Physician [facility] 04-07-2023 10:45-0400 Systolic blood pressure 106 mm[Hg] No Primary Care Physician [facility] 03-13-2023 11:34-0400 Body mass index (BMI) [Ratio] 31.6 kg/m2 No Primary Care Physician [facility] 03-13-2023 11:34-0400 Body weight 86.35 kg No Primary Care Physician [facility] 03-13-2023 11:34-0400 Diastolic blood pressure 84 mm[Hg] No Primary Care Physician [facility] 03-13-2023 11:34-0400 Systolic blood pressure 130 mm[Hg] No Primary Care Physician [facility] 02-13-2023 09:33-0400 Body mass index (BMI) [Ratio] 30.8 kg/m2 No Primary Care Physician [facility] 02-13-2023 09:33-0400 Body weight 84.08 kg No Primary Care Physician [facility] 02-13-2023 09:33-0400 Diastolic blood pressure 76 mm[Hg] No Primary Care Physician [facility] 02-13-2023 09:33-0400 Systolic blood pressure 120 mm[Hg] No Primary Care Physician [facility] 01-17-2023 10:09-0400 Body mass index (BMI) [Ratio] 30.3 kg/m2 No Primary Care Physician [facility] 01-17-2023 10:09-0400 Body weight 82.72 kg No Primary Care Physician [facility] 01-17-2023 10:09-0400 Diastolic blood pressure 76 mm[Hg] No Primary Care Physician [facility] 01-17-2023 10:09-0400 Systolic blood pressure 120 mm[Hg] No Primary Care Physician [facility] 12-16-2022 13:41-0400 Body mass index (BMI) [Ratio] 29.7 kg/m2 No Primary Care Physician [facility] 12-16-2022 13:41-0400 Body weight 81.24 kg No Primary Care Physician [facility] 12-16-2022 13:41-0400 Diastolic blood pressure 75 mm[Hg] No Primary Care Physician [facility] 12-16-2022 13:41-0400 Systolic blood pressure 117 mm[Hg] No Primary Care Physician [facility] 11-07-2022 09:14-0400 Body height 165.1 cm No Primary Care Physician [facility] 11-07-2022 09:14-0400 Body mass index (BMI) [Ratio] 29.5 kg/m2 No Primary Care Physician [facility] 11-07-2022 09:14-0400 Body weight 80.51 kg No Primary Care Physician [facility] 11-07-2022 09:14-0400 Diastolic blood pressure 64 mm[Hg] No Primary Care Physician [facility] 11-07-2022 09:14-0400 Systolic blood pressure 100 mm[Hg] No Primary Care Physician [facility] 09-04-2021 09:45-0500 Body height 165.1 cm No Primary Care Physician [facility] Work Phone: 09-04-2021 09:45-0500 Body mass index (BMI) [Ratio] 30.7 kg/m2 No Primary Care Physician [facility] Work Phone: 09-04-2021 09:45-0500 Body weight 83.91 kg No Primary Care Physician [facility] Work Phone: 09-04-2021 09:45-0500 Diastolic blood pressure 80 mm[Hg] No Primary Care Physician [facility] Work Phone: 09-04-2021 09:45-0500 Systolic blood pressure 110 mm[Hg] No Primary Care Physician [facility] Work Phone: 07-26-2021 07:15-0500 Body temperature 97.5 [degF] No Primary Care Physician [facility] Work Phone: 07-26-2021 07:15-0500 Diastolic blood pressure 55 mm[Hg] No Primary Care Physician [facility] Work Phone: 07-26-2021 07:15-0500 Heart rate 74 /min No Primary Care Physician [facility] Work Phone: 07-26-2021 07:15-0500 Respiratory rate 16 /min No Primary Care Physician [facility] Work Phone: 07-26-2021 07:15-0500 Systolic blood pressure 115 mm[Hg] No Primary Care Physician [facility] Work Phone: 07-25-2021 06:59-0500 SaO2% (BldA) [Mass fraction] 98 % No Primary Care Physician [facility] Work Phone: 07-23-2021 14:51-0500 Body mass index (BMI) [Ratio] 33 kg/m2 No Primary Care Physician [facility] Work Phone: 07-23-2021 14:51-0500 Body weight 89.9 kg No Primary Care Physician [facility] Work Phone: 07-18-2021 08:54-0500 Body mass index (BMI) [Ratio] 33.1 kg/m2 No Primary Care Physician [facility] Work Phone: 07-18-2021 08:54-0500 Body weight 90.43 kg No Primary Care Physician [facility] Work Phone: 07-18-2021 08:54-0500 Diastolic blood pressure 88 mm[Hg] No Primary Care Physician [facility] Work Phone: 07-18-2021 08:54-0500 Systolic blood pressure 118 mm[Hg] No Primary Care Physician [facility] Work Phone: 07-12-2021 08:30-0500 Body mass index (BMI) [Ratio] 32.5 kg/m2 No Primary Care Physician [facility] Work Phone: 07-12-2021 08:30-0500 Body weight 88.67 kg No Primary Care Physician [facility] Work Phone: 07-12-2021 08:30-0500 Diastolic blood pressure 72 mm[Hg] No Primary Care Physician [facility] Work Phone: 07-12-2021 08:30-0500 Systolic blood pressure 118 mm[Hg] No Primary Care Physician [facility] Work Phone: 06-27-2021 08:59-0500 Body mass index (BMI) [Ratio] 32.9 kg/m2 No Primary Care Physician [facility] Work Phone: 06-27-2021 08:59-0500 Body weight 89.81 kg No Primary Care Physician [facility] Work Phone: 06-27-2021 08:59-0500 Diastolic blood pressure 80 mm[Hg] No Primary Care Physician [facility] Work Phone: 06-27-2021 08:59-0500 Systolic blood pressure 100 mm[Hg] No Primary Care Physician [facility] Work Phone: Encounters Encounter Date Encounter Type Care Provider Facility Start: 08-20-2023 End: 08-20-2023 Patient encounter procedure No Primary Care Physician [facility] Work Phone: Start: 08-20-2023 End: 08-20-2023 ambulatory No Primary Care Physician [facility] Work Phone: Start: 08-20-2023 End: 08-20-2023 ambulatory No Primary Care Physician Facility[facility] Start: 08-20-2023 End: 08-20-2023 Patient encounter procedure No Primary Care Physician [facility] Work Phone: Start: 07-10-2023 ambulatory No Primary Car e Physician Facility:[facility] Start: 07-10-2023 Non-patient / Non-visit No Primary Care Physician [facility] Start: 07-09-2023 ambulatory No Primary Car e Physician Facility[facility] Start: 07-09-2023 End: 07-10-2023 Evaluation and management of inpatient No Primary Care Physician Facility:[facility] Start: 07-09-2023 Non-patient / Non-visit No Primary Care Physician [facility] Start: 07-09-2023 End: 07-10-2023 Evaluation and management of inpatient No Primary Care Physician [facility] Work Phone: Start: 07-02-2023 End: 07-02-2023 ambulatory No Primary Care Physician [facility] Start: 07-02-2023 End: 07-02-2023 Patient encounter procedure No Primary Care Physician [facility] Work Phone: Start: 06-25-2023 End: 06-25-2023 ambulatory No Primary Care Physician [facility] Start: 06-25-2023 End: 06-25-2023 Patient encounter procedure No Primary Care Physician [facility] Work Phone: Start: 06-17-2023 End: 06-17-2023 ambulatory Mable Wong Facility:[facility] Start: 06-17-2023 End: 06-17-2023 Patient encounter procedure No Primary Care Physician [facility] Work Phone: Start: 06-17-2023 End: 06-17-2023 Patient encounter procedure No Primary Care Physician [facility] Work Phone: Start: 06-04-2023 End: 06-04-2023 ambulatory No Primary Care Physician [facility] Start: 06-04-2023 End: 06-04-2023 Patient encounter procedure No Primary Care Physician [facility] Work Phone: Start: 05-22-2023 End: 05-22-2023 ambulatory No Primary Care Physician [facility] Start: 05-22-2023 End: 05-22-2023 Patient encounter procedure No Primary Care Physician [facility] Work Phone: Start: 05-08-2023 End: 05-08-2023 ambulatory No Primary Care Physician [facility] Start: 05-08-2023 End: 05-08-2023 Patient encounter procedure No Primary Care Physician [facility] Work Phone: Start: 04-07-2023 End: 04-07-2023 ambulatory No Primary Care Physician [facility] Start: 04-07-2023 End: 04-07-2023 ambulatory No Primary Care Physician [facility] Work Phone: Start: 04-07-2023 End: 04-07-2023 Patient encounter procedure No Primary Care Physician [facility] Work Phone: Start: 03-13-2023 End: 03-13-2023 ambulatory Mable Wong Facility[facility] Start: 03-13-2023 End: 03-13-2023 Patient encounter procedure No Primary Care Physician [facility] Work Phone: Start: 02-13-2023 End: 02-13-2023 ambulatory Mable Wong Facility[facility] Start: 02-13-2023 End: 02-13-2023 Patient encounter procedure No Primary Care Physician [facility] Work Phone: Start: 02-11-2023 End: 02-11-2023 ambulatory MD NO PRIMARY CARE [facility] Start: 01-17-2023 End: 01-17-2023 ambulatory No Primary Care Physician [facility] Start: 01-17-2023 End: 01-17-2023 Patient encounter procedure No Primary Care Physician [facility] Work Phone: Start: 12-16-2022 End: 12-16-2022 ambulatory No Primary Care Physician Facility:[facility] Start: 12-16-2022 End: 12-16-2022 Patient encounter procedure No Primary Care Physician [facility] Work Phone: Start: 11-29-2022 End: 11-29-2022 ambulatory No Primary Care Physician Facility:[facility] Start: 11-15-2022 End: 11-15-2022 ambulatory No Primary Care Physician [facility] Work Phone: Start: 11-15-2022 End: 11-15-2022 Patient encounter procedure No Primary Care Physician [facility] Start: 11-09-2022 End: 11-09-2022 ambulatory No Primary Care Physician [facility] Work Phone: Start: 11-09-2022 End: 11-09-2022 Patient encounter procedure No Primary Care Physician [facility] Start: 11-08-2022 End: 11-08-2022 Patient encounter procedure No Primary Care Physician [facility] Start: 11-08-2022 End: 11-08-2022 ambulatory No Primary Care Physician [facility] Work Phone: Start: 11-07-2022 End: 11-07-2022 ambulatory No Primary Care Physician [facility] Start: 11-07-2022 End: 11-07-2022 Patient encounter procedure No Primary Care Physician [facility] Start: 09-04-2021 End: 09-04-2021 Patient encounter procedure No Primary Care Physician [facility] Start: 07-29-2021 End: 07-29-2021 Patient encounter procedure No Primary Care Physician [facility] Start: 07-26-2021 Non-patient / Non-visit No Primary Care Physician [facility] Start: 07-25-2021 Non-patient / Non-visit No Primary Care Physician [facility] Start: 07-24-2021 Non-patient / Non-visit No Primary Care Physician [facility] Start: 07-23-2021 Non-patient / Non-visit No Primary Care Physician [facility] Start: 07-23-2021 End: 07-26-2021 Evaluation and management of inpatient No [facility] Start: 07-18-2021 End: 07-18-2021 Patient encounter procedure No Primary Care Physician [facility] Start: 07-18-2021 End: 07-18-2021 Patient encounter procedure No Primary Care Physician [facility] Start: 07-12-2021 End: 07-12-2021 Patient encounter procedure No Primary Care Physician [facility] Start: 06-27-2021 End: 06-27-2021 Patient encounter procedure No Primary Care Physician [facility] Procedures Date Procedure Procedure Detail Performing Clinician Start: 06-17-2023 Group B Streptococcu s Culture No Primary Care Physician Start: 12-16-2022 Urine culture No Primar y Care Physician Start: 11-15-2022 Transvaginal obstetr ic ultrasonography No Primary Care Physician Start: 07-23-2021 SARS-CoV-2 Antigen (Rapid) No Primary Care Physician Start: 07-18-2021 Group B Streptococcu s Culture No Primary Care Physician Plan of Treatment Date Care Activity Detail Author Start: 08-20-2023 Liquid based cervica l cytology screening [facility] Start: 07-10-2023 Patient discharge [facility] Start: 07-09-2023 Administration of medication [facility] Start: 07-09-2023 Application of ice c ollar, cap or bag [facility] Start: 07-09-2023 Catheterization of vein [facility] Start: 07-09-2023 Introduction of urin radha catheter [facility] Start: 07-09-2023 Measuring intake and output [facility] Start: 07-09-2023 Notification of physician [facility] Start: 07-09-2023 Procedure discontinued [facility] Start: 07-09-2023 Provision of activit y privileges [facility] Start: 07-09-2023 Vital signs measurements [facility] Start: 07-09-2023 [facility] Start: 07-09-2023 Admission procedure [facility] Path report.final Dx Spec [facility] Patient Education After a Vagina l [facility] Work Phone: Patient referral [facility] Work Phone: US Pelvis [facility] US Pelvis transvaginal [facility] Immunizations Immunization Date Immunization Notes Care Provider Fa cility 05-08-2023 tetanus toxoid, redu bryce diphtheria toxoid, and acellular pertussis vaccine, adsorbed No Primary Care Physician [facility] 07-12-2021 tetanus toxoid, redu bryce diphtheria toxoid, and acellular pertussis vaccine, adsorbed No Primary Care Physician [facility] 07-12-2021 diphtheria, tetanus toxoids and acellular pertussis vaccine, unspecified formulation No Primary Care Physician [facility] Work Phone: Payers Date Payer Category Payer Unknown [id number] 01 [id number] 2022 Self-pay [id number] 2022 Unknown [id number] 1990 Unknown [id number] 2.16. [id number] Unknown [id number] Unknown [id number] Unknown [id number] 2.16.8 40.1.096200.3.579.2.462 Unknown [id number] 2.16.8 40.1.374547.3.579.2.462 Unknown [id number] 2.16.8 40.1.525384.3.579.2.462 Unknown [id number] 2.16.8 40.1.860871.3.579.2.462 Unknown [id number] 2.16.8 40.1.577201.3.579.2.462 Unknown [id number] 2.16.8 40.1.349122.3.579.2.462 Unknown [id number] 2.16.8 40.1.934487.3.579.2.462 Unknown [id number] 2.16.8 40.1.270535.3.579.2.462 Unknown [id number] 2.16.8 40.1.887184.3.579.2.462 Unknown [id number] 2.16.8 40.1.813490.3.579.2.462 Unknown [id number] 2.16.8 40.1.283812.3.579.2.462 Unknown [id number] 2.16.8 40.1.637527.3.579.2.462 Unknown [id number] 2.16.8 40.1.863823.3.579.2.462 Unknown [id number] 2.16.8 40.1.128439.3.579.2.462 Unknown [id number] 2.16.8 40.1.859537.3.579.2.462 Unknown [id number] 2.16.8 40.1.668130.3.579.2.462 Unknown [id number] 2.16.8 40.1.864316.3.579.2.462 Unknown [id number] 2.16.8 40.1.829183.3.579.2.462 Unknown [id number] 2.16.8 40.1.840127.3.579.2.462 Unknown [id number] 2.16.8 40.1.638470.3.579.2.462 Unknown [id number] 2.16.8 40.1.818735.3.579.2.462 Unknown [id number] 2.16.8 40.1.353135.3.579.2.462 Unknown [id number] 2.16.8 40.1.924662.3.579.2.462 Unknown [id number] 2.16.8 40.1.687005.3.579.2.462 Unknown [id number] 2.16.8 40.1.629119.3.579.2.462 Social History Date Type Detail Facility Start: 09-04-2021 End: 08-20-2023 Tobacco smoking status NHIS Unknown if ever smoked [facility] Start: 1990 Sex Assigned At Female [facility] Goals Date Patient Goal Desired Activity /State Progress note 07-10-2023 Note Date & Type Note Facility 07-10-2023 Progress note Note Date/Time July 10, 2023 7:59am [facility] Medical Records Department [address] [place] [id number] Progress Note - OBGYN 07/10/23 0759 MR#: [id number] Acct: [id number] Name: RAYA AMANDA Rep #:[id number] : 1990 33 From: Shaneka Sawant NP [employer] PCP: Care Physician,No Primary Status :ADM IN Location: [id number] Subjective Subjective Patient doing well without complaints. Tolerating PO. Ambulating and voiding without difficulty. Feeding well. Denies chest pain, shortness of breath, calf pain/swelling, fevers, chills, lightheadedness. Objective Data Objective Data Vital Signs: Vital Signs Temp Pulse Resp BP Pulse Ox O2 Del Method 97.4 F L 72 15 119/59 L 97 Room Air 12/28/23 04:30 07/10/23 07:37 07/10/23 04:30 07/10/23 07:37 07/10/23 04:30 07/10/23 04:30 Oxygen Delivery Method Room Air Weight: 210 lb Body Mass Index (BMI) 34.9 Intake & Output: Intake and Output for Last 24 Hours 07/08/23 07/09/23 07/10/23 23:59 23:59 23:59 Intake Total 2207.50 / 2207.50 Output Total 1150 / 1150 200 / 200 Balance 1057.50 / 1057.50 -200 / -200 Lab / Micro Data 07/09/23 07:45 Labs: Laboratory Results - last 24 hr 07/09/23 07:45: WBC 9.8, RBC 3.97 L, Hgb 11.4 L, Hct 34.2 L, MCV 86.1, MCH 28.7,MCHC 33.3, RDW Std Deviation 41.3, RDW Coeff of Candice 13.2, Plt Count 193, MPV 11.2, Immature Gran % (Auto) 0.900, Neut % (Auto) 83.0 H, Lymph % (Auto) 10.5 L,Ashley % (Auto) 5.1, Eos % (Auto) 0.3, Baso % (Auto) 0.2, Absolute Neuts (auto) 8.1 H, Absolute Lymphs (auto) 1.03, Nucleated RBC % 0, Syphilis Total Ab Non-reactive, Blood Type O POSITIVE, Antibody Screen NEGATIVE Physical Exam Const alert and oriented x3 HEENT normocephalic Eyes PERRL Neck full ROM Resp normal respiratory effort GI soft to palpation GI Narrative: FF below U Assessment & Plan (1) Vaginal delivery: COMMENT: DAT 39weeks girl. adley PLAN: Plan s/p PPD # 1 1. routine post delivery care 2. breast feeding- support given 3. rh positive 4. rubella immune 5. home today 07/10/23 0756 <Electronically signed by Shaneka Sawant NP [employer]> Cosigner Signature (if applicable): CC: ~ Signed [facility] Work Phone: Discharge summary 07-09-2023 Note Date & Type Note Facility 07-09-2023 Discharge summary Note Date/Time July 09, 2023 7:19pm [facility] Medical Records Department [address] [place] [address] Instructions for Home/Discharge Instructions 07/09/231918 MR#: [id number] Acct: [id number] Name: RAYA AMANDA Rep #:[id number] : 1990 33 From: Flory Fernández CNM PCP: Care Physician,No Primary Status :ADM IN Discharge Instructions Diet Discharge Diet: No restrictions Activity Discharge Activity: May Not Drive and May Shower May resume sexual activity in: 6 weeks Weight Bearing Status: Full weight bearing Dressing / Incision Call your doctor if your incision/area has: Sudden Increased Bleeding, IncreasedPain/ Swelling and Foul Smelling Discharge Call your doctor if you observe: Fever of 101 or Higher, Numbness or Tingling, Change in Color, Inability to urinate, Inability to have a bowel movement, Usingmore than 1 pad per hour, Shortness of breath, Dizziness, Fainting spells, Chestpain, Calf discomfort and Uncontrolled pain Follow Up Care Please Follow Up With: Flory Fernández CNM When: 6 weeks , please call office to make an appointment. Congratulations on the of your baby! Test Results: Test results from this visit will be discussed in further detail at your follow-up appointment, if applicable. Discharge Plan Admission Admit Date/Time: 07/09/23 07:10 Attending Provider: Flory Fernández Primary Care Provider: Care Physician,Rina Primary Discharge Orders/Prescriptions Prescriptions: No Action Plus Vitamin-Mineral 27 mg iron- 1 mg tablet 1 tab PO DAILY Referrals / Follow Up: Care Physician,No Primary [Primary Care Provider] - Disposition Disposition (needs filled in before D/C Order can be placed): Home, Self Care 07/09/231918<Electronically signed by Flory Fernández CNM>Flory Fernández CNM CC: No Primary Care Physician ~ Signed [facility] Work Phone: Procedure note 07-09-2023 Note Date & Type Note Facility 07-09-2023 Procedure note [facility] History and physical note 07-09-2023 Note Date & Type Note Facility 07-09-2023 History and physical note Note Date/Time July 09, 2023 8:39am [facility] Medical Records Department [address] [place] [address] H&P Exam - ROSE GROWER 07/09/2338 MR#: [id number] Acct: [id number] Name: RAYA AMANDA Rep #:[id number] : 1990 33 From: Flory Fernández CNM PCP: Care Physician,No Primary Status :ADM IN Location: HP092-6 HPI - General General Date of Admission: 07/09/23 HPI Narrative RAYA AMANDA, is a 33 F who presents for elective IOL. at 39+4. uncomplicated course. good fm. no consistent ctx, lof or vb. Maternal Data Information SALMA Calculator Estimated Delivery Date Method Current WG Current Estimate 07/12/23 LMP (Certain) 39w 4d Other Estimates 07/10/23 Ultrasound #1 39w 6d PFSH PFSH Medical History (Updated 07/09/23 @ 08:43 by Flory Fernández CNM) History of cleft lip History of pre-term labor History of premature rupture of membranes (PPROM) Prolonged rupture of membranes, delivered Home Medications vitamin no.180-ferrous fumarate 27 mg-folic acid 1 mg tablet ( Plus Vitamin-Mineral) 1 tab PO DAILY 12/16/22 [History Last Taken 07/08/23 08:00] Allergy/AdvReac Type Severity Reaction Status Date / Time No Known Allergies Allergy Verified 07/09/23 07:42 Family History Grandfather Cancer Surgical History H/O bone graft H/O cleft lip repair Social History adopted: No household members: significant other current occupational status: employed current occupation: [employer] pets and animals: Yes pets and animals: dog(s) and ferret(s) Smoking Status: Never smoker alcohol intake: current details: not while substance use type: does not use History 2 Elective abortions Hx Para 1 Spontaneous abortions Hx # Term Pregnancies Ectopic pregnancies Hx # Pregnancies Multiple births # of living children 1 Past Pregnancies Del. Date Name GA/Weeks Outcome Route Bth Weight Gen Labor Lgth Anesthesia Del Locatn Provider FOB 07/24/21 Gulshan 36 live - full term Male [facility] Delivery Date: 07/24/21 Last Updated by: Geneva Pruitt PPROM Chorio Visit Details Expected Delivery Route/Plan Labor Preferences- CB/BF classes: no labor support person: Chris labor intervention preferences: [] pain management options preferred: epidural cut cord/dad catch: cord : yes PP control planned: discussed discussed possible routes of delivery and associated risks: [] special requests: [] Plans Covid status: discussed Flu vaccine: discussed Tdap vaccine: given Rhogam: NA LARC form signed: yes Problem list reviewed and updated with the most current plan of care details and appropriate orders placed. Relevant counseling for the gestational age provided. Continue routine care and follow up unless otherwise noted in visit notes/problem list details OB Flowsheet Initial Weight: Not Recorded Date -?-?-?-?-?-?-?-?-?-?-?-?- EGA Weight BP Urine Prot -?-?-?-?-?-?-?-?-?-?-?-?- Glucose FHR FuHt Pres Dilation -?-?-?-?-?-?-?-?-?-?-?-?- Effaced St Visit Note 12/16/22 -?-?-?-?-?-?-?-?-?-?-?-?- 10w 2d 179 lb 2 oz 117/75 -?-?-?-?-?-?-?-?-?-?-?-?- 160 -?-?-?-?-?-?-?-?-?-?-?-?- Sm- CRL 3.3cm co ns with LMP 01/17/23 -?-?-?-?-?-?-?-?-?-?-?-?- 14w 6d 182 lb 6 oz 120/76 Trac e -?-?-?-?-?-?-?-?-?-?-?-?- Negative 160 -?-?-?-?-?-?-?-?-?-?-?-?- KW- +fm. no vb/c tx. discussed AFP. US ordered 02/13/23 -?-?-?-?-?-?-?-?-?-?-?-?- 18w 5d 185 lb 6 oz 120/76 Nega tive -?-?-?-?-?-?-?-?-?-?-?-?- Negative 149 -?-?-?-?-?-?-?-?-?-?-?-?- JV- no complaint s today had anatomy scan that was overall normal. final a/p mentioned coming back for additional views. pt states that the last time this happened it cost them $1500. They will call [facility] and ask what they need looked at and we can see if [facility] can do it 03/13/23 -?-?-?-?-?-?-?-?-?-?-?-?- 22w 5d 190 lb 6 oz 130/84 Nega tive -?-?-?-?-?-?-?-?-?-?-?-?- Negative 150 -?-?-?-?-?-?-?-?-?-?-?-?- JV- no lof, vagi nal bleeding. or cramping. no complaints. plans to do glucola at next visit. pt has decided not to do follow up with [facility]. 04/07/23 -?-?-?-?-?-?-?-?-?-?-?-?- 26w 2d 196 lb 8 oz 106/69 -?-?-?-?-?-?-?-?-?-?-?-?- 138 26 -?-?-?-?-?-?-?-?-?-?-?-?- LC-no lof/vb/ctx . good fm. 28 week labs pending. 05/08/23 -?-?-?-?-?-?-?-?-?-?-?-?- 30w 5d 199 lb 4 oz 130/82 Nega tive -?-?-?-?-?-?-?-?-?-?-?-?- Negative 148 31 -?-?-?-?-?-?-?-?-?-?-?-?- MH-No VB, LOF. G ood FM. Larc, tdap 05/22/23 -?-?-?-?-?-?-?-?-?-?-?-?- 32w 5d 205 lb 120/84 Negative -?-?-?-?-?-?-?-?-?-?-?-?- Negative 141 33 -?-?-?-?-?-?-?-?-?-?-?-?- MH-No VB, LOF. G ood FM. Denies concerns 06/04/23 -?-?-?-?-?-?-?-?-?-?-?-?- 34w 4d 204 lb 8 oz 120/79 Nega tive -?-?-?-?-?-?-?-?-?-?-?-?- Negative 142 35 Cephalic -?-?-?-?-?-?-?-?-?-?-?-?- KW-no vb/lof/ctx . good fm. denies concerns 06/17/23 -?-?-?-?-?-?-?-?-?-?-?-?- 36w 3d 210 lb 2 oz 113/76 Nega tive -?-?-?-?-?-?-?-?-?-?-?-?- Negative 129 36 Cephalic 1 -?-?-?-?-?-?-?-?-?-?-?-?- 50 -2 JV- no lof , vaginal bleeding, or dec fm. gbs collected. 06/25/23 -?-?-?-?-?-?-?-?-?-?-?-?- 37w 4d 209 lb 104/76 Negative -?-?-?-?-?-?-?-?-?-?-?-?- Negative 135 37 Cephalic 2 -?-?-?-?-?-?-?-?-?-?-?-?- 70 -2 JV- no lof , vaginal bleeding, or dec fm. gbs is negative. 07/02/23 -?-?-?-?-?-?-?-?-?-?--?-?- 38w 4d 210 lb 128/84 Negative -?-?-?-?-?-?-?-?-?-?-?-?- Negative 140 38 Cephalic 2 .5 -?-?-?-?-?-?-?-?-?-?-?-?- 70 -2 JV- no lof vaginal bleeding, or dec fm. son having tonsillectomy on 07/20 and wondering if could have an elective IOL at 39 weeks. NST FHR Rate Baby A Baseline: 145 Variability:: Moderate Accelerations:: 15 x 15 Decelerations:: None NST Reactive:: Yes ROS Cardiovascular Cardiovascular: Denies abdominal pain, chest pain, diaphoresis or dyspnea Respiratory/Chest Respiratory/Chest: Denies change in mental status, chest congestion, chest tightness, cough, shortness of breath at rest, shortness of breath with exertion, breast mass, breast pain, breast skin changes, breast swelling, change in breast shape or nipple discharge Genitourinary Genitourinary: Reports change in urinary stream Musculoskeletal Musculoskeletal: Reports none Integumentary Integumentary: Reports none Neurologic Neurologic: Reports none Psychiatric Psychiatric: Reports none Endocrine Endocrinology: Reports none Hematologic/Lymphatic Hematologic/Lymphatic: Reports none Allergic/Immunologic Allergic/Immunologic: Reports none Vital Signs Vital Signs Vital Signs: 07/09/23 07:35 07/09/23 07:35 07/09/23 07:35 Temperature Temperature Source Temporal Pulse Rate 95 Blood Pressure 138/67 H BP Systolic 138 BP Diastolic 67 Pulse Ox 07/09/23 07:36 07/09/23 07:36 07/09/23 07:35 Temperature 97.6 F L Temperature Source Pulse Rate 102 H Blood Pressure BP Systolic BP Diastolic Pulse Ox 98 Weight Weight: 210 lb Body Mass Index (BMI) 34.9 Physical Exam Const alert, oriented x3 and no apparent distress General Appearance: cooperative, comfortable and well kempt Orientation / Consciousness: awake and oriented to person Exam Limitations: no limitations HEENT normocephalic Neck full ROM Chest inspection of chest normal Resp normal respiratory effort, normal air movement and no retractions Effort and Inspection: able to speak in complete sentences and symmetric chest movement Cardio regular rate Peripheral Pulses: pulses 2+ throughout GI normal to inspection, nondistended, normoactive bowel sounds Inspection: gravid no CVA tenderness and appearance of the vagina normal External Female Exam: normal appearance of the urethra; Negative for external lesion OB / External & Speculum: external exam normal Manual OB Exam: estimated gestational size appropriate and presentation cephalic Uterus Palpation: Negative for uterus tender Extremity normal to inspection Skin no rashes or lesions noted Neuro deep tendon reflexes 2+ bilaterally and gait normal Motor Exam: strength 5/5 throughout and clonus absent Psych Activity / Motor Behavior: appropriate eye contact Speech: normal speech Labs Labs Labs: Blood Type O POSITIVE Antibody Screen NEGATIVE Hct 34.2 % (37-47) L Hgb 11.4 g/dL (12.0-15.0) L Obstetrics Ultrasound Syphilis Total Ab Non-reactive Rubella IgG Antibody Reactive (Nonreactive) Hep Bs Antigen Non-Reactive (Nonreactive) Hepatitis C Antibody Non-Reactive (Nonreactive) Chlamydia DNA (VAMSI) Negative (Negative) N.gonorrhoeae DNA (VAMSI) Negative (Negative) HIV 1&2 Antibody Non-Reactive (Nonreactive) Glucose 1 Hr 50 gm 77 mg/dL (70-140) Assessment & Plan (1) Encounter for elective induction of labor: COMMENT: favorable cervix. PLAN: pitocin induction plan AROM once cervical change/consistent ctx. epidural when desires for pain management. (2) : QUALIFIERS: Weeks of gestation: 38 weeks Qualified Code(s): Z3A.38 - 38 weeks gestation of COMMENT: GBS neg, NIPT low risk, carrier and NTD screening declined, nl GCT (3) Supervision of high-risk : QUALIFIERS: Trimester: third trimester Qualified Code(s): O09.93 - Supervision of high risk , unspecified, third trimester COMMENT: [id number] SALMA 07/12/23 PC Gulshan Chris (4) History of cleft lip: COMMENT: unilateral with repair as infant, offered genetic counseling - declined. nl MFM anatomy US- limited views has fu ordered in 2 weeks which pt cancelled on 03/04 and did not reschedule PLAN: Plan Dr. Roberts updated on admission, exam and poc. agrees with iol method. 07/09/23 0844 <Electronically signed by Flory Fernández CNM> Cosigner Signature (if applicable): CC: ERIN Fernández; No Primary Care Physician~ Signed [facility] Work Phone: Evaluation note Note Date & Type Note Facility Evaluation note Diagnosis Onset Date History of cleft lip acute History of cleft lip acute History of cleft lip acute Chorioamnionitis in third trimester resolved PROM (premature rupture of membranes) resolved Vaginal delivery resolved [facility] Work Phone: Evaluation note Note Date & Type Note Facility Evaluation note Diagnosis Onset Date Pelvic pain acute Encounter for routine gyneco logical examination noneactive [facility] Work Phone: Evaluation note Note Date & Type Note Facility Evaluation note Diagnosis Onset Date History of cleft lip acute acute Supervision of high-risk acute History of cleft lip acute acute Supervision of high-risk acute History of cleft lip acute acute Supervision of high-risk acute History of cleft lip acute acute Supervision of high-risk acute History of cleft lip acute acute Supervision of high-risk acute [facility] Work Phone: Evaluation note Note Date & Type Note Facility Evaluation note Diagnosis Onset Date History of cleft lip acute History of cleft lip acute History of cleft lip acute History of cleft lip acute History of cleft lip acute History of cleft lip acute History of cleft lip acute History of cleft lip acute Vaginal delivery acute [facility] Work Phone: Evaluation note Note Date & Type Note Facility Evaluation note Diagnosis Onset Date History of cleft lip acute History of cleft lip acute History of cleft lip acute History of cleft lip acute History of cleft lip acute History of cleft lip acute Routine Follow-Up noneactive [facility] Work Phone: Summary Purpose Family History No Family History Records Found Relationship Condition Age at Onset Recorded Date/T juanito grandfather Malignant neoplasm Unknown Advance Directives No Advanced Directives Records Found Advance Directive Response Recorded Date/ Time Living Will No July 30 12:23pm Power of Orthodontic Lab Technician No July 30, 2021 12:23pm Advance Directive Response Recorded Date/ Time Living Will No July 09 023 7:57am Power of Orthodontic Lab Technician No July 09, 2023 7:57am Chief Complaint and Reason for Visit Chief Complaint 34 WK OB 36 WK OB 37 WK OB 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 VAGINAL DELIVERY VAGINAL DELIVERY VAGINAL DELIVERY first baby , 36 weeks 6WK PP, DECLINED IUD Reason for Visit History of cleft lip History of cleft lip History of cleft lip Chorioamnionitis in third trimester PROM (premature rupture of membranes) Vaginal delivery Chief Complaint 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 Reason for Visit Pelvic pain Encounter for routine gynecological examination Chief Complaint 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 PAIN IN RLQ Reason for Visit Pelvic pain Encounter for routine gynecological examination Chief Complaint 10 WK OB 14 WK OB 18 WK OB 22 WK OB E ORDER 26 WK OB / GLUCOSE Reason for Visit History of cleft lip Supervision of high-risk History of cleft lip Supervision of high-risk History of cleft lip Supervision of high-risk History of cleft lip Supervision of high-risk History of cleft lip Supervision of high-risk Chief Complaint 22 WK OB E ORDER 26 WK OB / GLUCOSE 30 WK OB 32 WK OB 34 WK OB 36 WK OB 37 WK OB 38 WK OB VAG DELIVERY INDUCTION VAG DELIVERY Reason for Visit History of cleft lip History of cleft lip History of cleft lip History of cleft lip History of cleft lip History of cleft lip History of cleft lip History of cleft lip Vaginal delivery Chief Complaint 30 WK OB 32 WK OB 34 WK OB 36 WK OB 37 WK OB 38 WK OB VAG DELIVERY INDUCTION VAG DELIVERY visit (obstetrics) PAP Reason for Visit History of cleft lip History of cleft lip History of cleft lip History of cleft lip History of cleft lip History of cleft lip Routine Follow-Up Additional Source Comments INFORMATION SOURCE (unrecogn ized section and content) DATE CREATED AUTHOR 07/02/2021 [facility] DATE CREATED AUTHOR AUTHOR'S ORGANIZ ATION 02/12/2023 [facility] DATE CREATED AUTHOR AUTHOR'S ORGANIZ ATION 08/27/2023 [facility] Goals (unrecognized section and content) Goals may be documented in a n alternate sectionGoals may be documented in an alternate sectionGoals may be documented in an alternate sectionGoals may be documented in an alternate sectionGoals may be documented in an alternate section Care Teams (unrecognized sec tion and content) Team Status: Active Member Role Status Dates No Primary Care Physician Primary Care Provider Active Team Status: Inactive Member Role Status Dates No Primary Care Physician Primary Care Provider, Refer ring Provider Active Shaneka Sawant SITE PROMOTION AGENT, SITE PROMOTION AGENT-C Attending Provider Active Team Status: Active Member Role Status Dates No Primary Care Physician Primary Care Provider Active Dr. Mable Wong DO Attending Provider, Refe rring Provider Active Team Status: Inactive Member Role Status Dates No Primary Care Physician Primary Care Provider Active Shaneka Sawant SITE PROMOTION AGENT, SITE PROMOTION AGENT-C Attending Provider, Referring Provider Active Dr. Mable Wong DO Other Provider Active Team Status: Inactive Member Role Status Dates No Primary Care Physician Primary Care Provider Active Dr. Mable Wong DO Attending Provider, Refe rring Provider Active Team Status: Inactive Member Role Status Dates No Primary Care Physician Primary Care Provider Active Shaneka Sawant SITE PROMOTION AGENT, SITE PROMOTION AGENT-C Attending Provider, Referring Provider Active Team Status: Inactive Member Role Status Dates No Primary Care Physician Primary Care Provider, Refer ring Provider Active Dr. Stacey Barragan MD Attending Provider Active Team Status: Inactive Member Role Status Dates No Primary Care Physician Primary Care Provider, Refer ring Provider Active Jeanne Vera CNM Attending Provider Active Team Status: Inactive Member Role Status Dates No Primary Care Physician Primary Care Provider, Refer ring Provider Active Dr. Mable Wong DO Attending Provider Activ e Team Status: Inactive Member Role Status Dates No Primary Care Physician Primary Care Provider, Refer ring Provider Active Flory Fernández CNM Attending Provider Active Team Status: Inactive Member Role Status Dates No Primary Care Physician Primary Care Provider Active Dr. Stacey Barragan MD Attending Provider, Referr ing Provider Active Team Status: Active Member Role Status Dates No Primary Care Physician Primary Care Provider Active Dr. Mable Wong DO Admit Provider, Other Pr ovider Active Flory Fernández CNM Attending Provider Active Team Status: Active Member Role Status Dates No Primary Care Physician Primary Care Provider Active Flory Fernández CNM Admit Provider, Other Provider A ctive Shaneka Sawant SITE PROMOTION AGENT, SITE PROMOTION AGENT-C Attending Provider Active Team Status: Inactive Member Role Status Dates No Primary Care Physician Primary Care Provider Active Flory Fernández CNM Admit Provider, Attending Provid er Active FOR RECORDS PERTAINING TO PATIENTS WHO ARE OR HAVE BEEN ENROLLED IN A CHEMICAL DEPENDENCY/SUBSTANCEABUSE PROGRAM, SOME INFORMATION MAY BE OMITTED. This clinical summary was aggregated from multiple sources. Caution should be exercised in using it in the provision of clinical care. This summary normalizes information from multiple sources, and as a consequence, information in this document may materially change the coding, format and clinical context of patient data. In addition, data may be omitted in some cases. CLINICAL DECISIONS SHOULD BE BASED ON THE PRIMARY CLINICAL RECORDS. [facility]. provides no warranty or guarantee of the accuracy or completeness of information in this document.
[2024-12-17 18:08] LABS: HPV APTIMA, High Risk Negative (Negative)
== END | disposition home or self-care (01) ==
PROVIDERS: Referring Provider Nurse Practitioner Family; Visit Provider Nurse Practitioner Family
DX: Z12.4 Encounter for screening for malignant neoplasm of cervix (principal); R87.610 Atypical squamous cells of undetermined significance on cytologic smear of cervix (ASC-US); R87.810 Cervical high risk human papillomavirus (HPV) DNA test positive
CPT/HCPCS: 87624; 88175; G0145